=== PATIENT | female | born 1955 | race Caucasian/White ===

== ENCOUNTER → 2017-02-25 08:23 | Outpatient (POV) | payer MEDICARE, BC, SELFPAY ==
[2017-02-25 08:36] VITALS: BP 132/73; PULSE 69; RESP 18; O2SAT 94; BMI 37.3
--- NOTE | 2017-02-25 09:00 | P.CONS_ITS ---
[facility] Pain Management SOAP Note Subjective:: Patient is a very pleasant 61-year-old white female returns to our pain clinic today for follow-up visit after receiving a therapeutic lumbar epidural steroid injection at the L4-5 level. She reports 90% improvement terms of her low back pain as well as bilateral hip and leg pain after receiving the injection. Today her complaint is slight lumbar back pain that she describes as constant, dull, aching. However, she rates the pain 2/10. Patient reports the pain is a fraction of what it was prior to the injection. We have been treating her for degenerative disc disease lumbar spine with levels. Lumbar spondylosis. Multilevel lumbar facet arthropathy Objective:: She is awake alert oriented ?3. In no acute distress per action extension of the lumbar spine somewhat guarded standard pain. Deep tendon reflexes upper and lower extremities normal. Motor strength upper and lower extremities normal. There is no gross sensory deficit. Gait is normal. Assessment:: Disc disease lumbar spine multilevel spread lumbar spondylosis. Multilevel lumbar facet arthropathy Plan:: We will plan therapeutic lumbar epidural steroid injection as needed. Patient will return to see us in 2 months
== END ==
PROVIDERS: Family Provider Family Medicine; PCP Family Medicine; Visit Provider Nurse Anesthetist, Certified Registered
DX: M47.816 Spondylosis without myelopathy or radiculopathy, lumbar region (principal)
CPT/HCPCS: 99212

== ENCOUNTER → 2017-03-19 11:12 | Outpatient (CLI) | payer MEDICARE, BC, SELFPAY ==
[2017-03-19 12:19] LABS: Alanine Aminotransferase 38 U/L (12-78); Albumin/Globulin Ratio 1.4 (1.1-1.8); Alkaline Phosphatase 42 U/L (46-116); Anion Gap 10.7 mEq/L (5-15); Aspartate Amino Transferase 23 U/L (15-37); Bilirubin,Total 0.6 mg/dL (0.2-1.0); Blood Urea Nitrogen 23 mg/dL (7-18); Calcium 9.2 mg/dL (8.5-10.1); Carbon Dioxide 33 mmol/L (21.0-32.0); Chloride 105 mmol/L (98-107); Chol/HDL Ratio 4.3 (1-3.5); Cholesterol 190 mg/dL (140-200); Creatinine,Serum 0.96 mg/dL (0.55-1.02); Estimated Glomerular Filt Rate 59 ml/min (>60); Free T4 (Free Thyroxine) 1.74 ng/dl (0.76-1.46); GFR (African American) 71 ML/MIN (>60); Globulin 2.8 gm/dl (1.3-3.2); Glucose 96 mg/dL (74-106); HDL Cholesterol 44 mg/dL (29-89); LDL Cholesterol 111 mg/dL (0-130); Magnesium 1.7 mg/dL (1.4-2.2); Potassium 3.7 mmoL/L (3.5-5.1); Sodium 145 mmol/L (136-145); Thyroid Stimulating Hormone 0.45 uIU/ml (0.358-3.740); Total Protein,Serum 6.8 gm/dL (6.4-8.2); Triglycerides 173 mg/dL (30-200); VLDL Cholesterol 35 mg/dL (0-40)
== END ==
PROVIDERS: PCP Family Medicine; Visit Provider Family Medicine
DX: E78.2 Mixed hyperlipidemia (principal); E03.9 Hypothyroidism, unspecified
CPT/HCPCS: 36415; 80053; 80061; 83735; 84439; 84443

== ENCOUNTER → 2017-04-29 08:32 | Outpatient (POV) | payer MEDICARE, BC, SELFPAY ==
[2017-04-29 09:13] VITALS: BP 145/77; PULSE 74; RESP 18; O2SAT 94; BMI 37.0
--- NOTE | 2017-04-29 09:27 | HMH.PAINSOAP ---
[facility] Pain Management SOAP Note Subjective:: Patient is a very pleasant 62-year-old white female who returns to our pain clinic for follow-up in regards to her low back pain. She has had excellent relief from lumbar epidural steroid injections in the past. Patient received 80-90% relief of her pain symptoms for several months after each injection. Patient states her lumbar back pain is beginning to return. Patient states her pain is a 6 out of 10 today. Patient states most of her pain is in her low back and can intermittently go into her legs. Patient is much more functional after lumbar epidural steroid injections. Patient has tried and failed anti-inflammatory medications and physical therapy in the past. ROS General: no recent weight change, no fever, no sleep disturbances Respiratory: no cough, no shortness of air, no recurring pulmonary infections Cardiovascular/Peripheral Vascular: No chest pain, No palpitations, no edema, no shortness of breath. Gastrointestinal: no incontinence, normal bowel movements reported Genitourinary: no incontinence Musculoskeletal: Back pain Psychiatric: normal mood/ affect, [denies depression], [denies anxiety] Neurological: [denies weakness in extremities], [denies balance issues] Objective:: Physical Exam General: Alert and oriented x3, no acute distress, pleasant and cooperative, [on room air] Lungs: Resps E/U, Symmetrical chest expansion, Eyes: PERRL Musculoskeletal: Flexion and extension of lumbar spine somewhat guarded secondary to pain, deep tendon reflexes normal, strength in upper and lower extremities [5/5], normal gait noted, positive straight leg test bilaterally at 30? Neurological: speech clear, counter person equal, no gross sensory deficits Assessment:: Degenerative disc disease of the lumbar spine with lumbar radiculopathy, lumbar spondylosis, facet arthropathy Plan:: We will plan a repeat L4-L5 lumbar epidural steroid injection. Patient gets good relief from this. Patient has tried and failed anti-inflammatories and physical therapy. This note was dictated using voice recognition software and may contain errors or omissions
--- NOTE | 2017-04-29 09:30 | P.CONS_ITS ---
[facility] Pain Management SOAP Note Subjective:: Patient is a very pleasant 62-year-old white female who returns to our pain clinic for follow-up in regards to her low back pain. She has had excellent relief from lumbar epidural steroid injections in the past. Patient received 80 -90% relief of her pain symptoms for several months after each injection. Patient states her lumbar back pain is beginning to return. Patient states her pain is a 6 out of 10 today. Patient states most of her pain is in her low back and can intermittently go into her legs. Patient is much more functional after lumbar epidural steroid injections. Patient has tried and failed anti- inflammatory medications and physical therapy in the past. ROS General: no recent weight change, no fever, no sleep disturbances Respiratory: no cough, no shortness of air, no recurring pulmonary infections Cardiovascular/Peripheral Vascular: No chest pain, No palpitations, no edema, no shortness of breath. Gastrointestinal: no incontinence, normal bowel movements reported Genitourinary: no incontinence Musculoskeletal: Back pain Psychiatric: normal mood/ affect, [denies depression], [denies anxiety] Neurological: [denies weakness in extremities], [denies balance issues] Objective:: Physical Exam General: Alert and oriented x3, no acute distress, pleasant and cooperative, [ on room air] Lungs: Resps E/U, Symmetrical chest expansion, Eyes: PERRL Musculoskeletal: Flexion and extension of lumbar spine somewhat guarded secondary to pain, deep tendon reflexes normal, strength in upper and lower extremities [5/5], normal gait noted, positive straight leg test bilaterally at 30? Neurological: speech clear, addictions counselor equal, no gross sensory deficits Assessment:: Degenerative disc disease of the lumbar spine with lumbar radiculopathy, lumbar spondylosis, facet arthropathy Plan:: We will plan a repeat L4-L5 lumbar epidural steroid injection. Patient gets good relief from this. Patient has tried and failed anti-inflammatories and physical therapy. This note was dictated using voice recognition software and may contain errors or omissions
== END ==
PROVIDERS: Family Provider Family Medicine; PCP Family Medicine; Visit Provider Clinical Nurse Specialist Family Health
DX: M54.16 Radiculopathy, lumbar region (principal)
CPT/HCPCS: 99212

== ENCOUNTER 2017-05-15 12:40 | Day surgery (SDC) | payer MEDICARE, BC, SELFPAY ==
[2017-05-15 13:12] VITALS: BP 137/72; PULSE 71; RESP 18; TEMP 36.8; O2SAT 94; BMI 37.4
--- NOTE | 2017-05-15 13:40 | HMH.PMPROC ---
- Procedure Date: 05/15/17 Time: 13:40 Anesthesiologist:: Anders Nieto MD Complications:: None Pre-procedure Diagnosis:: Degenerative disc disease of lumbar spine with lumbar radiculopathy symptoms, lumbar spondylosis and facet arthropathy Post-procedure Diagnosis:: same Indications for Procedure:: Patient is a pleasant 62-year-old white female who we are treating her low back pain with lumbar radiculopathy symptoms. She had 80-90% relief of her pain symptoms for several months after her last injection. Her pain is starting to return. We will do repeat lumbar epidural steroid injection today to see if this gives her additional benefit. Procedure Details:: Lumbar epidural steroid injection under fluoroscopy Informed consent was obtained and the risk and benefits of the procedure was explained to the patient. The patient was taken to the procedure room. The patient was placed prone on the procedure table. The patient was prepped and draped in sterile fashion. C-arm fluoroscopy was used to view the lumbar spine. Skin and subcutaneous tissues were anesthetized using lidocaine. I placed an 18-gauge epidural needle and advanced into the L4-L5 interspace using fluoroscopic guidance and [id number] to air. After confirmation of needle placement in the epidural space with dye I injected 2 mL of lidocaine 1.5% with Depo-Medrol 80 mg. Patient tolerated the procedure well with no complications. Plan and Disposition:: We will follow-up with her in 2 weeks. We will reevaluate her symptoms at that time.
[2017-05-15 13:41] VITALS: BP 149/83; PULSE 67; RESP 18
[2017-05-15 13:42] VITALS: BP 136/69; PULSE 63; RESP 18
--- NOTE | 2017-05-15 13:45 | P.PCN_ITS ---
- Procedure Date: 05/15/17 Time: 13:40 Anesthesiologist:: Anders Nieto MD Complications:: None Pre-procedure Diagnosis:: Degenerative disc disease of lumbar spine with lumbar radiculopathy symptoms, lumbar spondylosis and facet arthropathy Post-procedure Diagnosis:: same Indications for Procedure:: Patient is a pleasant 62-year-old white female who we are treating her low back pain with lumbar radiculopathy symptoms. She had 80-90% relief of her pain symptoms for several months after her last injection. Her pain is starting to return. We will do repeat lumbar epidural steroid injection today to see if this gives her additional benefit. Procedure Details:: Lumbar epidural steroid injection under fluoroscopy Informed consent was obtained and the risk and benefits of the procedure was explained to the patient. The patient was taken to the procedure room. The patient was placed prone on the procedure table. The patient was prepped and draped in sterile fashion. C-arm fluoroscopy was used to view the lumbar spine. Skin and subcutaneous tissues were anesthetized using lidocaine. I placed an 18-gauge epidural needle and advanced into the L4-L5 interspace using fluoroscopic guidance and [id number] to air. After confirmation of needle placement in the epidural space with dye I injected 2 mL of lidocaine 1.5 % with Depo-Medrol 80 mg. Patient tolerated the procedure well with no complications. Plan and Disposition:: We will follow-up with her in 2 weeks. We will reevaluate her symptoms at that time.
[2017-05-15 13:52] VITALS: BP 148/72; PULSE 66; RESP 8; O2SAT 95
== END 2017-05-15 13:55 | disposition home or self-care (01) ==
LOC: SC.PAINP 12:42
PROVIDERS: Family Provider Family Medicine; PCP Family Medicine; Visit Provider Anesthesiology
DX: M51.16 Intervertebral disc disorders with radiculopathy, lumbar region (principal); M47.896 Other spondylosis, lumbar region; M12.88 Other specific arthropathies, not elsewhere classified, other specified site
CPT/HCPCS: 62323; J1040; Q9966

== ENCOUNTER → 2017-06-04 09:52 | Outpatient (POV) | payer MEDICARE, BC, SELFPAY ==
[2017-06-04 10:11] VITALS: BP 159/75; PULSE 88; RESP 20
--- NOTE | 2017-06-04 13:04 | HMH.PAINSOAP ---
[facility] Pain Management SOAP Note Subjective:: Patient is a very pleasant 62-year-old white female who returns to our pain clinic for follow-up after lumbar epidural steroid injection. Patient received 80% relief pain symptoms. She is doing quite well still. Patient states that she would like to have another injection when her lumbar back pain is beginning to return. Patient rates her pain a 3 out of 10 today. Patient states when she has pain it is in her low back and can intermittently go into her legs. Patient is much more functional after lumbar epidural steroid injections. Patient has tried and failed anti-inflammatory medications and physical therapy in the past. ROS General: no recent weight change, no fever, no sleep disturbances Respiratory: no cough, no shortness of air, no recurring pulmonary infections Cardiovascular/Peripheral Vascular: No chest pain, No palpitations, no edema, no shortness of breath. Gastrointestinal: no incontinence, normal bowel movements reported Genitourinary: no incontinence Musculoskeletal: Back pain Psychiatric: normal mood/ affect, [denies depression], [denies anxiety] Neurological: [denies weakness in extremities], [denies balance issues] Objective:: Physical Exam General: Alert and oriented x3, no acute distress, pleasant and cooperative, [on room air] Lungs: Resps E/U, Symmetrical chest expansion, Eyes: PERRL Musculoskeletal: Flexion and extension of lumbar spine somewhat guarded secondary to pain, deep tendon reflexes normal, strength in upper and lower extremities [5/5], slightly antalgic gait noted, bilateral straight leg raise test positive at 30?. Neurological: speech clear, bead machine operator equal, no gross sensory deficits Assessment:: Degenerative disc disease of the lumbar spine with lumbar radiculopathy symptoms, lumbar spondylosis and facet arthropathy Plan:: We will schedule the patient another lumbar epidural steroid injection at L4-L5. Given the efficacy of her previous injections. We will schedule her several weeks out. Patient is doing well at this time. Patient's tried and failed anti-inflammatories, medications, physical therapy and stretching therapy. Patient is doing extremely well with injective therapy. This note was dictated using voice recognition software and may contain errors or omissions
--- NOTE | 2017-06-04 13:07 | P.CONS_ITS ---
[facility] Pain Management SOAP Note Subjective:: Patient is a very pleasant 62-year-old white female who returns to our pain clinic for follow-up after lumbar epidural steroid injection. Patient received 80% relief pain symptoms. She is doing quite well still. Patient states that she would like to have another injection when her lumbar back pain is beginning to return. Patient rates her pain a 3 out of 10 today. Patient states when she has pain it is in her low back and can intermittently go into her legs. Patient is much more functional after lumbar epidural steroid injections. Patient has tried and failed anti-inflammatory medications and physical therapy in the past. ROS General: no recent weight change, no fever, no sleep disturbances Respiratory: no cough, no shortness of air, no recurring pulmonary infections Cardiovascular/Peripheral Vascular: No chest pain, No palpitations, no edema, no shortness of breath. Gastrointestinal: no incontinence, normal bowel movements reported Genitourinary: no incontinence Musculoskeletal: Back pain Psychiatric: normal mood/ affect, [denies depression], [denies anxiety] Neurological: [denies weakness in extremities], [denies balance issues] Objective:: Physical Exam General: Alert and oriented x3, no acute distress, pleasant and cooperative, [ on room air] Lungs: Resps E/U, Symmetrical chest expansion, Eyes: PERRL Musculoskeletal: Flexion and extension of lumbar spine somewhat guarded secondary to pain, deep tendon reflexes normal, strength in upper and lower extremities [5/5], slightly antalgic gait noted, bilateral straight leg raise test positive at 30?. Neurological: speech clear, client renewal specialist equal, no gross sensory deficits Assessment:: Degenerative disc disease of the lumbar spine with lumbar radiculopathy symptoms , lumbar spondylosis and facet arthropathy Plan:: We will schedule the patient another lumbar epidural steroid injection at L4- L5. Given the efficacy of her previous injections. We will schedule her several weeks out. Patient is doing well at this time. Patient's tried and failed anti-inflammatories, medications, physical therapy and stretching therapy. Patient is doing extremely well with injective therapy. This note was dictated using voice recognition software and may contain errors or omissions
== END ==
PROVIDERS: Family Provider Family Medicine; PCP Family Medicine; Visit Provider Clinical Nurse Specialist Family Health
DX: M47.26 Other spondylosis with radiculopathy, lumbar region (principal)
CPT/HCPCS: 99212

== ENCOUNTER → 2017-07-22 10:53 | Outpatient (POV) | payer MEDICARE, BC, SELFPAY ==
[2017-07-22 11:19] VITALS: BP 148/70; PULSE 63; RESP 18; O2SAT 98; BMI 38.1
--- NOTE | 2017-07-22 13:02 | HMH.PAINSOAP ---
[facility] Pain Management SOAP Note Subjective:: Is a pleasant 62-year-old white female who presents today for follow-up after lumbar epidural steroid injection. Patient states she is not getting the same relief that she typically does from these injections. She is also having a new onset of bilateral leg weakness. Patient not had recent MRI. Patient denies any bowel or bladder dysfunction. Patient states that she will be standing in her legs will just give out. Patient is also having myofascial pain and thoracic paraspinous. Patient has had trigger point injections in the past with good relief. She is interested in repeating these. ROS General: no recent weight change, no fever, no sleep disturbances Respiratory: no cough, no shortness of air, no recurring pulmonary infections Cardiovascular/Peripheral Vascular: No chest pain, No palpitations, no edema, no shortness of breath. Gastrointestinal: no incontinence, normal bowel movements reported Genitourinary: no incontinence Musculoskeletal: Back pain, myofascial pain Psychiatric: normal mood/ affect Neurological: [denies weakness in extremities], [denies balance issues] Objective:: Physical Exam General: Alert and oriented x3, no acute distress, pleasant and cooperative, [on room air] Lungs: Resps E/U, Symmetrical chest expansion, Eyes: PERRL Musculoskeletal: Flexion and extension of lumbar spine somewhat guarded secondary to pain, deep tendon reflexes normal, strength in upper and lower extremities [5/5], antalgic gait noted, positive straight leg raise test at 30? bilaterally, palpable trigger points of the thoracic paraspinous Neurological: speech clear, rock singer equal, no gross sensory deficits Assessment:: Degenerative disc disease of the lumbar spine with lumbar radiculopathy symptoms and myofascial pain syndrome Plan:: We will schedule trigger point injections of the thoracic paraspinous bilaterally. We will schedule an MRI for the patient to discern new lumbar pathology given the new onset of weakness in her bilateral lower legs. I will follow-up with the patient after her injections or her MRI which ever comes first. This note was dictated using voice recognition software and may contain errors or omissions
--- NOTE | 2017-07-22 13:06 | P.CONS_ITS ---
[facility] Pain Management SOAP Note Subjective:: Is a pleasant 62-year-old white female who presents today for follow-up after lumbar epidural steroid injection. Patient states she is not getting the same relief that she typically does from these injections. She is also having a new onset of bilateral leg weakness. Patient not had recent MRI. Patient denies any bowel or bladder dysfunction. Patient states that she will be standing in her legs will just give out. Patient is also having myofascial pain and thoracic paraspinous. Patient has had trigger point injections in the past with good relief. She is interested in repeating these. ROS General: no recent weight change, no fever, no sleep disturbances Respiratory: no cough, no shortness of air, no recurring pulmonary infections Cardiovascular/Peripheral Vascular: No chest pain, No palpitations, no edema, no shortness of breath. Gastrointestinal: no incontinence, normal bowel movements reported Genitourinary: no incontinence Musculoskeletal: Back pain, myofascial pain Psychiatric: normal mood/ affect Neurological: [denies weakness in extremities], [denies balance issues] Objective:: Physical Exam General: Alert and oriented x3, no acute distress, pleasant and cooperative, [ on room air] Lungs: Resps E/U, Symmetrical chest expansion, Eyes: PERRL Musculoskeletal: Flexion and extension of lumbar spine somewhat guarded secondary to pain, deep tendon reflexes normal, strength in upper and lower extremities [5/5], antalgic gait noted, positive straight leg raise test at 30? bilaterally, palpable trigger points of the thoracic paraspinous Neurological: speech clear, satellite instruction facilitator equal, no gross sensory deficits Assessment:: Degenerative disc disease of the lumbar spine with lumbar radiculopathy symptoms and myofascial pain syndrome Plan:: We will schedule trigger point injections of the thoracic paraspinous bilaterally. We will schedule an MRI for the patient to discern new lumbar pathology given the new onset of weakness in her bilateral lower legs. I will follow-up with the patient after her injections or her MRI which ever comes first. This note was dictated using voice recognition software and may contain errors or omissions
== END ==
PROVIDERS: Family Provider Family Medicine; PCP Family Medicine; Visit Provider Clinical Nurse Specialist Family Health
DX: M54.16 Radiculopathy, lumbar region (principal)
CPT/HCPCS: 99212

== ENCOUNTER → 2017-07-26 09:57 | Outpatient (CLI) | payer MEDICARE, BC, SELFPAY ==
--- NOTE | 2017-07-26 10:00 | MR_ITS ---
MR lumbar spine wo con, MR 3-d myelogram/MRCP Ordering Physician: Anders Nieto MD Patient Age: 62 years: Female HISTORY: ITS.REASON: WORSENING LOW BACK PAIN Left-sided low back pain numbness in lower back weakness left leg symptoms one year. No trauma. TECHNIQUE: Sagittal STIR, T1, T2, axial T1 and T2. On 1.5T Siemens wide bore MRI. 3-D MR myelogram image set obtained & performed on MRI workstation. Additional sagittal thin section T2 weighted dataset obtained from this latter acquisition as well (---76 CPT) COMPARISON :03/08/[address] abdomen pelvis from April 2015 FINDINGS Anterolisthesis L4 on L5 is again noted and stable with the postsurgical changes L4/L5 Conus ends appropriately at L1. It the thecal sac tapers rather abruptly at S1 level with small perineural cyst midline at S1-S2 level L5/S1 trace disc space narrowing minimal mild disc bulge.. Suggestion of small additional focal disc protrusion just left of midline , best seen on axial image 23.. & Sagittal/8 T1 weighted image set.. The small disc protrusion to the left slightly flattened/ indents the thecal sac to the left & may just impinge upon exiting right S1 nerve root. Are there left S1 or S2 radicular symptoms??. This feature appears perhaps very slightly more evident than on February 2015 MR.. Moderate/generous Bilateral facet hypertrophy and arthropathy also seen at this level of significant progress subtle somewhat.. L4/5. Slight 4 mm anterolisthesis of L4 on L5 is again noted. Scant if any disc bulge. Appears to be more pronounced facet hypertrophy, bilateral... Minimal right foraminal encroachment again noted.. There is also a metallic spacer device between the posterior spinous processes of L4 and L5. This is best seen on prior CT abdomen reconstructions from April 2015. On MR today it yields field distortion artifact from the metallic elements. L3/4 scant disc bulge. Only scant facet arthropathy.., L2/3 disc intact. Scant facet arthropathy.., L1/2, T12/L1 disc intact & unremarkable. T11/12 disc space narrowing subtle disc bulge. Minor spondylosis. Not not of significance... Anterior marginal osteophytes 3-D MR myelogram image set ... IMPRESSION...... . L5/S1 mild disc bulge with small focal disc protrusion left of midline-. This feature perhaps slightly more evident than on previous 2016 study. Also Slight progression of facet arthropathy bilaterally again noted. Left >right . L4/5. Stable mild anterolisthesis of L4 on 5. Metallic strut between posterior spinous processes again noted.. Progressive facet hypertrophy bilaterally, since 2016.
== END ==
PROVIDERS: Family Provider Family Medicine; PCP Family Medicine; Visit Provider Anesthesiology
DX: M54.5 Low back pain (principal)
CPT/HCPCS: 72148; 76376

== ENCOUNTER → 2017-08-26 10:28 | Outpatient (POV) | payer MEDICARE, BC, SELFPAY ==
[2017-08-26 11:04] VITALS: BP 170/100; PULSE 88; RESP 20; O2SAT 98; BMI 38.2
--- NOTE | 2017-08-26 11:22 | HMH.PAINSOAP ---
[facility] Pain Management SOAP Note Subjective:: Patient is a pleasant 62-year-old white female who presents today for follow-up in regards to trigger point injections. Patient states her low back pain is worsening. Patient has been getting epidural steroid injections in the past with good relief however they are no longer effective for her. Patient did get a new MRI showing worsening degenerative changes and facet arthropathy at L4-L5 and L5-S1 with worsening disc bulge at both these levels. Patient rates her pain a 7 out of 10 today. She states it is constant. Patient's failed conservative treatment including injections, physical therapy, oral medications and anti-inflammatories. Patient is not a surgical candidate. Patient has spoke with Dr. Nieto and myself in regards to intrathecal pump. I believe that this would be beneficial for her. I answered all of her questions and concerns and explained to her the trialing and implantation process. ROS General: no recent weight change, no fever, no sleep disturbances Respiratory: no cough, no shortness of air, no recurring pulmonary infections Cardiovascular/Peripheral Vascular: No chest pain, No palpitations, no edema, no shortness of breath. Gastrointestinal: no incontinence, normal bowel movements reported Genitourinary: no incontinence Musculoskeletal: Back pain, leg pain Psychiatric: normal mood/ affect Neurological: [denies weakness in extremities], [denies balance issues] Objective:: Physical Exam General: Alert and oriented x3, no acute distress, pleasant and cooperative, [on room air] Lungs: Resps E/U, Symmetrical chest expansion, Eyes: PERRL Musculoskeletal: Flexion and extension of lumbar spine somewhat guarded secondary to pain, deep tendon reflexes normal, strength in upper and lower extremities [5/5], [abnormal gait noted] Neurological: speech clear, electric stop installer equal, no gross sensory deficits Assessment:: Degenerative disc disease of the lumbar spine with lumbar radiculopathy Plan:: We will plan on intrathecal pain pump trial for this patient. Patient's failed other conservative measures. We will get a psychological evaluation prior to this. I will follow-up with the patient after her trial or implantation. This note was dictated using voice recognition software and may contain errors or omissions
--- NOTE | 2017-08-26 11:25 | P.CONS_ITS ---
[facility] Pain Management SOAP Note Subjective:: Patient is a pleasant 62-year-old white female who presents today for follow-up in regards to trigger point injections. Patient states her low back pain is worsening. Patient has been getting epidural steroid injections in the past with good relief however they are no longer effective for her. Patient did get a new MRI showing worsening degenerative changes and facet arthropathy at L4-L5 and L5-S1 with worsening disc bulge at both these levels. Patient rates her pain a 7 out of 10 today. She states it is constant. Patient's failed conservative treatment including injections, physical therapy, oral medications and anti-inflammatories. Patient is not a surgical candidate. Patient has spoke with Dr. Nieto and myself in regards to intrathecal pump. I believe that this would be beneficial for her. I answered all of her questions and concerns and explained to her the trialing and implantation process. ROS General: no recent weight change, no fever, no sleep disturbances Respiratory: no cough, no shortness of air, no recurring pulmonary infections Cardiovascular/Peripheral Vascular: No chest pain, No palpitations, no edema, no shortness of breath. Gastrointestinal: no incontinence, normal bowel movements reported Genitourinary: no incontinence Musculoskeletal: Back pain, leg pain Psychiatric: normal mood/ affect Neurological: [denies weakness in extremities], [denies balance issues] Objective:: Physical Exam General: Alert and oriented x3, no acute distress, pleasant and cooperative, [ on room air] Lungs: Resps E/U, Symmetrical chest expansion, Eyes: PERRL Musculoskeletal: Flexion and extension of lumbar spine somewhat guarded secondary to pain, deep tendon reflexes normal, strength in upper and lower extremities [5/5], [abnormal gait noted] Neurological: speech clear, chainsaw mechanic equal, no gross sensory deficits Assessment:: Degenerative disc disease of the lumbar spine with lumbar radiculopathy Plan:: We will plan on intrathecal pain pump trial for this patient. Patient's failed other conservative measures. We will get a psychological evaluation prior to this. I will follow-up with the patient after her trial or implantation. This note was dictated using voice recognition software and may contain errors or omissions
== END ==
PROVIDERS: Family Provider Family Medicine; PCP Family Medicine; Visit Provider Clinical Nurse Specialist Family Health
DX: M54.16 Radiculopathy, lumbar region (principal)
CPT/HCPCS: 99212

== ENCOUNTER → 2017-09-30 10:41 | Outpatient (POV) | payer MEDICARE, BC, SELFPAY ==
[2017-09-30 11:25] VITALS: BP 153/85; PULSE 83; RESP 18; O2SAT 98; BMI 39.2
--- NOTE | 2017-09-30 12:54 | HMH.PMPROC ---
- Procedure Date: 09/30/17 Time: 11:28 Anesthesiologist:: Ivonne Guerrero APRN Complications:: None Pre-procedure Diagnosis:: Degenerative disc disease lumbar spine with lumbar radiculopathy Post-procedure Diagnosis:: Same Indications for Procedure:: Physical pleasant 62-year-old white female who presents today for suture removal of her intrathecal pain pump implant. Patient is currently on a 0.5 mg a day infusion of morphine. Patient is having quite a bit of nausea however she states she has no pain. We will decrease her intrathecal infusion today and start her on Zofran 4 mg. Patient implant site looks good stitches have been removed. There is no sign symptoms of infection. Physical Exam General: Alert and oriented x3, no acute distress, pleasant and cooperative, [on room air] Lungs: Resps E/U, Symmetrical chest expansion, Eyes: PERRL Musculoskeletal: Flexion and extension of lumbar spine somewhat guarded secondary to pain, deep tendon reflexes normal, strength in upper and lower extremities [5/5], [abnormal gait noted] Neurological: speech clear, sample tester grinder equal, no gross sensory deficits Procedure Details:: Informed consent was obtained and the risk and benefits of the procedure were explained to the patient. The patient was taken to the procedure room where noninvasive monitoring was placed including noninvasive blood pressure cuff and pulse oximeter. Patient's pump was interrogated. The infusion rate was decreased to 0.25 mg per day. The patient tolerated the procedure well. Plan and Disposition:: We will call in Zofran 4 mg every 8 hours as needed for the patient. I will see her back in 1 week. Patient has been advised to call us if she has any issues prior to her next appointment. This note was dictated using voice recognition software and may contain errors or omissions
--- NOTE | 2017-09-30 12:57 | P.PCN_ITS ---
- Procedure Date: 09/30/17 Time: 11:28 Anesthesiologist:: Ivonne Guerrero APRN Complications:: None Pre-procedure Diagnosis:: Degenerative disc disease lumbar spine with lumbar radiculopathy Post-procedure Diagnosis:: Same Indications for Procedure:: Physical pleasant 62-year-old white female who presents today for suture removal of her intrathecal pain pump implant. Patient is currently on a 0.5 mg a day infusion of morphine. Patient is having quite a bit of nausea however she states she has no pain. We will decrease her intrathecal infusion today and start her on Zofran 4 mg. Patient implant site looks good stitches have been removed. There is no sign symptoms of infection. Physical Exam General: Alert and oriented x3, no acute distress, pleasant and cooperative, [ on room air] Lungs: Resps E/U, Symmetrical chest expansion, Eyes: PERRL Musculoskeletal: Flexion and extension of lumbar spine somewhat guarded secondary to pain, deep tendon reflexes normal, strength in upper and lower extremities [5/5], [abnormal gait noted] Neurological: speech clear, oven heater equal, no gross sensory deficits Procedure Details:: Informed consent was obtained and the risk and benefits of the procedure were explained to the patient. The patient was taken to the procedure room where noninvasive monitoring was placed including noninvasive blood pressure cuff and pulse oximeter. Patient's pump was interrogated. The infusion rate was decreased to 0.25 mg per day. The patient tolerated the procedure well. Plan and Disposition:: We will call in Zofran 4 mg every 8 hours as needed for the patient. I will see her back in 1 week. Patient has been advised to call us if she has any issues prior to her next appointment. This note was dictated using voice recognition software and may contain errors or omissions
== END ==
PROVIDERS: Family Provider Family Medicine; PCP Family Medicine; Visit Provider Clinical Nurse Specialist Family Health
DX: M51.16 Intervertebral disc disorders with radiculopathy, lumbar region (principal)
CPT/HCPCS: 62368

== ENCOUNTER → 2017-10-04 08:16 | Outpatient (CLI) | payer MEDICARE, BC, SELFPAY ==
--- NOTE | 2017-10-04 08:16 | MM_ITS ---
MM Dig screening mamm BI w/CAD ORDERING PHYSICIAN : Wayne Pavon MD PATIENT AGE: 62 years GENDER: Female COMPARISON: Previous bilateral mammogram 10/01/2016 & September 2015 & INDICATION: ITS.REASON: screening no hormones no new complaints noncontributory family history TECHNIQUE: Standard CC and MLO images were obtained. R2 CAD reviewed. FINDINGS: Low-density breast bilaterally with generalized fatty replacement.. No dominant mass nor suspicious calcifications of concern . Follow-up in one year recommended and encouraged. No new areas concern. CAD computer review highlights no areas of concern either. . Left breast. Scattered small areas of density are similar to the previous available studies from 2015, 2016, 2014 IMPRESSION: Stable bilateral mammogram. . No significant new areas of concern Low-density breast. No areas of significant concern . Bilateral follow-up in one year recommended. BI-RADS Category: 1 Negative RECOMMENDED FOLLOW-UP: 1YR 1 YEAR FOLLOW-UP (A letter has been sent to the patient regarding results of the study.)
== END ==
PROVIDERS: Family Provider Family Medicine; PCP Family Medicine; Visit Provider Obstetrics & Gynecology
DX: Z12.31 Encounter for screening mammogram for malignant neoplasm of breast (principal)
CPT/HCPCS: 77067

== ENCOUNTER → 2017-10-07 11:25 | Outpatient (POV) | payer MEDICARE, BC, SELFPAY ==
[2017-10-07 11:35] VITALS: BP 143/55; PULSE 80; RESP 18; O2SAT 98; BMI 39.4
--- NOTE | 2017-10-07 12:05 | HMH.PAINSOAP ---
[facility] Pain Management SOAP Note Subjective:: Patient is a pleasant 62-year-old white female who presents today for follow-up. At her last visit patient was having nausea due to her interthecal infusion of 0.5 mg of morphine a day. We decreased her to 0.25 mg per day and she is doing well. Patient denies nausea however she is having constipation. Patient states that her pain in her back is relieved and she is able to walk far distances. ROS General: no recent weight change, no fever, no sleep disturbances Respiratory: no cough, no shortness of air, no recurring pulmonary infections Cardiovascular/Peripheral Vascular: No chest pain, No palpitations, no edema, no shortness of breath. Gastrointestinal: Constipation Genitourinary: no incontinence Musculoskeletal: Back pain Psychiatric: normal mood/ affect Neurological: [denies weakness in extremities], [denies balance issues] Objective:: Physical Exam General: Alert and oriented x3, no acute distress, pleasant and cooperative, [on room air] Lungs: Resps E/U, Symmetrical chest expansion, Eyes: PERRL Musculoskeletal: Flexion and extension of lumbar spine somewhat guarded secondary to pain, deep tendon reflexes normal, strength in upper and lower extremities [5/5], slightly antalgic gait noted Neurological: speech clear, deli cutter slicer equal, no gross sensory deficits Assessment:: Degenerative disc disease of lumbar spine with lumbar spondylosis and facet arthropathy Plan:: We will continue the patient on her intrathecal morphine infusion of 0.25 mg daily. We will call in some Linzess 145 mcg daily to see if this helps with her constipation. I will follow patient in 2 weeks. This note was dictated using voice recognition software and may contain errors or omissions
--- NOTE | 2017-10-07 12:09 | P.CONS_ITS ---
[facility] Pain Management SOAP Note Subjective:: Patient is a pleasant 62-year-old white female who presents today for follow- up. At her last visit patient was having nausea due to her interthecal infusion of 0.5 mg of morphine a day. We decreased her to 0.25 mg per day and she is doing well. Patient denies nausea however she is having constipation. Patient states that her pain in her back is relieved and she is able to walk far distances. ROS General: no recent weight change, no fever, no sleep disturbances Respiratory: no cough, no shortness of air, no recurring pulmonary infections Cardiovascular/Peripheral Vascular: No chest pain, No palpitations, no edema, no shortness of breath. Gastrointestinal: Constipation Genitourinary: no incontinence Musculoskeletal: Back pain Psychiatric: normal mood/ affect Neurological: [denies weakness in extremities], [denies balance issues] Objective:: Physical Exam General: Alert and oriented x3, no acute distress, pleasant and cooperative, [ on room air] Lungs: Resps E/U, Symmetrical chest expansion, Eyes: PERRL Musculoskeletal: Flexion and extension of lumbar spine somewhat guarded secondary to pain, deep tendon reflexes normal, strength in upper and lower extremities [5/5], slightly antalgic gait noted Neurological: speech clear, manager clinical services equal, no gross sensory deficits Assessment:: Degenerative disc disease of lumbar spine with lumbar spondylosis and facet arthropathy Plan:: We will continue the patient on her intrathecal morphine infusion of 0.25 mg daily. We will call in some Linzess 145 mcg daily to see if this helps with her constipation. I will follow patient in 2 weeks. This note was dictated using voice recognition software and may contain errors or omissions
== END ==
PROVIDERS: Family Provider Family Medicine; PCP Family Medicine; Visit Provider Clinical Nurse Specialist Family Health
DX: M51.36 Other intervertebral disc degeneration, lumbar region (principal); M47.896 Other spondylosis, lumbar region; M54.06 Panniculitis affecting regions of neck and back, lumbar region
CPT/HCPCS: 99213

== ENCOUNTER → 2017-10-22 09:03 | Outpatient (POV) | payer MEDICARE, BC, SELFPAY ==
[2017-10-22 10:06] VITALS: BP 132/61; PULSE 53; RESP 18; O2SAT 98; BMI 38.4
--- NOTE | 2017-10-22 10:11 | HMH.PMPROC ---
- Procedure Date: 10/22/17 Time: 09:55 Anesthesiologist:: Ivonne Guerrero APRN Complications:: None Pre-procedure Diagnosis:: Degenerative disc disease of lumbar spine with lumbar radiculopathy Post-procedure Diagnosis:: Same Indications for Procedure:: Patient is a pleasant 62-year-old white female who presents today for intrathecal pain pump adjustment. Patient was having some nausea with her intrathecal infusion of morphine at 0.5 mg a day. She was decreased to 0.25 mg per day and the nausea decreased. Patient then was having some constipation however this is been corrected with Linzess. Patient is doing well right now other than her pain she rates that as 7 out of 10. Patient is no longer having any nausea. We were slight increase in her intrathecal infusion today. Physical Exam General: Alert and oriented x3, no acute distress, pleasant and cooperative, [on room air] Lungs: Resps E/U, Symmetrical chest expansion, Eyes: PERRL Musculoskeletal: Flexion and extension of lumbar spine somewhat guarded secondary to pain, deep tendon reflexes normal, strength in upper and lower extremities [5/5], slightly antalgic gait noted Neurological: speech clear, manager change equal, no gross sensory deficits Procedure Details:: Informed consent was obtained and the risk and benefits of the procedure were explained to the patient. The patient was taken to the procedure room where noninvasive monitoring was placed including noninvasive blood pressure cuff and pulse oximeter. Patient's pump was interrogated. The infusion rate was increased to 0.3 mg of morphine a day. The patient tolerated the procedure well. Plan and Disposition:: We will see the patient back at her next intrathecal pain pump refill. Patient's been instructed to call the office if she has any issues prior to next appointment. This note was dictated using voice recognition software and may contain errors or omissions
--- NOTE | 2017-10-22 10:16 | P.PCN_ITS ---
- Procedure Date: 10/22/17 Time: 09:55 Anesthesiologist:: Ivonne Guerrero APRN Complications:: None Pre-procedure Diagnosis:: Degenerative disc disease of lumbar spine with lumbar radiculopathy Post-procedure Diagnosis:: Same Indications for Procedure:: Patient is a pleasant 62-year-old white female who presents today for intrathecal pain pump adjustment. Patient was having some nausea with her intrathecal infusion of morphine at 0.5 mg a day. She was decreased to 0.25 mg per day and the nausea decreased. Patient then was having some constipation however this is been corrected with Linzess. Patient is doing well right now other than her pain she rates that as 7 out of 10. Patient is no longer having any nausea. We were slight increase in her intrathecal infusion today. Physical Exam General: Alert and oriented x3, no acute distress, pleasant and cooperative, [on room air] Lungs: Resps E/U, Symmetrical chest expansion, Eyes: PERRL Musculoskeletal: Flexion and extension of lumbar spine somewhat guarded secondary to pain, deep tendon reflexes normal, strength in upper and lower extremities [5/5], slightly antalgic gait noted Neurological: speech clear, speech scientist equal, no gross sensory deficits Procedure Details:: Informed consent was obtained and the risk and benefits of the procedure were explained to the patient. The patient was taken to the procedure room where noninvasive monitoring was placed including noninvasive blood pressure cuff and pulse oximeter. Patient's pump was interrogated. The infusion rate was increased to 0.3 mg of morphine a day. The patient tolerated the procedure well. Plan and Disposition:: We will see the patient back at her next intrathecal pain pump refill. Patient 's been instructed to call the office if she has any issues prior to next appointment. This note was dictated using voice recognition software and may contain errors or omissions
== END ==
PROVIDERS: Family Provider Family Medicine; PCP Family Medicine; Visit Provider Clinical Nurse Specialist Family Health
DX: M51.16 Intervertebral disc disorders with radiculopathy, lumbar region (principal)
CPT/HCPCS: 62368; 99213

== ENCOUNTER → 2017-11-05 10:22 | Outpatient (POV) | payer MEDICARE, BC, SELFPAY ==
[2017-11-05 10:53] VITALS: BP 158/88; PULSE 78; RESP 16; TEMP 36.6; O2SAT 97; BMI 38.1
--- NOTE | 2017-11-05 11:11 | HMH.PMPROC ---
- Procedure Date: 11/05/17 Time: 11:00 Anesthesiologist:: Ivonne Guerrero APRN Complications:: None Pre-procedure Diagnosis:: Degenerative disc disease of lumbar spine with lumbar radiculopathy Post-procedure Diagnosis:: Same Indications for Procedure:: Patient is a pleasant 62-year-old white female who presents today for intrathecal pain pump adjustment. She was having some side effects however these have all resolved. Patient's on her current intrathecal dose of 0.3 mg a day. She rates her pain a 7 out of 10 today. Patient will have her PTC set up today. Physical Exam General: Alert and oriented x3, no acute distress, pleasant and cooperative, [on room air] Lungs: Resps E/U, Symmetrical chest expansion, Eyes: PERRL Musculoskeletal: Flexion and extension of lumbar spine somewhat guarded secondary to pain, deep tendon reflexes normal, strength in upper and lower extremities [5/5], slightly antalgic gait noted Neurological: speech clear, bench precision assembler equal, no gross sensory deficits Procedure Details:: Informed consent was obtained and the risk and benefits of the procedure were explained to the patient. The patient was taken to the procedure room where noninvasive monitoring was placed including noninvasive blood pressure cuff and pulse oximeter. Patient's pump was interrogated. The infusion rate was increased to 0.5 mg a day and her PTC was set up at 0.05 mg every 6 hours as needed. The patient tolerated the procedure well. Plan and Disposition:: We will follow-up with this patient at her intrathecal pain pump refill. She has been instructed to call the office if she has any issue prior to her next appointment This note was dictated using voice recognition software and may contain errors or omissions
== END ==
PROVIDERS: Family Provider Family Medicine; PCP Family Medicine; Visit Provider Clinical Nurse Specialist Family Health
DX: M51.16 Intervertebral disc disorders with radiculopathy, lumbar region (principal)
CPT/HCPCS: 62368; 99212

== ENCOUNTER → 2017-11-19 13:34 | Outpatient (POV) | payer MEDICARE, BC, SELFPAY ==
[2017-11-19 14:15] VITALS: BP 143/80; PULSE 92; RESP 18; TEMP 37; O2SAT 96; BMI 37.3
--- NOTE | 2017-11-19 14:32 | HMH.PMPROC ---
- Procedure Date: 11/19/17 Time: 14:00 Anesthesiologist:: Ivonne Guerrero APRN Complications:: None Pre-procedure Diagnosis:: Degenerative disc disease lumbar spine with lumbar radiculopathy Post-procedure Diagnosis:: Same Indications for Procedure:: Patient is a pleasant 62-year-old white female who presents today for intrathecal pain pump reprogramming. Patient has had some increased pain. According to her she has been up and much more active lately. Patient is having bilateral leg pain. Patient is utilizing her bolus however she feels that she could potentially use more during the day since she is more active. She denies any side effects or medication. 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 The patient was taken to the procedure room where noninvasive monitoring was placed including noninvasive blood pressure cuff and pulse oximeter. Patient's pump was interrogated. The infusion rate was increased which increased to 0.55 mg/day and her PTC was set to 0.055 every 4 hours as needed. The patient tolerated the procedure well. Plan and Disposition:: We will follow-up with the patient at her next intrathecal pain pump refill. Patient's been instructed to call the office if she has any issues prior to her next event. This note was dictated using voice recognition software and may contain errors or omissions
== END ==
PROVIDERS: Family Provider Family Medicine; PCP Family Medicine; Visit Provider Clinical Nurse Specialist Family Health
DX: M51.16 Intervertebral disc disorders with radiculopathy, lumbar region (principal)
CPT/HCPCS: 62368

== ENCOUNTER → 2017-11-27 13:37 | Outpatient (POV) | payer MEDICARE, BC, SELFPAY ==
[2017-11-27 14:15] VITALS: BP 165/78; PULSE 69; RESP 18; TEMP 36.6; O2SAT 96; BMI 36.9
--- NOTE | 2017-12-18 09:15 | HMH.PMPROC ---
- Procedure Date: 11/27/17 Time: 15:00 Anesthesiologist:: Anders Nieto MD Complications:: None Pre-procedure Diagnosis:: Degenerative disc disease of lumbar spine with lumbar radiculopathy symptoms Post-procedure Diagnosis:: Same Indications for Procedure:: This patient is a pleasant 62-year-old white female who recently had her intrathecal morphine pain pump increase. She is now developed some shaking and some unsteadiness. I do suspect that she may be getting too much medicine. We will decrease her intrathecal infusion to 0.55 mg/day from 0.7 mg/day. Procedure Details:: Adjustment and analysis of intrathecal pain pump Informed consent was obtained and the risk and benefits of the procedure was explained to the patient. Patient was taken to the procedure room. The pump was interrogated. Intrathecal morphine infusion was decreased to 0.55 mg/day from 0.7 mg/day. Patient tolerated the procedure well with no complications. Plan and Disposition:: We will follow-up with her in 2 weeks. Will reevaluate symptoms at that
== END ==
PROVIDERS: Family Provider Family Medicine; PCP Family Medicine; Visit Provider Anesthesiology
DX: M51.16 Intervertebral disc disorders with radiculopathy, lumbar region (principal)
CPT/HCPCS: 62368

== ENCOUNTER → 2018-03-14 08:03 | Outpatient (CLI) | payer MEDICARE, BC, SELFPAY ==
--- NOTE | 2018-03-14 08:30 | US_ITS ---
US abdomen limited History:Lower abdominal pain, loss of appetite Ordering Physician:Monique Robertson Patient Age: 63 years Comparison:None Findings: Pancreas:Unremarkable. No obvious mass or abnormal fluid collection. No ductal dilatation Liver:Diffuse fatty infiltration of the liver. No focal liver lesions demonstrated. Appropriate direction of blood flow within nondilated portal vein. Right Kidney:Unremarkable. Normal size and echogenicity. No hydronephrosis Gallbladder:Status post cholecystectomy. Common bile duct is slightly prominent at 8 mm not unusual in a patient that has had a prior cholecystectomy. Impression: Prior cholecystectomy. Fatty liver
== END ==
PROVIDERS: PCP Nurse Practitioner Family; Visit Provider Nurse Practitioner Family
DX: R10.10 Upper abdominal pain, unspecified (principal); R63.0 Anorexia; R63.4 Abnormal weight loss
CPT/HCPCS: 76705

== ENCOUNTER → 2018-06-11 10:09 | Outpatient (CLI) | payer MEDICARE, BC, SELFPAY ==
--- NOTE | 2018-06-11 10:13 | XR_ITS ---
XR KUB HISTORY: ITS.REASON: abdominal pain/bloating ORDERING PHYSICIAN: Floyd Carranza MD PATIENT AGE: 63 years COMPARISON: None FINDINGS: The bowel gas pattern is unremarkable. No obvious obstruction.. No abnormal calcifications are evident. No obvious renal or ureteral calculi.. No acute bony anomalies evident. There is an epidural pain pump present. Metallic device is noted over L5-S1. IMPRESSION: No acute finding
== END ==
PROVIDERS: PCP Family Medicine; Visit Provider Surgery
DX: R10.9 Unspecified abdominal pain (principal); R14.0 Abdominal distension (gaseous)
CPT/HCPCS: 74018

== ENCOUNTER → 2018-06-16 08:33 | Outpatient (CLI) | payer MEDICARE, BC, SELFPAY ==
--- NOTE | 2018-06-16 08:37 | FL_ITS ---
FL upper GI small bowel HISTORY: ITS.REASON: abdominal pain ORDERING PHYSICIAN: Floyd Carranza MD PATIENT AGE: 63 years Comparison: None FINDINGS: Fitting Room Inspector exam shows an epidural infusion pump in the right lower quadrant with postsurgical changes at the L5-S1 region. There is a small gastroesophageal hernia. Initially this was felt to represent a para esophageal hernia however, on further interrogation this appears to represent a hiatal hernia. This would compare to the CT scan of 04/28/2015. No ulcer or mass is evident. The small bowel has an unremarkable appearance. No obstructing lesions. No mucosal abnormality. Spot views of the terminal ileum are unremarkable. IMPRESSION: 1. Small hiatal hernia. 2. Otherwise negative upper GI and small bowel follow-through
== END ==
PROVIDERS: PCP Family Medicine; Visit Provider Surgery
DX: R13.10 Dysphagia, unspecified (principal)
CPT/HCPCS: 74245

== ENCOUNTER → 2018-06-30 09:36 | Outpatient (CLI) | payer MEDICARE, BC, SELFPAY ==
--- NOTE | 2018-06-30 09:37 | NM_ITS ---
NM gastric emptying study CLINICAL INDICATION: ITS.REASON: gastroparesis ORDERING PHYSICIAN: Floyd Carranza MD PATIENT AGE: 63 years Comparison: None DOSE: 0.54 mCi technetium sulfur colloid in radiolabeled meal FINDINGS: The one half emptying time is normal at 70 minutes. Normal 60 +/- 30 minutes. 69 percent of the gastric contents had emptied at 69 minutes. Images submitted show no obvious reflux. IMPRESSION: Normal gastric emptying time
--- NOTE | 2018-06-30 10:42 | HMH.ITSHM ---
Current Home Medications as stated by this patient John Cam or customer account representative. []HCTZ LEVOTHYROXINE FENOFIBRATE NEXIUM
== END ==
PROVIDERS: PCP Family Medicine; Visit Provider Surgery
DX: K31.84 Gastroparesis (principal)
CPT/HCPCS: 78264; A9541

== ENCOUNTER → 2018-08-04 09:45 | Outpatient (POV) | payer MEDICARE, BC, SELFPAY | PROVIDERS: Visit Provider Nurse Practitioner Family | DX: Z00.00 Encounter for general adult medical examination without abnormal findings (principal) ==

== ENCOUNTER → 2018-09-15 12:37 | Outpatient (POV) | payer MEDICARE, BC, SELFPAY | PROVIDERS: PCP Family Medicine; Visit Provider Nurse Practitioner Family | DX: Z00.00 Encounter for general adult medical examination without abnormal findings (principal) ==

== ENCOUNTER → 2018-10-27 09:39 | Outpatient (CLI) | payer MEDICARE, BC, SELFPAY ==
--- NOTE | 2018-10-27 09:39 | MM_ITS ---
PROCEDURE: MM DIG SCREENING MAMM BI W/CAD CLINICAL INDICATION: SCREENING There is no personal or family history of breast cancer COMPARISON: [facility] DIG MAMM-SCREEN [facility]BY from 09/28/2015 [facility] DIG MAMM-SCREEN RUBY W/CAD from 10/01/2016 [facility] MM Dig screening mamm BI w/CAD from 10/04/2017 TECHNIQUE: Standard CC and MLO images were obtained. R2 CAD reviewed. FINDINGS: Scattered fibroglandular densities are seen in both breasts on a background of fatty breast parenchyma. There is no suspicious lesion in either breast and no suspicious microcalcifications. IMPRESSION: Fibrofatty parenchyma with no suspicious lesions seen BI-RAD Category: 1 Negative FOLLOW-UP: 1YR 1 Year Follow-up (A letter has been sent to the patient regarding results of the study.) Dictated by: Dr. Erasmo Vega MD 11/02/2018 15:[address] Erasmo Vega MD in [place] 11/02/2018 15:32
== END ==
PROVIDERS: PCP Family Medicine; Visit Provider Obstetrics & Gynecology
DX: Z12.31 Encounter for screening mammogram for malignant neoplasm of breast (principal)
CPT/HCPCS: 77067

== ENCOUNTER → 2018-12-02 10:20 | Outpatient (POV) | payer MEDICARE, BC, SELFPAY ==
[2018-12-02 10:37] VITALS: BP 155/75; PULSE 72; RESP 16; O2SAT 97; BMI 32.9
--- NOTE | 2018-12-02 12:46 | HMH.PMPROC ---
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 She is been doing extremely well with this however recently she had an increase in pain. She rates her pain a 10 out of 10. This was after a outing with the [employer] on a [employer] bus. Patient is in extreme discomfort. We will bolus her today to see if this is beneficial. We will give her a 15% bolus. After this bolus patient's pain came down to 7. We will increase her intrathecal infusion today. She denies side effects. Physical Exam General: Alert and oriented x3, no acute distress, pleasant and cooperative, [on room air] Lungs: Resps E/U, Symmetrical chest expansion, Eyes: PERRL Musculoskeletal: Flexion and extension of lumbar spine somewhat guarded secondary to pain, deep tendon reflexes normal, strength in upper and lower extremities [5/5], [abnormal gait noted] Neurological: speech clear, tank bottom assembler equal, no gross sensory deficits Procedure Details:: Informed consent was obtained and the risk and benefits of the procedure were explained to the patient. The patient was taken to the procedure room where noninvasive monitoring was placed including noninvasive blood pressure cuff and pulse oximeter. Patient's pump was interrogated and reprogrammed. The infusion rate was increased to 1 mg/day of morphine. The patient tolerated the procedure well. Plan and Disposition:: I will follow-up with her at her next intrathecal pain pump refill and reprogram she is been instructed to call the office if she has any issues prior to her next appointment. Dr. Nieto has reviewed this note and agrees with this plan of care. This note was dictated using voice recognition software and may contain errors or omissions
--- NOTE | 2018-12-02 12:49 | P.PCN_ITS ---
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 She is been doing extremely well with this however recently she had an increase in pain. She rates her pain a 10 out of 10. This was after a outing with the [employer] on a [employer] bus. Patient is in extreme discomfort. We will bolus her today to see if this is beneficial. We will give her a 15% bolus. After this bolus patient's pain came down to 7. We will increase her intrathecal infusion today. She denies side effects. Physical Exam General: Alert and oriented x3, no acute distress, pleasant and cooperative, [on room air] Lungs: Resps E/U, Symmetrical chest expansion, Eyes: PERRL Musculoskeletal: Flexion and extension of lumbar spine somewhat guarded secondary to pain, deep tendon reflexes normal, strength in upper and lower extremities [5/5], [abnormal gait noted] Neurological: speech clear, tour sales representative equal, no gross sensory deficits Procedure Details:: Informed consent was obtained and the risk and benefits of the procedure were explained to the patient. The patient was taken to the procedure room where noninvasive monitoring was placed including noninvasive blood pressure cuff and pulse oximeter. Patient's pump was interrogated and reprogrammed. The infusion rate was increased to 1 mg/day of morphine. The patient tolerated the procedure well. Plan and Disposition:: I will follow-up with her at her next intrathecal pain pump refill and reprogram she is been instructed to call the office if she has any issues prior to her next appointment. Dr. Nieto has reviewed this note and agrees with this plan of care. This note was dictated using voice recognition software and may contain errors or omissions
== END ==
PROVIDERS: PCP Family Medicine; Visit Provider Clinical Nurse Specialist Family Health
DX: M51.16 Intervertebral disc disorders with radiculopathy, lumbar region (principal)
CPT/HCPCS: 99212

== ENCOUNTER → 2019-01-02 14:07 | Outpatient (POV) | payer MEDICARE, BC, SELFPAY ==
[2019-01-02 14:52] VITALS: BP 180/58; PULSE 117; RESP 18; O2SAT 97; BMI 33.7
--- NOTE | 2019-01-02 15:04 | HMH.PMPROC ---
- Procedure Date: 01/02/19 Time: 15:04 Anesthesiologist:: Anders Nieto MD Complications:: None Pre-procedure Diagnosis:: Degenerative disc disease of lumbar spine with lumbar radiculopathy symptoms status post replacement of intrathecal pain pump system with post dural puncture headache Post-procedure Diagnosis:: Same Indications for Procedure:: Patient is a pleasant 63-year-old white female who we are treating for low back pain with lumbar radiculopathy symptoms. She recently had replacement of her intrathecal pain pump system. Her catheter was almost out. We did take out her catheter and pain pump system and exchange it for a new catheter. She has developed a post dural puncture headache subsequent to the surgery. She also is currently at 0.5 mg/day of intrathecal morphine. I have advised conservative treatment for her post dural puncture headache and we will plan on increasing her intrathecal morphine infusion to 0.75 mg/day. She has had no side effects and no signs of sedation. I am leery of doing an epidural blood patch because she is only 1 week out of surgery and I believe it may increase her risk of infection. Procedure Details:: Analysis and reprogram of intrathecal pain pump Informed consent was obtained and the risk and benefits of the procedure was explained to the patient. Patient was taken to the procedure room. The pump was interrogated. Intrathecal morphine pump was increased to 0.75 mg/day. Patient tolerated the procedure well with no complications. Plan and Disposition:: We will follow-up with her next week. We will reevaluate her symptoms at that time. Her pump can be increased further if needed to 1 mg/day. I will still advise conservative treatment for her post dural puncture headache including caffeine, fluids, rest and Excedrin Migraine.
== END ==
PROVIDERS: PCP Family Medicine; Visit Provider Anesthesiology
DX: M51.16 Intervertebral disc disorders with radiculopathy, lumbar region (principal); Z98.890 Other specified postprocedural states; Z45.1 Encounter for adjustment and management of infusion pump
CPT/HCPCS: 62368

== ENCOUNTER → 2019-01-08 08:56 | Outpatient (POV) | payer MEDICARE, BC, SELFPAY ==
[2019-01-08 09:27] VITALS: BP 142/59; PULSE 68; RESP 18; O2SAT 99; BMI 34.0
--- NOTE | 2019-01-08 09:43 | HMH.PMPROC ---
- Procedure Date: 01/08/19 Time: 09:43 Anesthesiologist:: Melissa Radford APRN Complications:: None Pre-procedure Diagnosis:: Right degenerative disc disease lumbar spine with lumbar radiculopathy symptoms, status post replacement intrathecal pain pump system Post-procedure Diagnosis:: Same Indications for Procedure:: Patient is a pleasant 63-year-old white female who presents today for follow-up after intrathecal catheter replacement. Patient reports that she was having increased pain and underwent a catheter dye study. Following the catheter dye study she did have her catheter replaced. She did subsequently ended up with a post dural puncture headache following the surgery. Since then, she is doing much better. She does continue to have some low back pain. She is currently managed with intrathecal pump of morphine at 0.75 mg/day. She denies any side effects to the medications. Her Jerry #[id number] has been reviewed and is appropriate. She would like an increase in her medication today. Patient does have sutures, for which she says there has been no drainage no fever no edema, no redness to the site. We will increase the patient's medication today and her intrathecal pump and we will also start her PTC device. Physical exam General: Alert and oriented x3, no acute distress, pleasant and cooperative, [on room air] Lungs: Respirations even and unlabored, symmetrical chest expansion Eyes: PERRL Musculoskeletal: Flexion and extension of lumbar spine somewhat guarded secondary to pain, deep tendon reflexes normal, strength in upper and lower extremities [5/5], [abnormal gait noted] Neurological: Speech clear, rail track maintainer equal, no gross sensory deficit Procedure Details:: Informed consent was obtained and the risk and benefits of the procedure were explained to the patient. Patient was taken to the procedure room where noninvasive monitoring was placed including noninvasive blood pressure cuff and pulse oximeter. Patient's pump was interrogated and was reprogrammed to morphine at 0.9 mg/day. Her PTC device was set up to deliver medication at 0.09 mg up to 4 times daily. The patient tolerated the procedure well with no complications. Plan and Disposition:: We will see the patient back in the clinic in 1 week to reassess her symptoms. We will also remove her sutures at that time. She has been instructed to contact the clinic if she has any concerns before her next appointment. Dr. Nieto has reviewed this note and agrees with this plan of care. This note was dictated using voice recognition software and make contain errors or omissions.
--- NOTE | 2019-01-08 09:46 | P.PCN_ITS ---
- Procedure Date: 01/08/19 Time: 09:43 Anesthesiologist:: Melissa Radford APRN Complications:: None Pre-procedure Diagnosis:: Right degenerative disc disease lumbar spine with lumbar radiculopathy symptoms, status post replacement intrathecal pain pump system Post-procedure Diagnosis:: Same Indications for Procedure:: Patient is a pleasant 63-year-old white female who presents today for follow-up after intrathecal catheter replacement. Patient reports that she was having increased pain and underwent a catheter dye study. Following the catheter dye study she did have her catheter replaced. She did subsequently ended up with a post dural puncture headache following the surgery. Since then, she is doing much better. She does continue to have some low back pain. She is currently managed with intrathecal pump of morphine at 0.75 mg/day. She denies any side effects to the medications. Her Jerry #[id number] has been reviewed and is appropriate. She would like an increase in her medication today. Patient does have sutures, for which she says there has been no drainage no fever no edema, no redness to the site. We will increase the patient's medication today and her intrathecal pump and we will also start her PTC device. Physical exam General: Alert and oriented x3, no acute distress, pleasant and cooperative, [on room air] Lungs: Respirations even and unlabored, symmetrical chest expansion Eyes: PERRL Musculoskeletal: Flexion and extension of lumbar spine somewhat guarded secondary to pain, deep tendon reflexes normal, strength in upper and lower extremities [5/5], [abnormal gait noted] Neurological: Speech clear, manager adult equal, no gross sensory deficit Procedure Details:: Informed consent was obtained and the risk and benefits of the procedure were explained to the patient. Patient was taken to the procedure room where noninvasive monitoring was placed including noninvasive blood pressure cuff and pulse oximeter. Patient's pump was interrogated and was reprogrammed to morphine at 0.9 mg/day. Her PTC device was set up to deliver medication at 0.09 mg up to 4 times daily. The patient tolerated the procedure well with no complications. Plan and Disposition:: We will see the patient back in the clinic in 1 week to reassess her symptoms. We will also remove her sutures at that time. She has been instructed to contact the clinic if she has any concerns before her next appointment. Dr. Nieto has reviewed this note and agrees with this plan of care. This note was dictated using voice recognition software and make contain errors or omissions.
== END ==
PROVIDERS: PCP Family Medicine; Visit Provider Clinical Nurse Specialist Family Health
DX: Z09 Encounter for follow-up examination after completed treatment for conditions other than malignant neoplasm (principal); M51.16 Intervertebral disc disorders with radiculopathy, lumbar region
CPT/HCPCS: 62368

== ENCOUNTER → 2019-01-13 08:30 | Outpatient (POV) | payer MEDICARE, BC, SELFPAY ==
--- NOTE | 2019-01-13 08:47 | HMH.PAINSOAP ---
[facility] Pain Management SOAP Note Subjective:: Patient is a pleasant 63-year-old white female who presents today for follow-up and to removal after intrathecal pain pump catheter replacement overall doing extremely well rating her pain a 1 out of 10. Patient has no side effects or medication she is currently on morphine 0.9 mg/day patient sutures removed the incision is well approximated with no sign symptoms of infection. ROS General: no recent weight change, no fever, no sleep disturbances Respiratory: no cough, no shortness of air, no recurring pulmonary infections Cardiovascular/Peripheral Vascular: No chest pain, No palpitations, no edema, no shortness of breath. Gastrointestinal: no new onset incontinence, normal bowel movements reported Genitourinary: no new onset incontinence Musculoskeletal: Back pain, leg pain Psychiatric: normal mood/ affect Neurological: [denies new onset weakness in extremities], [denies new onset balance issues] Objective:: Physical Exam General: Alert and oriented x3, no acute distress, pleasant and cooperative, [on room air] Lungs: Resps E/U, Symmetrical chest expansion, Eyes: PERRL Musculoskeletal: Flexion and extension of lumbar spine somewhat guarded secondary to pain, deep tendon reflexes normal, strength in upper and lower extremities [5/5], antalgic gait noted Neurological: speech clear, booking prizer equal, no gross sensory deficits Assessment:: Degenerative disc disease lumbar spine with lumbar radiculopathy status post replacement intrathecal pain pump system Plan:: I will see the patient back in 1 month reassess her symptoms at that time she is been instructed to call the office if she has any issues prior to her next appointment. Dr. Nieto has reviewed this note and agrees with this plan of care. This note was dictated using voice recognition software and may contain errors or omissions [facility] History I have reviewed the patient's past medical history: Yes Medical History: Reports:: Gastroesophageal Reflux Disease(GERD), Hyperlipidemia, Hypertension Denies:: Cancer, Diabetes Mellitus Type 1, Diabetes Mellitus Type 2, Internal Pacemaker, Lung Disease, MRSA, Seizures *Have you ever received a pneumonia vaccine?: Yes *Have you received a flu vaccine this season?: Yes Other Medical History: Reports: Arthritis, Blood Transfusion Reaction, Hypothyroidism Laterality Cases: Bilateral: Arthroscopy Knee, Tonsillectomy Other Surgeries: Yes: Cholecystectomy, Colonoscopy, EGD, Hysterectomy-Total, Thyroidectomy, Other. No: Pacemaker Amputation: No Fractures: No - *Social History Smoking Status: Never smoker Alcohol Intake: never Substance Use Type: denies use *Occupational Status:: other Housing: house Household Members: spouse *Travel in the last 8 weeks: None Family Hx:: Cancer, Diabetes
[2019-01-13 08:57] VITALS: BP 151/86; PULSE 78; RESP 18; O2SAT 99; BMI 33.7
== END ==
PROVIDERS: PCP Family Medicine; Visit Provider Clinical Nurse Specialist Family Health
DX: M51.16 Intervertebral disc disorders with radiculopathy, lumbar region (principal); Z97.8 Presence of other specified devices
CPT/HCPCS: 99212; 99213

== ENCOUNTER → 2019-01-19 09:37 | Outpatient (POV) | payer MEDICARE, BC, SELFPAY | PROVIDERS: Visit Provider Nurse Practitioner Family | DX: Z00.00 Encounter for general adult medical examination without abnormal findings (principal) ==

== ENCOUNTER → 2019-02-09 08:38 | Outpatient (POV) | payer MEDICARE, BC, SELFPAY ==
[2019-02-09 08:58] VITALS: BP 120/66; PULSE 71; RESP 18; O2SAT 99; BMI 24.1
--- NOTE | 2019-02-09 09:52 | HMH.PAINSOAP ---
[facility] Pain Management SOAP Note Subjective:: Patient is a pleasant 63-year-old white female who presents today for follow-up. Patient overall doing extremely well rating her pain a 0 out of 10. She is currently on a morphine dose of 0.9 mg/day. Patient does not need any changes today she denies any side effects to her intrathecal infusion. ROS General: no recent weight change, no fever, no sleep disturbances Respiratory: no cough, no shortness of air, no recurring pulmonary infections Cardiovascular/Peripheral Vascular: No chest pain, No palpitations, no edema, no shortness of breath. Gastrointestinal: no new onset incontinence, normal bowel movements reported Genitourinary: no new onset incontinence Musculoskeletal: Back pain, leg pain Psychiatric: normal mood/ affect Neurological: [denies new onset weakness in extremities], [denies new onset balance issues] Objective:: Physical Exam General: Alert and oriented x3, no acute distress, pleasant and cooperative, [on room air] Lungs: Resps E/U, Symmetrical chest expansion, Eyes: PERRL Musculoskeletal: Flexion and extension of lumbar spine somewhat guarded secondary to pain, deep tendon reflexes normal, strength in upper and lower extremities [5/5], slightly antalgic gait noted Neurological: speech clear, experimental rocket sled mechanic equal, no gross sensory deficits Assessment:: Degenerative disc disease lumbar spine with lumbar radiculopathy Plan:: We will see the patient back at her next intrathecal pain pump refill and reprogram she is been instructed to call the office if she has any issues prior to her next appointment. Dr. Nieto has reviewed this note and agrees with this plan of care. This note was dictated using voice recognition software and may contain errors or omissions [facility] History I have reviewed the patient's past medical history: Yes Medical History: Reports:: Gastroesophageal Reflux Disease(GERD), Hyperlipidemia, Hypertension Denies:: Cancer, Diabetes Mellitus Type 1, Diabetes Mellitus Type 2, Internal Pacemaker, Lung Disease, MRSA, Seizures *Have you ever received a pneumonia vaccine?: Yes *Have you received a flu vaccine this season?: Yes Other Medical History: Reports: Arthritis, Blood Transfusion Reaction, Hypothyroidism Laterality Cases: Bilateral: Arthroscopy Knee, Tonsillectomy Other Surgeries: Yes: Cholecystectomy, Colonoscopy, EGD, Hysterectomy-Total, Thyroidectomy, Other. No: Pacemaker Amputation: No Fractures: No - *Social History Smoking Status: Never smoker Alcohol Intake: never Substance Use Type: denies use *Occupational Status:: other Housing: house Household Members: spouse *Travel in the last 8 weeks: None Family Hx:: Cancer, Diabetes
== END ==
PROVIDERS: PCP Family Medicine; Visit Provider Clinical Nurse Specialist Family Health
DX: M51.16 Intervertebral disc disorders with radiculopathy, lumbar region (principal)
CPT/HCPCS: 99212

== ENCOUNTER → 2019-03-27 09:34 | Outpatient (CLI) | payer MEDICARE, BC, SELFPAY ==
[2019-03-27 12:33] LABS: Alanine Aminotransferase 32 U/L (12-78); Albumin Level 3.9 gm/dL (3.4-5.0); Albumin/Globulin Ratio 1.5 (1.1-1.8); Alkaline Phosphatase 45 U/L (46-116); Anion Gap 12.3 mEq/L (5-15); Aspartate Amino Transferase 30 U/L (15-37); Bilirubin,Total 0.8 mg/dL (0.2-1.0); Blood Urea Nitrogen 27 mg/dL (7-18); Calcium 9.6 mg/dL (8.5-10.1); Carbon Dioxide 32 mmol/L (21.0-32.0); Chloride 104 mmol/L (98-107); Chol/HDL Ratio 3.7 (1-3.5); Cholesterol 150 mg/dL (140-200); Creatinine,Serum 1.01 mg/dL (0.55-1.02); Estimated Glomerular Filt Rate 55 ml/min (>60); Free T4 (Free Thyroxine) 1.76 ng/dl (0.76-1.46); GFR (African American) 67 ML/MIN (>60); Globulin 2.6 gm/dl (1.3-3.2); Glucose 89 mg/dL (74-106); HDL Cholesterol 41 mg/dL (29-89); LDL Cholesterol 83 mg/dL (0-130); Potassium 4.3 mmoL/L (3.5-5.1); Sodium 144 mmol/L (136-145); Thyroid Stimulating Hormone 0.33 uIU/ml (0.358-3.740); Total Protein,Serum 6.5 gm/dL (6.4-8.2); Triglycerides 130 mg/dL (30-200); VLDL Cholesterol 26 mg/dL (0-40)
== END ==
PROVIDERS: Visit Provider Nurse Practitioner Family
DX: I10 Essential (primary) hypertension (principal); E03.8 Other specified hypothyroidism
CPT/HCPCS: 36415; 80053; 80061; 84439; 84443

== ENCOUNTER 2019-07-28 12:58 | Day surgery (SDC) | payer MEDICARE, BC, SELFPAY ==
[2019-07-28 13:31] VITALS: BP 155/68; PULSE 60; RESP 18; O2SAT 96; BMI 36.4
[2019-07-28 14:13] VITALS: BP 151/78; PULSE 68; RESP 18; TEMP 36.5; O2SAT 99
[2019-07-28 14:19] VITALS: BP 148/89; PULSE 65; RESP 18; O2SAT 98
[2019-07-28 14:28] VITALS: BP 155/68; PULSE 58; RESP 18; O2SAT 96
--- NOTE | 2019-07-28 15:32 | P.PCN_ITS ---
- Procedure Date: 07/28/19 Time: 15:32 Anesthesiologist:: Ivonne Guerrero APRN Complications:: None Pre-procedure Diagnosis:: Degenerative disc disease lumbar spine with lumbar radiculopathy and postlaminectomy syndrome Post-procedure Diagnosis:: Same Indications for Procedure:: She is a very pleasant 64-year-old white female who presents today for intrathecal pain pump refill and reprogram. Overall she is doing extremely well with her current infusion. Currently at morphine 0.9 mg/day. She denies side effects. She needs no changes. Patient's Jerry reviewed and appropriate urine drug screens have been appropriate. She rates her pain today as a 4 out of 10 Physical Exam General: Alert and oriented x3, no acute distress, pleasant and cooperative, [on room air] Lungs: Resps E/U, Symmetrical chest expansion, Eyes: PERRL Musculoskeletal: Flexion and extension of lumbar spine somewhat guarded secondary to pain, deep tendon reflexes normal, strength in upper and lower extremities [5/5], [abnormal gait noted] Neurological: speech clear, business services sales representative equal, no gross sensory deficits Procedure Details:: Informed consent was obtained and the risk and benefits of the procedure were explained to the patient. The patient was taken to the procedure room where noninvasive monitoring was placed including noninvasive blood pressure cuff and pulse oximeter. Patient's pump was interrogated. The area over the pump was cleansed with chlorhexidine as a cleansing solution. In sterile fashion the pump was accessed with a 22-gauge needle. Approximately 11 mL's were removed of the pump solution and discarded appropriately. The pump was then refilled with 20 mL's of morphine 15 mg/mL. The needle was withdrawn and a bandage was placed over the puncture site. The infusion rate was reprogrammed to continued at 0.9 mg/day. The patient tolerated the procedure well. Plan and Disposition:: The patient back at her next intrathecal pain pump refill and reprogram she has been instructed to call the office if she has any issues prior to her next appointment. Dr. Nieto has reviewed this note and agrees with this plan of care. This note was dictated using voice recognition software and may contain errors or omissions
== END 2019-07-28 14:31 | disposition home or self-care (01) ==
LOC: SC.PAINP 13:01
PROVIDERS: PCP Family Medicine; Visit Provider Clinical Nurse Specialist Family Health
DX: M51.16 Intervertebral disc disorders with radiculopathy, lumbar region (principal); M96.1 Postlaminectomy syndrome, not elsewhere classified; Z88.8 Allergy status to other drugs, medicaments and biological substances; K21.9 Gastro-esophageal reflux disease without esophagitis; I10 Essential (primary) hypertension; E78.5 Hyperlipidemia, unspecified; Z87.39 Personal history of other diseases of the musculoskeletal system and connective tissue; Z90.89 Acquired absence of other organs; Z79.899 Other long term (current) drug therapy
CPT/HCPCS: 95991

== ENCOUNTER → 2019-09-03 12:21 | Outpatient (CLI) | payer MEDICARE, BC, SELFPAY ==
--- NOTE | 2019-09-03 | XR_ITS ---
PROCEDURE: XR LUMBAR SPINE MIN 4V CLINICAL INDICATION: FALL IN BATHTUB..LOW BACK PAIN COMPARISON: SPLUMBWO MR lumbar spine wo con from 07/26/2017 FINDINGS: There is minimal anterolisthesis of L4 on of 4 mm with mild degenerative disc disease at L4-5 and L5-S1. Facet arthritic changes are present at L3-L4 and L5. There is an epidural pain pump present with the tip of the catheter at the T12-L1 level. There is metallic device along the posterior interspinous region at L4 and L5. There is degenerative disc disease in the lower thoracic spine with mild chronic wedging T12. Anterior osteophytes are present at T11-T12 and T12-L1. IMPRESSION: Degenerative and postsurgical changes as described above. No acute finding Dictated by: Lars Hairston MD 09/03/2019 14:23 Electronically signed by Lars Hairston MD in [place] 09/03/2019 14:23
--- NOTE | 2019-09-03 | XR_ITS ---
PROCEDURE: XR HIP LT 2-3V W/PELVIS CLINICAL INDICATION: FALL IN BATHTUB..LT HIP PAIN COMPARISON: HIP2L HIP-2 VIEWS-LT from 11/26/2013 BONE3 BONE DENSITOMETRY(HIP:LT SPINE from 09/28/2015 FINDINGS: No fracture or dislocation. No lytic or blastic change. There is normal mineralization. The joint spaces are well-preserved. No significant degenerative/arthritic changes. No erosive changes evident. Other findings:None. IMPRESSION: No acute findings. Dictated by: Lars Hairston MD 09/03/2019 14:26 Electronically signed by Lars Hairston MD in [facility] 09/03/2019 14:26
--- NOTE | 2019-09-03 | XR_ITS ---
PROCEDURE: XR RIBS LT MIN 3V W CXR1V CLINICAL INDICATION: FALL IN BATHTUB..RT RIB PAIN Posttraumatic pain COMPARISON: No exams were available for comparison FINDINGS: Frontal view of the chest shows a small hiatal hernia. There is a mild degree of motion artifact on the repeat detail images. No displaced fractures are evident. IMPRESSION: No displaced fracture. Consider CT with 3D reformats if pain persists Dictated by: Lars Hairston MD 09/03/2019 14:27 Electronically signed by Lars Hairston MD in [place] 09/03/2019 14:27
== END ==
PROVIDERS: PCP Nurse Practitioner Family; Visit Provider Nurse Practitioner Family
DX: M54.5 Low back pain (principal); R22.2 Localized swelling, mass and lump, trunk; R07.81 Pleurodynia; W18.2XXA Fall in (into) shower or empty bathtub, initial encounter
CPT/HCPCS: 71101; 72110; 73502

== ENCOUNTER → 2019-09-25 13:25 | Outpatient (CLI) | payer MEDICARE, BC, SELFPAY ==
--- NOTE | 2019-09-25 13:58 | US_ITS ---
PROCEDURE: US EXTREMITY RT LIMITED CLINICAL INDICATION: LUMP OF SKIN ON BACK COMPARISON: MR SPLUMBWO MR lumbar spine wo con from 07/26/2017 CR XR LUMBAR SPINE MIN 4V from 09/03/2019 FINDINGS: There is a complex cystic nodule in the subcutaneous tissues in the low back area corresponding to the palpable abnormality measuring 18 x 14 mm. This does contain some irregular appearing soft tissue component with irregular septations. There is some enhanced through transmission of sound superiorly with some shadowing posteriorly. There has been prior lumbar surgery IMPRESSION: Complex mostly cystic lesion with some internal solid components 18 x 14 mm in the subcutaneous tissues in the low back corresponding to the palpable abnormality. This is of questionable etiology. Resolving hematoma, seroma, or abscess is a consideration in this patient with surgical history. Please correlate with clinical findings. Dictated b Lars Hairston MD 09/25/2019 16:45 Lars Hairston MD in [place] 09/25/2019 16:45
== END ==
PROVIDERS: PCP Nurse Practitioner Family; Visit Provider Nurse Practitioner Family
DX: R22.2 Localized swelling, mass and lump, trunk (principal)
CPT/HCPCS: 76882

== ENCOUNTER → 2019-09-30 10:08 | Outpatient (CLI) | payer MEDICARE, BC, SELFPAY | PROVIDERS: PCP Family Medicine; Visit Provider Obstetrics & Gynecology | DX: Z12.31 Encounter for screening mammogram for malignant neoplasm of breast (principal) ==

== ENCOUNTER → 2019-10-29 12:30 | Outpatient (CLI) | payer MEDICARE, BC, SELFPAY ==
--- NOTE | 2019-10-29 12:42 | US_ITS ---
PROCEDURE: US FNA OTHER CLINICAL INDICATION: CYST ON BACK COMPARISON: US US EXTREMITY RT LIMITED from 09/25/2019 TECHNIQUE: Following obtaining informed consent, using aseptic technique and local anesthesia with buffered lidocaine, fine-needle aspiration was performed of the nodule of interest using sonographic guidance. Two passes were made into the nodule with a 25-gauge needle. Specimen was given to cytology. Less than 5 mL of fluid was aspirated. Specimen was sent for culture and sensitivity the nodule was nearly completely aspirated with only small residual area of decreased echogenicity at the lesion site. FINDINGS: The specimen was sent for culture and sensitivity and cytology. The culture and sensitivity results are not available at the of the reading. CYTOLOGY: Negative for malignant cells. Please see cytology report IMPRESSION: Uneventful ultrasound-guided FNA subcutaneous lesion. Cytology is negative for malignancy. Please see culture and sensitivity report which is not available at the time of reading. The patient tolerated the procedure well without evidence of immediate complications and left the ultrasound suite in stable condition. Dictated by: Lars Hairston MD 11/16/2019 08:48 Lars Hairston MD in [place] 11/16/2019 08:48
== END ==
PROVIDERS: PCP Family Medicine; Visit Provider Surgery
DX: R22.2 Localized swelling, mass and lump, trunk (principal)
CPT/HCPCS: 10005; 76942; 87070; 87205; 88173

== ENCOUNTER → 2019-10-30 10:15 | Outpatient (CLI) | payer MEDICARE, BC, SELFPAY ==
--- NOTE | 2019-10-30 10:15 | MM_ITS ---
PROCEDURE: MM DIG SCREENING MAMM BI W/CAD Referring Doctor: Courtney Justice Patient Age:64Y CLINICAL INDICATION: routine screening mammogram, no hormones. No new complaints. Noncontributory family history COMPARISON: MG DMSB DIG MAMM-SCREEN RUBY from 09/08/2013 MG DMSB DIG MAMM-SCREEN RUBY from 09/16/2014 MG DMSB DIG MAMM-SCREEN RUBY from 09/28/2015 MG DMSB DIG MAMM-SCREEN RUBY W/CAD from 10/01/2016 MG [facility] MM Dig screening mamm BI w/CAD from 10/04/2017 MG MM DIG SCREENING MAMM BI W/CAD from 10/27/2018 TECHNIQUE: Standard CC and MLO images were obtained. R2 CAD reviewed. Bilateral digital breast tomosynthesis included. Additional nipple profile CC views bilaterally as well as right RML nipple profile view FINDINGS: Minimal residual fibroglandular elements but similar architecture to previous studies. No new dominant or suspicious mass: No suspicious calcifications. Left breast. No new areas of significant concern. Stable patterns bilateral. Scattered small areas of minimal focal density on CC view both at the medial and lateral breast appear stable since studies from 2016 and can be followed. Right breast: No new findings of concern. Stable pattern. Minor subtle areas nodularity lateral anterior breast on CC view unchanged since prior studies Bilateral follow-up 1 year recommended IMPRESSION: Stable bilateral mammogram with no new areas of significant concern . Bilateral follow-up 1 year recommended BI-RAD Category: 2 Benign Finding(s) FOLLOW-UP: 1YR 1 Year Follow-up (A letter has been sent to the patient regarding results of the study.) Dictated by: César Cordova MD 10/31/2019 17:21 César Cordova MD in [place] 10/31/2019 17:21
== END ==
PROVIDERS: PCP Family Medicine; Visit Provider Obstetrics & Gynecology
DX: Z12.31 Encounter for screening mammogram for malignant neoplasm of breast (principal)
CPT/HCPCS: 77063; 77067

== ENCOUNTER 2019-11-30 13:11 | Day surgery (SDC) | payer MEDICARE, BC, SELFPAY ==
[2019-11-30 13:18] VITALS: BP 187/71; PULSE 64; RESP 18; TEMP 36.7; O2SAT 95; BMI 35.9
--- NOTE | 2019-11-30 13:45 | HMH.PMPROC ---
- Procedure Date: 11/30/19 Time: 13:45 Anesthesiologist:: Ivonne Guerrero APRN Complications:: None Pre-procedure Diagnosis:: Degenerative disc disease lumbar spine lumbar radiculopathy and postlaminectomy syndrome Post-procedure Diagnosis:: Same Indications for Procedure:: Patient is a very pleasant 64-year-old white female who presents today for intrathecal pain pump refill and reprogram. She is overall doing well he well with her current infusion of morphine at 0.9 mg/day. She denies any side effects. Patient's Jerry #[id number] reviewed and appropriate. Drug screens have been appropriate. Patient needs no changes she rates her pain today a 0 out of 10. Physical Exam General: Alert and oriented x3, no acute distress, pleasant and cooperative, [on room air] Lungs: Resps E/U, Symmetrical chest expansion, Eyes: PERRL Musculoskeletal: Flexion and extension of lumbar spine somewhat guarded secondary to pain, deep tendon reflexes normal, strength in upper and lower extremities [5/5], antalgic gait noted Neurological: speech clear, sap mobility architect equal, no gross sensory deficits Procedure Details:: Informed consent was obtained and the risk and benefits of the procedure were explained to the patient. The patient was taken to the procedure room where noninvasive monitoring was placed including noninvasive blood pressure cuff and pulse oximeter. Patient's pump was interrogated. The area over the pump was cleansed with chlorhexidine as a cleansing solution. In sterile fashion the pump was accessed with a 22-gauge needle. Approximately 12 mL's were removed of the pump solution and discarded appropriately. The pump was then refilled with 20 mL's of morphine 15 mg/mL. The needle was withdrawn and a bandage was placed over the puncture site. The infusion rate was reprogrammed to continued at 0.9 mg/day. The patient tolerated the procedure well. Plan and Disposition:: I will see the patient back at her next intrathecal pain pump refill and reprogram she has been instructed to call the office if she has any issues prior to her next appointment. Dr. Nieto has reviewed this note and agrees with this plan of care. This note was dictated using voice recognition software and may contain errors or omissions
[2019-11-30 13:47] VITALS: BP 175/87; PULSE 65; RESP 18; O2SAT 98
[2019-11-30 13:49] VITALS: BP 165/79; PULSE 70; RESP 18; O2SAT 98
[2019-11-30 14:03] VITALS: BP 177/70; PULSE 56; RESP 18; O2SAT 98
== END 2019-11-30 14:05 | disposition home or self-care (01) ==
LOC: SC.PAINP 13:12
PROVIDERS: PCP Family Medicine; Visit Provider Clinical Nurse Specialist Family Health
DX: M51.16 Intervertebral disc disorders with radiculopathy, lumbar region (principal); M96.1 Postlaminectomy syndrome, not elsewhere classified; I10 Essential (primary) hypertension; E78.5 Hyperlipidemia, unspecified; K21.9 Gastro-esophageal reflux disease without esophagitis; Z87.39 Personal history of other diseases of the musculoskeletal system and connective tissue; Z90.89 Acquired absence of other organs
CPT/HCPCS: 95991

== ENCOUNTER 2020-03-14 10:55 | Day surgery (SDC) | payer MEDICARE, BC, SELFPAY ==
[2020-03-14 11:00] VITALS: BP 175/71; PULSE 64; RESP 18; TEMP 36.1; O2SAT 96; BMI 36.1
[2020-03-14 11:50] VITALS: BP 182/91; PULSE 66; RESP 20; O2SAT 95
[2020-03-14 11:52] VITALS: BP 161/79; PULSE 70; RESP 20; O2SAT 96
--- NOTE | 2020-03-14 11:56 | P.PCN_ITS ---
- Procedure Date: 03/14/20 Time: 11:56 Anesthesiologist:: Ivonne Guerrero APRN Complications:: None Pre-procedure Diagnosis:: Degenerative disc disease lumbar spine lumbar radiculopathy and postlaminectomy syndrome Post-procedure Diagnosis:: Same Indications for Procedure:: Patient is pleasant 65-year-old white female who presents today for intrathecal pain pump refill and reprogram overall doing well however her pain is much higher than typical she rates a 9 out of 10. She denies side effects from medication. [facility] #[id number] reviewed and appropriate. Patient is currently on a morphine infusion of 0.9 mg/day however at 1.25 mg infusion with her boluses. Patient states that her boluses are not very helpful at this time. We will increase her overall dose. Procedure Details:: Informed consent was obtained and the risk and benefits of the procedure were explained to the patient. The patient was taken to the procedure room where noninvasive monitoring was placed including noninvasive blood pressure cuff and pulse oximeter. Patient's pump was interrogated. The area over the pump was cleansed with chlorhexidine as a cleansing solution. In sterile fashion the pump was accessed with a 22-gauge needle. Approximately 13 mL's were removed of the pump solution and discarded appropriately. The pump was then refilled with 20 mL's of morphine 15 mg/mL. The needle was withdrawn and a bandage was placed over the puncture site. The infusion rate was reprogrammed to increase to 1.25 mg/day. The patient tolerated the procedure well. Plan and Disposition:: We will follow-up with the patient and her next intrathecal pain pump refill and reprogram she has been instructed to call the office if she has any issues prior to her next appointment. Dr. Nieto has reviewed this note and agrees with this plan of care. This note was dictated using voice recognition software and may contain errors or omissions
[2020-03-14 12:22] VITALS: BP 154/85; PULSE 68; RESP 18; TEMP 36.1; O2SAT 96
== END 2020-03-14 12:00 | disposition home or self-care (01) ==
LOC: SC.PAINP 10:56
PROVIDERS: PCP Family Medicine; Visit Provider Clinical Nurse Specialist Family Health
DX: M51.16 Intervertebral disc disorders with radiculopathy, lumbar region (principal); M96.1 Postlaminectomy syndrome, not elsewhere classified; Z88.8 Allergy status to other drugs, medicaments and biological substances; Z79.899 Other long term (current) drug therapy
CPT/HCPCS: 62370

== ENCOUNTER → 2020-03-28 09:04 | Outpatient (POV) | payer MEDICARE, BC, SELFPAY ==
--- NOTE | 2020-03-28 09:19 | HMH.PMPROC ---
- Procedure Date: 03/28/20 Time: 09:19 Anesthesiologist:: Ivonne Guerrero APRN Complications:: None Pre-procedure Diagnosis:: Degenerative disc disease lumbar spine lumbar radiculopathy and postlaminectomy syndrome Post-procedure Diagnosis:: Same Indications for Procedure:: Patient is a pleasant 65-year-old white female who presents today for intrathecal pain pump program. Patient rates her pain today an 8 out of 10 which is unusual for her. Patient is had her catheter repositioned in the past due to it falling out of the intrathecal space. Patient states that this is what it feels like at this time. She was given a 0.2 mg bolus with no relief. I will increase her to 1.75 mg/day. If she does not have relief by we will set her up for catheter dye study. She denies any side effects to her medication. [facility] #[id number] reviewed and appropriate. Procedure Details:: Informed consent was obtained and the risk and benefits of the procedure were explained to the patient. The patient was taken to the procedure room where noninvasive monitoring was placed including noninvasive blood pressure cuff and pulse oximeter. Patient's pump was interrogated and reprogrammed. The infusion rate was increased to 1.75 mg/day morphine. The patient tolerated the procedure well. Plan and Disposition:: Patient is to call our office on if she is not having any relief. We will set her up for catheter dye study. If her catheter is in place we may discuss switching to Dilaudid or adding bupivacaine to her current morphine infusion. She has been instructed to call the office if she has any issues prior to her next appointment. Dr. Nieto has reviewed this note and agrees with this plan of care. This note was dictated using voice recognition software and may contain errors or omissions
[2020-03-28 10:22] VITALS: BP 140/62; PULSE 58; RESP 18; O2SAT 99; BMI 35.7
== END ==
PROVIDERS: PCP Family Medicine; Visit Provider Clinical Nurse Specialist Family Health
DX: M51.16 Intervertebral disc disorders with radiculopathy, lumbar region (principal); M96.1 Postlaminectomy syndrome, not elsewhere classified; Z45.1 Encounter for adjustment and management of infusion pump
CPT/HCPCS: 62368

== ENCOUNTER → 2020-04-18 09:43 | Outpatient (POV) | payer MEDICARE, BC, SELFPAY ==
--- NOTE | 2020-04-18 10:07 | XR_ITS ---
PROCEDURE: XR MULTIPLE SPINE 4-5V CLINICAL INDICATION: BACK PAIN COMPARISON: No exams were available for comparison FINDINGS: Thoracic spine: AP and lateral views of the thoracic spine show normal alignment. No fracture or dislocation. There is degenerative disc disease at T11-T12 and T12-L1. 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 Lumbar spine: AP and lateral views of the lumbar spine show normal alignment. No acute fracture or dislocation there is mild anterolisthesis of L4 on L5 of 5 mm with degenerative disc disease present at L4-5. Mild facet arthritic changes are present at L4-5 and L5-S1. There is a pain pump present with the superior aspect of the catheter at the T12-L1 level. A metallic implantable device is present posteriorly at the L5 level. IMPRESSION: 1. Degenerative and postsurgical changes as described above. 2. No acute finding. Dictated by: Lars Hairston MD 04/18/2020 10:43 Lars Hairston MD in [place] 04/18/2020 10:43
[2020-04-18 10:47] VITALS: BP 142/74; PULSE 85; RESP 18; O2SAT 98; BMI 22.4
--- NOTE | 2020-04-18 11:20 | HMH.PMPROC ---
- Procedure Date: 04/18/20 Time: 11:21 Anesthesiologist:: Ivonne Guerrero APRN Complications:: None Pre-procedure Diagnosis:: Degenerative disc disease lumbar spine lumbar radiculopathy and postlaminectomy syndrome Post-procedure Diagnosis:: Same Indications for Procedure:: Pleasant 65-year-old white female who presents today for intrathecal pain pump reprogram. She rates her pain a 10 out of 10. Patient is visibly uncomfortable. Patient intrathecal pain pump has not been giving her any relief she was sent for stat x-rays catheter appears to be in correct position. Patient was given a bolus with no real relief. We discussed getting an updated MRI along with changing her medication to Dilaudid. She is agreeable. We also discussed adding gabapentin 300 mg and Zofran for her nausea. Procedure Details:: Informed consent was obtained and the risk and benefits of the procedure were explained to the patient. The patient was taken to the procedure room where noninvasive monitoring was placed including noninvasive blood pressure cuff and pulse oximeter. Patient's pump was interrogated and reprogrammed. The infusion rate was increased to 2.25 mg/day. The patient tolerated the procedure well. Plan and Disposition:: The patient for a lumbar MRI we will also start her on Zofran 4 mg up to 3 times a day as needed for nausea we will also start on gabapentin 300 mg 1 p.o. 3 times daily. We will also move forward with Dilaudid 1 mg/mL and start her at 0.1 mg/day. She has been instructed to call the office if she has any issues prior to her next appointment. Dr. Nieto has reviewed this note and agrees with this plan of care. This note was dictated using voice recognition software and may contain errors or omissions
== END ==
PROVIDERS: PCP Family Medicine; Visit Provider Clinical Nurse Specialist Family Health
DX: M51.16 Intervertebral disc disorders with radiculopathy, lumbar region (principal); M96.1 Postlaminectomy syndrome, not elsewhere classified
CPT/HCPCS: 62368; 72083

== ENCOUNTER 2020-04-21 13:37 | Day surgery (SDC) | payer MEDICARE, BC, SELFPAY ==
[2020-04-21 13:50] VITALS: BP 147/69; PULSE 72; RESP 20; TEMP 36.1; O2SAT 93; BMI 35.9
[2020-04-21 13:55] VITALS: BP 147/69; PULSE 72; RESP 20; O2SAT 93
[2020-04-21 13:59] VITALS: BP 146/69; PULSE 73; RESP 20; O2SAT 94
[2020-04-21 14:15] VITALS: BP 149/74; PULSE 72; RESP 20; O2SAT 94
--- NOTE | 2020-04-21 14:37 | MR_ITS ---
PROCEDURE: MR LUMBAR SPINE WO CON CLINICAL INDICATION: LOW BACK PAIN Bilateral leg pain, numbness, and tingling [id number]. No injury. COMPARISON: MR SPLUMBWO MR lumbar spine wo con from 07/26/2017 TECHNIQUE: Standard multiplanar multiecho sequences are performed without contrast. 3-D MIP and myelographic images are also rendered and reviewed FINDINGS: There is normal alignment. The spinal cord ends at the L1-L2 level. Artifact somewhat obscures the right paraspinal region at from L2-S1 T11-T12: Degenerative disc disease. Mild kyphosis at T11 T12 and T12-L1. T12-L1: Degenerative disc disease. L1-L2: Unremarkable. L2-L3: Unremarkable. L3-L4: Unremarkable. L4-5: 4 mm anterolisthesis of L4 with mild bulging disc at L4-5 a mild facet hypertrophic change with mild bilateral lateral recess narrowing. Artifact is present posteriorly at this level. L5 S1: Minimal left paracentral disc protrusion. Facet hypertrophic changes are present. IMPRESSION: 1. Artifact somewhat obscures fine detail in the right paraspinal region from L2-S1. 2. Lumbar spondylosis. Please see above for detailed description at each level. 3. No extruded herniated disc or bony canal stenosis. Dictated by: Lars Hairston MD 04/23/2020 14:23 Lars Hairston MD in [place] 04/23/2020 14:23
[2020-04-21 15:59] VITALS: BP 151/73; PULSE 68; RESP 20; O2SAT 93
[2020-04-21 16:00] VITALS: BP 151/73; PULSE 70; RESP 20; O2SAT 94
--- NOTE | 2020-04-21 16:10 | PC.NURSE ---
1400-pt ambulatory to MRI suite for scheduled lumbar MRI
--- NOTE | 2020-04-21 16:11 | PC.NURSE ---
1555-pt returned to office from MRI suite
--- NOTE | 2020-04-21 16:22 | HMH.PMPROC ---
- Procedure Date: 04/21/20 Time: 16:22 Anesthesiologist:: Melissa Radford APRN Complications:: None Pre-procedure Diagnosis:: Degenerative disc disease lumbar spine with lumbar radiculopathy symptoms and postlaminectomy syndrome lumbar spine Post-procedure Diagnosis:: Same Indications for Procedure:: Patient is a 65-year-old white female who presents today for intrathecal pain pump refill and reprogram. She has been treated for chronic low back pain with lumbar radiculopathy symptoms. Unfortunately, the patient was not getting any relief with her intrathecal therapy of morphine. As result, patient was sent for x-rays to assess her catheter which appeared to be in the correct position. She was given a bolus with no relief. She was scheduled for an MRI. Patient did go to MRI today. Her intrathecal pump was emptied prior to the MRI. She is here now to have her intrathecal pump refilled. We will change her medication from morphine to Dilaudid. We will start her Dilaudid at 0.1 mg/day. Physical exam General: Alert and oriented x3, no acute distress, pleasant and cooperative, [on room air] Lungs: Respirations even and unlabored, symmetrical chest expansion Eyes: PERRL Musculoskeletal: Flexion and extension of lumbar spine somewhat guarded secondary to pain, deep tendon reflexes normal, strength in upper and lower extremities [5/5], [abnormal gait noted] Neurological: Speech clear, computerized table cutter equal, no gross sensory deficit Procedure Details:: Informed consent was obtained and the risk and benefits of the procedure were explained to the patient. The patient was taken to the procedure room where noninvasive monitoring was placed including noninvasive blood pressure cuff and pulse oximeter. Patient's pump was interrogated. The area over the pump was cleansed with chlorhexidine as a cleansing solution. In sterile fashion the pump was accessed with a 22-gauge needle. Approximately 15 mL mls of the pump solution was removed and discarded appropriately. The pump was then refilled with 20 mL's of Dilaudid 1 mg/mL. The needle was withdrawn and a bandage was placed over the puncture site. The infusion rate was reprogrammed at Dilaudid at 0.1 mg/day. The patient tolerated well with no complication. Plan and Disposition:: We will see the patient back in the clinic on Saturday to reassess her symptoms. She will have a bridge bolus and has been informed to not use her PTC device until she is in the clinic on Saturday. We will discuss her MRI at that time and reassess her symptoms. She has been instructed to call the clinic she has not had any concerns for next ointment. The patient and I specifically discussed risk factors for COVID19. These risks include, but are not limited to age greater than 60, heart or lung disease, diabetes, immunosuppression, and travel. We also discussed NSAIDs may worsen COVID19 infection or symptoms. Patient should not use NSAIDs to treat COVID19 signs or symptoms. Patient was also informed that any type of corticosteroid of any form (oral or injection) will decrease the patient's immune system response and may increase the likelihood of COVID19 infection [address] symptoms[address] Nieto has reviewed this note and agrees with this plan of care. This note was dictated using voice recognition software and make contain errors or omissions.
== END 2020-04-21 16:15 | disposition home or self-care (01) ==
LOC: SC.PAINP 04-22 10:23
PROVIDERS: PCP Family Medicine; Visit Provider Clinical Nurse Specialist Family Health
DX: M51.16 Intervertebral disc disorders with radiculopathy, lumbar region (principal); M96.1 Postlaminectomy syndrome, not elsewhere classified; Z45.1 Encounter for adjustment and management of infusion pump; I10 Essential (primary) hypertension; E78.5 Hyperlipidemia, unspecified; K21.9 Gastro-esophageal reflux disease without esophagitis; M19.90 Unspecified osteoarthritis, unspecified site; Z88.2 Allergy status to sulfonamides; Z88.1 Allergy status to other antibiotic agents; Z79.899 Other long term (current) drug therapy; E03.9 Hypothyroidism, unspecified
CPT/HCPCS: 62370; 72148; 76376

== ENCOUNTER → 2020-04-25 08:40 | Outpatient (POV) | payer MEDICARE, BC, SELFPAY ==
[2020-04-25 09:00] VITALS: BP 135/60; PULSE 65; RESP 18; TEMP 36.5; O2SAT 96; BMI 35.1
--- NOTE | 2020-04-25 09:03 | HMH.PMPROC ---
- Procedure Date: 04/25/20 Time: 09:03 Anesthesiologist:: Ivonne Guerrero APRN Complications:: None Pre-procedure Diagnosis:: Degenerative disc disease lumbar spine lumbar radiculopathy and back pain Post-procedure Diagnosis:: Same Indications for Procedure:: Patient is a pleasant 65-year-old white female who presents today for intrathecal pain pump adjustment. Patient was having increased pain. She was switched to Dilaudid 0.1 mg/day. She rates her pain a 5 out of 10 and is doing much better. She was unable to tolerate gabapentin. She has stopped this. Patient does have an MRI that shows no significant changes from her last one. We will give her a slight increase in her daily dose and set up her PTC today. Procedure Details:: Informed consent was obtained and the risk and benefits of the procedure were explained to the patient. The patient was taken to the procedure room where noninvasive monitoring was placed including noninvasive blood pressure cuff and pulse oximeter. Patient's pump was interrogated and reprogrammed. The infusion rate was increased to 0.125 mg of Dilaudid a day and her PTC was set up at 0.01 mg every 6 hours as needed. The patient tolerated the procedure well. Plan and Disposition:: I will see the patient back at her next intrathecal pain pump refill and reprogram she has been instructed to call the office if she has any issues prior to her next appointment. Dr. Nieto has reviewed this note and agrees with this plan of care. This note was dictated using voice recognition software and may contain errors or omissions
== END ==
PROVIDERS: PCP Family Medicine; Visit Provider Clinical Nurse Specialist Family Health
DX: M51.16 Intervertebral disc disorders with radiculopathy, lumbar region (principal); Z45.1 Encounter for adjustment and management of infusion pump
CPT/HCPCS: 62368

== ENCOUNTER 2020-07-29 10:07 | Day surgery (SDC) | payer MEDICARE, BC, SELFPAY ==
[2020-07-29 10:23] VITALS: BP 153/67; PULSE 61; RESP 18; TEMP 36.6; O2SAT 98; BMI 37.3
[2020-07-29 10:46] VITALS: BP 134/63; PULSE 89; RESP 18; O2SAT 96
[2020-07-29 10:49] VITALS: BP 125/56; PULSE 60; RESP 18; O2SAT 97
[2020-07-29 11:10] VITALS: BP 130/44; PULSE 58; RESP 20; O2SAT 98
--- NOTE | 2020-07-29 11:59 | HMH.PMPROC ---
- Procedure Date: 07/29/20 Time: 11:59 Anesthesiologist:: Beryl Savage MD Complications:: None Pre-procedure Diagnosis:: lumbar radiculopathy, DDD of lumbar spine Post-procedure Diagnosis:: Same Indications for Procedure:: Patient is a very pleasant 65-year-old white male who presents today for intrathecal pain pump refill and reprogram. She is currently on Dilaudid 1 mg/mL on a periodic flow setting of 0.01 mg boluses 4 times a day, with a total maximum daily dose of 0.164 mg/day. For today is for her to undergo an intrathecal pain pump refill and reprogram with no changes in dose or concentration. Procedure Details:: Informed consent was obtained and the risks and benefits of the procedure was explained to the patient. The patient was taken to the procedure room. The pump was interrogated. The area over the pump was prepped using ChloraPrep. The pump was accessed with a 22-gauge needle. Approximately 7 mL's of the intrathecal solution was withdrawn and discarded. The pump was then refilled with 20 mL's of intrathecal [Dilaudid 1 mg/mL]. The pump was interrogated and the infusion was [unchanged]. The patient tolerated the procedure well with no complications. Plan and Disposition:: Follow-up with the patient at or before the patient's next pump refill which is on November 09, 2020. Reevaluate her pain symptoms at that time and make adjustments as necessary.
== END 2020-07-29 11:10 | disposition home or self-care (01) ==
PROVIDERS: PCP Family Medicine; Visit Provider Anesthesiology Pain Medicine
DX: M51.16 Intervertebral disc disorders with radiculopathy, lumbar region (principal); Z45.1 Encounter for adjustment and management of infusion pump
CPT/HCPCS: 95991

== ENCOUNTER 2020-10-31 13:26 | Day surgery (SDC) | payer MEDICARE, BC, SELFPAY ==
[2020-10-31 13:50] VITALS: BP 145/97; PULSE 55; RESP 18; TEMP 36.3; O2SAT 94; BMI 39.7
[2020-10-31 14:21] VITALS: BP 147/72; PULSE 58; RESP 18; O2SAT 97
[2020-10-31 14:23] VITALS: BP 147/72; PULSE 55; RESP 18; O2SAT 99
--- NOTE | 2020-10-31 14:25 | HMH.PMPROC ---
- Procedure Date: 10/31/20 Time: 14:26 Anesthesiologist:: Melissa Radford APRN Complications:: None Pre-procedure Diagnosis:: Degenerative disc disease lumbar spine with lumbar radiculopathy symptoms Post-procedure Diagnosis:: Same Indications for Procedure:: Patient is a pleasant 65-year-old white male who presents today for intrathecal pain pump refill and reprogram. She has been treated for degenerative disc disease lumbar spine with lumbar radiculopathy symptoms. She is currently on a dose of Dilaudid at 0.164 mg/day. She denies any side effects. She is doing well with her intrathecal therapy. Her pain is a 2 out of 10. We will continue at her current dose. Jerry [id number] has been reviewed and is appropriate. Drug screen is appropriate. Physical exam General: Alert and oriented x3, no acute distress, pleasant and cooperative, [on room air] Lungs: Respirations even and unlabored, symmetrical chest expansion Eyes: PERRL Musculoskeletal: Flexion and extension of lumbar [spine] somewhat guarded secondary to pain, strength in upper and lower extremities [5/5], [antalgic gait noted] Neurological: Speech clear, [chemist helper equal], no gross sensory deficit Procedure Details:: Informed consent was obtained and the risk and benefits of the procedure were explained to the patient. The patient was taken to the procedure room where noninvasive monitoring was placed including noninvasive blood pressure cuff and pulse oximeter. Patient's pump was interrogated. The area over the pump was cleansed with chlorhexidine as a cleansing solution. In sterile fashion the pump was accessed with a 22-gauge needle. Approximately 8 mls of the pump solution was removed and discarded appropriately. The pump was then refilled with 20 mL's of Dilaudid 1 mg per mill. The needle was withdrawn and a bandage was placed over the puncture site. The infusion rate was reprogrammed at continued at Dilaudid 0.164 mg/day. The patient tolerated well with no complication. Plan and Disposition:: Patient has been instructed to contact the clinic with any concerns before the next appointment. Dr. Nieto has reviewed this note and agrees with this plan of care. This note was dictated using voice recognition software and make contain errors or omissions.
[2020-10-31 14:33] VITALS: BP 114/62; PULSE 54; RESP 18; O2SAT 97
== END 2020-10-31 14:34 | disposition home or self-care (01) ==
LOC: SC.PAINP 13:27
PROVIDERS: PCP Family Medicine; Visit Provider Clinical Nurse Specialist Family Health
DX: M51.16 Intervertebral disc disorders with radiculopathy, lumbar region (principal); E78.5 Hyperlipidemia, unspecified; I10 Essential (primary) hypertension; K21.9 Gastro-esophageal reflux disease without esophagitis; M19.90 Unspecified osteoarthritis, unspecified site; E03.9 Hypothyroidism, unspecified; Z79.899 Other long term (current) drug therapy
CPT/HCPCS: 80305; 95991

== ENCOUNTER → 2020-10-31 14:34 | Outpatient (CLI) | payer MEDICARE, BC, SELFPAY ==
[2020-10-31 17:44] LABS: Benzodiazepines Screen,Urine Negative ng/ml (<200)
[2020-10-31 17:45] LABS: Amphetamine/Metha Screen,Urine Negative ng/ml (<1000); Barbiturates Screen,Urine Negative ng/ml (<200)
[2020-10-31 17:46] LABS: Cannabinoid Screen,Urine Negative ng/ml (<50); Cocaine Screen,Urine Negative ng/ml (<300)
[2020-10-31 17:47] LABS: Methadone Screen,Urine Negative ng/ml (<300)
[2020-10-31 17:48] LABS: Opiate Screen,Urine Negative ng/ml (<300); Phencyclidine Screen,Urine Negative ng/ml (<25)
== END ==
PROVIDERS: Visit Provider Clinical Nurse Specialist Family Health
DX: Z79.891 Long term (current) use of opiate analgesic (principal)
CPT/HCPCS: 80305

== ENCOUNTER → 2020-11-17 14:46 | Outpatient (CLI) | payer MEDICARE, BC, SELFPAY ==
--- NOTE | 2020-11-17 14:46 | MM_ITS ---
PROCEDURE INFORMATION: Exam: MG Bilateral Screening 3D Mammography Exam date and time: 11/17/2020 2:46 PM Age: 65 years old Clinical indication: Encounter for screening mammogram for malignant neoplasm of breast TECHNIQUE: Imaging protocol: Bilateral screening tomosynthesis and 2D mammography including computer-aided detection (CAD) when performed. COMPARISON: 1. MG MM DIG SCREENING MAMM BI W/CAD 10/30/2019 10:41 AM 2. MG MM DIG SCREENING MAMM BI W/CAD 10/27/2018 10:07 AM FINDINGS: MAMMOGRAPHY: Breast composition: The breast tissue is composed of scattered areas of fibroglandular density. Mass: None. Architectural distortion: None. Calcifications: No suspicious calcifications. Asymmetric density: None. Skin thickening: None. Axillary adenopathy: None. IMPRESSION: No mammographic evidence of malignancy. Annual screening is recommended unless otherwise clinically indicated. ASSESSMENT: BI-RADS Category 1: Negative
== END ==
PROVIDERS: PCP Family Medicine; Visit Provider Obstetrics & Gynecology
DX: Z12.31 Encounter for screening mammogram for malignant neoplasm of breast (principal)
CPT/HCPCS: 77063; 77067

== ENCOUNTER 2021-01-30 13:05 | Day surgery (SDC) | payer MEDICARE, BC, SELFPAY ==
[2021-01-30 13:11] VITALS: BP 150/65; PULSE 55; RESP 18; TEMP 36.3; O2SAT 98; BMI 38.1
[2021-01-30 13:28] VITALS: BP 141/70; PULSE 82; RESP 18; O2SAT 99
[2021-01-30 13:30] VITALS: BP 141/70; PULSE 68; RESP 18; O2SAT 95
[2021-01-30 13:39] VITALS: BP 133/66; PULSE 58; RESP 20; O2SAT 97
--- NOTE | 2021-01-30 13:48 | HMH.PMPROC ---
- Procedure Date: 01/30/21 Time: 01:40 Anesthesiologist:: Melissa Radford APRN Complications:: None Pre-procedure Diagnosis:: Degenerative disc disease of the lumbar spine with lumbar radiculopathy symptoms Post-procedure Diagnosis:: Same Indications for Procedure:: Patient is a pleasant 65-year-old female who presents today for intrathecal pain pump [refill] [and reprogram]. The patient is being treated for degenerative disc disease of the lumbar spine with lumbar radiculopathy symptoms. She is currently being managed with Dilaudid 1 mg/mL at a rate of 0.125 mg/day with a PPC dose of 0.04 mg every 6 hours. Patient denies any side effects from this medication. Patient denies any change to location type of pain. Patient rates pain a 0 out of 10. Drug screen is appropriate. Jerry [ ] has been reviewed and is appropriate. Physical exam General: Alert and oriented x3, no acute distress, pleasant and cooperative, [on room air] Lungs: Respirations even and unlabored, symmetrical chest expansion Eyes: PERRL Musculoskeletal: Flexion and extension of lumbar [spine] somewhat guarded secondary to pain, [antalgic gait noted] Neurological: Speech clear, no gross sensory deficit Procedure Details:: Informed consent was obtained and the risk and benefits of the procedure were explained to the patient. The patient was taken to the procedure room where noninvasive monitoring was placed including noninvasive blood pressure cuff and pulse oximeter. Patient's pump was interrogated. The area over the pump was cleansed with chlorhexidine as a cleansing solution. In sterile fashion the pump was accessed with a 22-gauge needle. Approximately 8.5 mls of the pump solution was removed and discarded appropriately. The pump was then refilled with 20 mL's of Dilaudid 1 mg/mL. The needle was withdrawn and a bandage was placed over the puncture site. The infusion rate was reprogrammed at Dilaudid 0.125 mg/day with PTC at 0.04mg Q6h. The patient tolerated well with no complication. Plan and Disposition:: We will see the patient back in the clinic at the next intrathecal refill. Patient has been instructed to contact the clinic with any concerns before the next appointment. Dr. Nieto has reviewed this note and agrees with this plan of care. This note was dictated using voice recognition software and make contain errors or omissions.
== END 2021-01-30 13:41 | disposition home or self-care (01) ==
LOC: SC.PAINP 13:07
PROVIDERS: PCP Family Medicine; Visit Provider Clinical Nurse Specialist Family Health
DX: M51.16 Intervertebral disc disorders with radiculopathy, lumbar region (principal); Z45.1 Encounter for adjustment and management of infusion pump; I10 Essential (primary) hypertension; E03.9 Hypothyroidism, unspecified; Z79.899 Other long term (current) drug therapy; Z88.8 Allergy status to other drugs, medicaments and biological substances
CPT/HCPCS: 62370

== ENCOUNTER → 2021-04-03 11:25 | Outpatient (POV) | payer MEDICARE, BC, SELFPAY ==
[2021-04-03 11:44] VITALS: BP 139/76; PULSE 68; RESP 18; TEMP 36.1; O2SAT 96; BMI 38.4
--- NOTE | 2021-04-03 12:29 | HMH.PMPROC ---
- Procedure Date: 04/03/21 Time: 12:29 Anesthesiologist:: Beryl Savage MD Complications:: None Pre-procedure Diagnosis:: Degenerative disc disease of lumbar spine with lumbar radiculopathy Post-procedure Diagnosis:: Same Indications for Procedure:: This patient is a very pleasant 66-year-old white female who presents today with chronic low back pain rating into her legs related to the above diagnosis. She has an intrathecal pump with a flow [place] system with intrathecal Dilaudid on constant flow with PTM with a daily dose of 0.125 mg/day. She states that she feels that pain has been worsening and she is unsure if the pump is working adequately. The plan for today is for the patient to undergo an intrathecal pump adjustment with an increase in her constant flow rate by 20%. Procedure Details:: Analysis and reprogramming of intrathecal morphine pain pump Informed consent was obtained. The risk and benefits of the procedure were explained to the patient. Patient was taken to the procedure room. The pump was interrogated. Intrathecal Dilaudid infusion was increased by [20]% to [0. 5] mg/day with PTC bolusing unchanged. Patient tolerated the procedure well with no complications. Plan and Disposition:: We will follow-up with this patient in 1 week for reassessment of her chronic pain symptoms and possible additional adjustment if indicated.
== END ==
PROVIDERS: Visit Provider Anesthesiology Pain Medicine
DX: M51.16 Intervertebral disc disorders with radiculopathy, lumbar region (principal); Z45.1 Encounter for adjustment and management of infusion pump
CPT/HCPCS: 62368; 99212; G0463

== ENCOUNTER → 2021-04-10 08:40 | Outpatient (POV) | payer MEDICARE, BC, SELFPAY ==
[2021-04-10 09:11] VITALS: BP 140/72; PULSE 70; RESP 18; O2SAT 95; BMI 38.7
--- NOTE | 2021-04-10 12:29 | HMH.PMPROC ---
- Procedure Date: 04/10/21 Time: 12:29 Anesthesiologist:: Beryl Savage MD Complications:: None Pre-procedure Diagnosis:: Degenerative disc disease of the lumbar spine with lumbar radiculopathy Post-procedure Diagnosis:: Same Indications for Procedure:: Patient is a very pleasant 66-year-old white female who presents today for follow-up and pump adjustment. Is currently being treated for degenerative disease of lumbar spine with lumbar radiculopathy. She has a pump with a flow [place] system with intrathecal Dilaudid 1 mg/mL on constant flow and PTC boluses at 0.15 mg/day. She recently underwent an adjustment last week but she states her pain is still remains uncontrolled at this time. She is requesting an additional adjustment today. Today we will perform an intrathecal pump analysis and reprogram with an increase in her constant flow rate by 20%. Procedure Details:: Analysis and reprogramming of intrathecal morphine pain pump Informed consent was obtained. The risk and benefits of the procedure were explained to the patient. Patient was taken to the procedure room. The pump was interrogated. Intrathecal Dilaudid infusion was creased by [20]% to 0.18 mg/day. Patient tolerated the procedure well with no complications. Plan and Disposition:: Follow-up with this patient in 2 weeks for reassessment of her chronic pain symptoms and possible pump adjustment if indicated.
== END ==
PROVIDERS: Visit Provider Anesthesiology Pain Medicine
DX: M51.16 Intervertebral disc disorders with radiculopathy, lumbar region (principal); Z45.1 Encounter for adjustment and management of infusion pump
CPT/HCPCS: 62368

== ENCOUNTER 2021-05-08 12:31 | Day surgery (SDC) | payer MEDICARE, BC, SELFPAY ==
[2021-05-08 13:00] VITALS: BP 126/87; BP 140/64; BP 142/62; PULSE 60; PULSE 64; PULSE 75; RESP 20; TEMP 35.9; O2SAT 95; O2SAT 96; BMI 38.7
--- NOTE | 2021-05-08 13:08 | HMH.PMPROC ---
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 The patient is being treated for degenerative disc disease of the lumbar spine with lumbar radiculopathy symptoms. Patient is currently being managed with Dilaudid 1 mg/mL at a rate of 0.18 mg/day. Patient reports no side effects from this medication. Patient states that this medication is adequately managing her pain. She does not want any adjustments today patient rates pain a 0 out of 10. Drug screen is appropriate. Jerry [id number] with an active morphine equivalent of 0 has been reviewed and is appropriate. Physical exam General: Alert and oriented x3, no acute distress, pleasant and cooperative, [on room air] Lungs: Respirations even and unlabored, symmetrical chest expansion Eyes: PERRL Musculoskeletal: Flexion and extension of lumbar [spine] somewhat guarded secondary to pain, [antalgic gait noted] Neurological: Speech clear, no gross sensory deficit Procedure Details:: Informed consent was obtained and the risk and benefits of the procedure were explained to the patient. The patient was taken to the procedure room where noninvasive monitoring was placed including noninvasive blood pressure cuff and pulse oximeter. Patient's pump was interrogated. The area over the pump was cleansed with chlorhexidine as a cleansing solution. Fluoroscopy was used to access the pump. In sterile fashion the pump was accessed with a 22-gauge needle. Approximately 6 mls of the pump solution was removed and discarded appropriately. The pump was then refilled with 20 mL's of Dilaudid 1 mg/mL. The needle was withdrawn and a bandage was placed over the puncture site. The infusion rate was reprogrammed and continued at Dilaudid 0.18 mg/day. The patient tolerated well with no complication. Plan and Disposition:: We will see the patient back in the clinic at the next intrathecal refill. Patient has been instructed to contact the clinic with any concerns before the next appointment. Dr. Nieto has reviewed this note and agrees with this plan of care. This note was dictated using voice recognition software and make contain errors or omissions.
[2021-05-08 13:35] VITALS: BP 126/82; PULSE 61; RESP 20; O2SAT 96
== END 2021-05-08 13:40 | disposition home or self-care (01) ==
LOC: SC.PAINP 12:32
PROVIDERS: PCP Family Medicine; Visit Provider Student in an Organized Health Care Education/Training Program
DX: M51.16 Intervertebral disc disorders with radiculopathy, lumbar region (principal); Z45.1 Encounter for adjustment and management of infusion pump; I10 Essential (primary) hypertension; K21.9 Gastro-esophageal reflux disease without esophagitis; M19.90 Unspecified osteoarthritis, unspecified site; E03.9 Hypothyroidism, unspecified
CPT/HCPCS: 95991

== ENCOUNTER 2021-07-03 12:56 | Day surgery (SDC) | payer MEDICARE, BC, SELFPAY ==
[2021-07-03 13:12] VITALS: BP 149/55; PULSE 61; RESP 18; TEMP 36.6; O2SAT 97; BMI 38.9
[2021-07-03 13:34] VITALS: BP 161/7; PULSE 58; RESP 18; O2SAT 94
[2021-07-03 13:36] VITALS: BP 156/87; PULSE 60; RESP 18; O2SAT 95
--- NOTE | 2021-07-03 13:40 | HMH.PMPROC ---
- Procedure Date: 07/03/21 Time: 13:41 Anesthesiologist:: MIMI Lucio Complications:: None Pre-procedure Diagnosis:: Degenerative disc disease of lumbar spine with lumbar radiculopathy symptoms Post-procedure Diagnosis:: Same Indications for Procedure:: Patient is a pleasant 66-year-old female who presents today for intrathecal pain pump refill and reprogram. The patient is being treated for degenerative disc disease of lumbar spine with lumbar radiculopathy symptoms. Patient is currently being managed with Dilaudid 1 mg/mL at a rate of 0.18 mg/day. Patient denies any side effects from this medication. Patient rates pain a 3 out of 10. Drug screen is appropriate. Jerry [id number] with an active morphine equivalent of 0 has been reviewed and is appropriate. Physical exam General: Alert and oriented x3, no acute distress, pleasant and cooperative Lungs: Respirations even and unlabored, symmetrical chest expansion Eyes: PERRL Musculoskeletal: Flexion and extension of lumbar [spine] somewhat guarded secondary to pain, [antalgic gait noted] Neurological: Speech clear, no gross sensory deficit Procedure Details:: Informed consent was obtained and the risk and benefits of the procedure were explained to the patient. The patient was taken to the procedure room where noninvasive monitoring was placed including noninvasive blood pressure cuff and pulse oximeter. Patient's pump was interrogated. The area over the pump was cleansed with chlorhexidine as a cleansing solution. [Fluoroscopy was used to access the pump]. In sterile fashion the pump was accessed with a 22-gauge needle. Approximately 10 mls of the pump solution was removed and discarded appropriately. The pump was then refilled with 20 mL's of Dilaudid 1 mg/mL. The needle was withdrawn and a bandage was placed over the puncture site. The infusion rate was reprogrammed and continued at Dilaudid 0.18 mg/day. The patient tolerated well with no complication. Plan and Disposition:: We will see the patient back in the clinic at the next intrathecal refill. Patient has been instructed to contact the clinic with any concerns before the next appointment. Dr. Nieto has reviewed this note and agrees with this plan of care. This note was dictated using voice recognition software and make contain errors or omissions.
[2021-07-03 13:50] VITALS: BP 139/52; PULSE 61; RESP 20; O2SAT 98
== END 2021-07-03 13:51 | disposition home or self-care (01) ==
LOC: SC.PAINP 12:59
PROVIDERS: PCP Nurse Practitioner Family; Visit Provider Student in an Organized Health Care Education/Training Program
DX: M51.16 Intervertebral disc disorders with radiculopathy, lumbar region (principal); Z45.1 Encounter for adjustment and management of infusion pump; K21.9 Gastro-esophageal reflux disease without esophagitis; E78.5 Hyperlipidemia, unspecified; I10 Essential (primary) hypertension; M19.90 Unspecified osteoarthritis, unspecified site; E03.9 Hypothyroidism, unspecified; Z88.5 Allergy status to narcotic agent; Z88.8 Allergy status to other drugs, medicaments and biological substances; Z79.899 Other long term (current) drug therapy
CPT/HCPCS: 95991

== ENCOUNTER 2021-09-04 13:24 | Day surgery (SDC) | payer MEDICARE, BC, SELFPAY ==
[2021-09-04 13:38] VITALS: BP 145/56; PULSE 70; RESP 20; TEMP 36.4; O2SAT 98; BMI 38.7
[2021-09-04 13:52] VITALS: BP 148/98; PULSE 73; RESP 20; O2SAT 96
--- NOTE | 2021-09-04 13:52 | HMH.PMPROC ---
- Procedure Date: 09/04/21 Time: 13:52 Anesthesiologist:: MIMI Lucio Complications:: None Pre-procedure Diagnosis:: Degenerative disc disease of lumbar spine with lumbar radiculopathy symptoms Post-procedure Diagnosis:: Same Indications for Procedure:: Patient is a pleasant 86-year-old female who presents today for intrathecal pain pump refill. The patient is being treated for degenerative disc disease of lumbar spine with lumbar radiculopathy symptoms. Patient is currently being managed with Dilaudid 1 mg/mL with a daily dose of 0.18 mg/day. Patient denies any side effects from this medication. Patient rates pain a 5 out of 10. Drug screen is appropriate. [facility] [id number] has been reviewed and is appropriate. Physical exam General: Alert and oriented x3, no acute distress, pleasant and cooperative Lungs: Respirations even and unlabored, symmetrical chest expansion Eyes: PERRL Musculoskeletal: Flexion and extension of lumbar [spine] somewhat guarded secondary to pain, [antalgic gait noted] Neurological: Speech clear, no gross sensory deficit Procedure Details:: Informed consent was obtained and the risk and benefits of the procedure were explained to the patient. The patient was taken to the procedure room where noninvasive monitoring was placed including noninvasive blood pressure cuff and pulse oximeter. Patient's pump was interrogated. The area over the pump was cleansed with chlorhexidine as a cleansing solution. In sterile fashion the pump was accessed with a 22-gauge needle. Approximately 8.5 mls of the pump solution was removed and discarded appropriately. The pump was then refilled with 20 mL's of Dilaudid 1 mg/mL with a daily dose of 0.18 mg/day. The needle was withdrawn and a bandage was placed over the puncture site. The infusion rate was reprogrammed and continued. No adjustments at this time. The patient tolerated well with no complication. Plan and Disposition:: We will see the patient back in the clinic at the next intrathecal refill. Patient has been instructed to contact the clinic with any concerns before the next appointment. Dr. Nieto has reviewed this note and agrees with this plan of care. This note was dictated using voice recognition software and make contain errors or omissions.
[2021-09-04 14:12] VITALS: BP 128/73; PULSE 60; RESP 18; TEMP 36.4; O2SAT 96
== END 2021-09-04 14:13 | disposition home or self-care (01) ==
LOC: SC.PAINP 13:25
PROVIDERS: PCP Nurse Practitioner Family; Visit Provider Student in an Organized Health Care Education/Training Program
DX: M51.16 Intervertebral disc disorders with radiculopathy, lumbar region (principal)
CPT/HCPCS: 95991

== ENCOUNTER → 2021-11-09 09:55 | Outpatient (CLI) | payer MEDICARE, BC, SELFPAY ==
[2021-11-09 11:12] LABS: Alanine Aminotransferase 28 U/L (12-78); Albumin/Globulin Ratio 1.8 (1.1-1.8); Alkaline Phosphatase 35 U/L (38-126); Anion Gap 14.1 mEq/L (5-15); Aspartate Amino Transferase 36 U/L (14-36); Bilirubin,Total 0.5 mg/dl (0.2-1.3); Blood Urea Nitrogen 27 mg/dl (7-17); Calcium 9.5 mg/dl (8.4-10.2); Carbon Dioxide 30 mmol/L (22.0-30.0); Chloride 101 mmol/L (98-107); Estimated Glomerular Filt Rate 55 ml/min (>60); GFR (African American) 67 ML/MIN (>60); Globulin 2.2 g/dL (1.3-3.2); Glucose 93 mg/dl (74-100); Potassium 4.1 mmoL/L (3.5-5.1); Sodium 141 mmol/L (136-145); Total Protein,Serum 6.2 g/dl (6.3-8.2)
== END ==
PROVIDERS: PCP Nurse Practitioner Family; Visit Provider Nurse Practitioner Family
DX: R10.9 Unspecified abdominal pain (principal)
CPT/HCPCS: 36415; 80053

== ENCOUNTER 2021-11-14 08:05 | Day surgery (SDC) | payer MEDICARE, BC, SELFPAY ==
--- NOTE | 2021-11-14 08:13 | CT_ITS ---
FINAL REPORT TECHNIQUE: Oral and IV contrast enhanced exam. This study was performed with techniques to keep radiation doses as low as reasonably achievable (ALARA). Individualized dose reduction techniques using automated exposure control or adjustment of mA and/or kV according to the patient's size were employed. CLINICAL HISTORY: RIGHT SIDED ABDOMINAL PAIN FINDINGS: Abdomen: No acute density is seen within the lung bases. Moderate hiatal hernia. Moderate extrahepatic biliary duct dilatation up to 12 mm to the level of the ampulla. Ampullary stenosis cannot be excluded. Solid abdominal organs are unremarkable. No bowel obstruction is present. There is no free air. No fluid collection is seen. There is no adenopathy. Pelvis: The appendix is normal. No bowel wall thickening is present. There is no free fluid. No pelvic mass is seen. Prior hysterectomy. IMPRESSION: Moderate extrahepatic biliary duct dilatation. Ampullary stenosis cannot be excluded. Correlate with LFTs. Reviewed, Interpreted and Dictated by Shannon Mcghee MD Transcribed by Rubens Chiang Authenticated and . [facility]
[2021-11-14 09:44] VITALS: BP 134/47; PULSE 61; RESP 18; TEMP 36.8; O2SAT 97; BMI 37.9
[2021-11-14 10:03] VITALS: BP 139/58; PULSE 62; RESP 18; O2SAT 98
[2021-11-14 10:06] VITALS: BP 139/58; PULSE 62; RESP 18; O2SAT 98
--- NOTE | 2021-11-14 10:15 | P.PCN_ITS ---
Procedure Date: 11/14/21 Time: 10:05 Anesthesiologist:: Ministerio Cunningham CRNA Complications:: None Pre-procedure Diagnosis:: Degenerative disc disease of lumbar spine with lumbar radiculopathy symptoms Post-procedure Diagnosis:: Same Indications for Procedure:: Patient is a pleasant 66-year-old female who presents today for intrathecal pain pump refill. She is currently being treated for degenerative disc disease of lumbar spine with lumbar radiculopathy symptoms. We are currently managing her with Dilaudid 1 mg/mL with a daily dose of 0.18 mg/day. Patient denies any side effects from this medication. She rates her pain today a 2 out of 10. Physical exam General: Alert and oriented x3, no acute distress, pleasant cooperative Lungs: Respiration even and unlabored, symmetrical chest expansion Eyes: PERRL Musculoskeletal: Flexion and extension of lumbar spine somewhat guarded sec ondary to pain antalgic gait noted Neurological: Speech clear no gross sensory deficit Procedure Details:: Informed consent was obtained and the risk and benefits of the procedure were explained to the patient. The patient was taken to the procedure room where noninvasive monitoring was placed including a noninvasive blood pressure cuff and pulse oximeter. Patient's pump was interrogated. The area over the pump was cleansed with chlorhexidine as a cleansing solution. In a sterile fashion the pump was accessed with a 22-gauge needle. From interrogation of the system 6.6 mL was expected. Approximately 7.2 mL of pump solution was removed and discarded appropriately. The pump was then refilled with 20 mL of Dilaudid 1 mg/mL. The needle was withdrawn and a bandage was placed over the puncture site. The infusion rate was continued at Dilaudid 1 mg/mL with a daily dose of 0.18 mg/day. The patient tolerated the procedure well with no complications. Plan and Disposition:: We will see the patient back at the next intrathecal pump refill date. The patient has been instructed to contact the clinic with any concerns before the next appointment. Dr. Nieto agrees with this plan of care and has reviewed this note. This note was dictated using voice recognition software and may contain e rrors or omissions.
[2021-11-14 10:18] VITALS: BP 131/54; PULSE 60; RESP 18; O2SAT 98
== END 2021-11-14 10:18 | disposition home or self-care (01) ==
LOC: RAD 09:29 → SC.PAINP 09:29 → RAD 11-15 14:11 → SC.PAINP 11-15 14:11
PROVIDERS: PCP Nurse Practitioner Family; Visit Provider Nurse Anesthetist, Certified Registered
DX: M51.16 Intervertebral disc disorders with radiculopathy, lumbar region (principal)
CPT/HCPCS: 74177; 95991; Q9967

== ENCOUNTER → 2021-12-25 09:33 | Outpatient (CLI) | payer MEDICARE, BC, SELFPAY ==
[2021-12-25 10:10] LABS: Chloride 102 mmol/L (98-107); Potassium 3.9 mmoL/L (3.5-5.1); Sodium 143 mmol/L (136-145)
[2021-12-25 10:13] LABS: Alanine Aminotransferase 23 U/L (12-78); Alkaline Phosphatase 34 U/L (38-126); Amylase 48 U/L (30-110); Anion Gap 12.9 mEq/L (5-15); Aspartate Amino Transferase 33 U/L (14-36); Bilirubin,Total 0.6 mg/dl (0.2-1.3); Blood Urea Nitrogen 36 mg/dl (7-17); Carbon Dioxide 32 mmol/L (22.0-30.0); Estimated Glomerular Filt Rate 50 ml/min (>60); GFR (African American) 60 ML/MIN (>60); Glucose 100 mg/dl (74-100); Lipase 26 U/L (23-300)
[2021-12-25 10:14] LABS: Albumin Level 4.2 g/dl (3.5-5.0); Albumin/Globulin Ratio 1.8 (1.1-1.8); Globulin 2.4 g/dL (1.3-3.2); Total Protein,Serum 6.6 g/dl (6.3-8.2)
== END ==
PROVIDERS: PCP Nurse Practitioner Family; Visit Provider Nurse Practitioner Family
DX: R10.84 Generalized abdominal pain (principal); K83.8 Other specified diseases of biliary tract; R14.0 Abdominal distension (gaseous); R14.3 Flatulence; K59.03 Drug induced constipation
CPT/HCPCS: 36415; 80053; 82150; 83690

== ENCOUNTER 2022-01-16 08:48 | Day surgery (SDC) | payer MEDICARE, BC, SELFPAY ==
[2022-01-16 09:03] VITALS: BP 140/71; PULSE 59; RESP 18; TEMP 36.3; O2SAT 94; BMI 37.3
--- NOTE | 2022-01-16 09:37 | P.PCN_ITS ---
Procedure Date: 01/16/22 Time: 09:37 Anesthesiologist:: Ministerio Cunningham CRNA Complications:: None Pre-procedure Diagnosis:: Degenerative disc disease of lumbar spine with lumbar radiculopathy symptoms Post-procedure Diagnosis:: Same Indications for Procedure:: Patient is a pleasant 66-year-old female who presents today for intrathecal pain pump refill. She is currently being treated for degenerative disc disease of lumbar spine with lumbar radiculopathy symptoms. Today she rates her pain a 2 out of 10. Patient denies any new trauma or injury. Patient denies any change of location or type of pain she experiences. She is currently managed with Dilaudid 1 mg/mL with a daily dose of 0.18 mg/day. Patient denies any side effects from this medication. She states this medication does adequately manage her pain symptoms. General: Alert and oriented x3, no acute distress, pleasant and cooperative Lungs: Respiration even unlabored, symmetrical chest expansion Eyes: PERRL Musculoskeletal: Flexion and extension of lumbar spine somewhat guarded secondary to pain, antalgic gait noted Neurological: Speech clear, no gross sensory deficit Procedure Details:: Informed consent was obtained and the risk and benefits of the procedure were explained to the patient. The patient was taken to the procedure room and placed in a sitting position on the exam table with noninvasive monitoring placed including a noninvasive blood pressure cuff and a pulse oximeter. Patient's pump was interrogated with approximately 8 mL of solution expected. The area over the pump was cleansed with ChloraPrep as a cleansing solution. Using a 22-gauge sterile needle the pump was accessed and approximately 8.5 mL of pump solution was removed and discarded appropriately. The pump was then refilled with 20 mL of Dilaudid 1 mg/mL. The needle was withdrawn and a bandage placed over the puncture site. The infusion rate was continued at Dilaudid 0.18 mg/day. Patient tolerated the procedure well with no complications. Plan and Disposition:: Patient was monitored in the clinic setting for short period of time following this procedure and discharged neurologically intact. We will see the patient ba ishaan at her next intrathecal refill date. Patient has been instructed to contact the clinic with any questions or concerns before the next appointment date. Dr. Nieto has read this note and agrees with this plan of care. This note was dictated using voice recognition software and may contain errors or omissions.
[2022-01-16 09:45] VITALS: BP 149/66; PULSE 57; RESP 20
== END 2022-01-16 09:45 | disposition home or self-care (01) ==
PROVIDERS: PCP Nurse Practitioner Family; Visit Provider Nurse Anesthetist, Certified Registered
DX: M51.16 Intervertebral disc disorders with radiculopathy, lumbar region (principal)
CPT/HCPCS: 95991

== ENCOUNTER → 2022-02-05 09:56 | Outpatient (CLI) | payer MEDICARE, BC, SELFPAY ==
--- NOTE | 2022-02-05 10:01 | XR_ITS ---
FINAL REPORT CLINICAL HISTORY: CONSTIPATION FINDINGS: A single view of the abdomen was obtained. There is a nonobstructive bowel gas pattern. There are no abnormally dilated loops of small bowel. There is a moderate amount of retained stool. There is a presumed intrathecal catheter present. There are postoperative changes in the lower lumbar spine. IMPRESSION: 1. Nonobstructive bowel gas pattern. 2. Moderate amount of retained stool. Reviewed, Interpreted and Dictated by Jose Wright III, MD Transcribed by Coty Santamaria Authenticated and [facility]
== END ==
PROVIDERS: PCP Nurse Practitioner Family; Visit Provider Nurse Practitioner Family
DX: K83.8 Other specified diseases of biliary tract (principal); K59.03 Drug induced constipation; R14.0 Abdominal distension (gaseous); R10.84 Generalized abdominal pain
CPT/HCPCS: 74018

== ENCOUNTER 2022-03-27 12:47 | Day surgery (SDC) | payer MEDICARE, BC, SELFPAY ==
[2022-03-27 13:03] VITALS: BP 134/62; PULSE 64; RESP 18; TEMP 36.6; O2SAT 97; BMI 37.4
[2022-03-27 13:08] VITALS: BP 148/80; PULSE 68; RESP 18; O2SAT 98
[2022-03-27 13:09] VITALS: BP 148/80; PULSE 68; RESP 18; O2SAT 98
--- NOTE | 2022-03-27 13:25 | EXP.PAIN.PRO ---
Procedure Date: 03/27/22 Time: 13:00 Anesthesiologist:: Ministerio Cunningham CRNA Complications:: None Pre-procedure Diagnosis:: Degenerative disease lumbar spine multilevels. Lumbar radiculopathy Post-procedure Diagnosis:: Same. Indications for Procedure:: This patient is a very pleasant 67-year-old female who comes to clinic today for intrathecal pain pump interrogation and refill. Patient currently being managed with Dilaudid 1 mg/mL at 0.18 mg today. She is doing very well with her current settings. She does not wish for any increase or decrease today. Procedure Details:: Details of the procedure were explained to the patient. The patient taken the procedure room placed in the sitting position. The area over the pump was cleansed using chlorhexidine as a cleansing solution. The pump was accessed with ease using a 22-gauge inch and half needle. 7 mL of solution was withdrawn and discarded appropriately. The pump was then filled with 20 cc of Dilaudid 1 mg/mL. The pump will remain at the same rate. 0.18 mg/day. Plan and Disposition:: Patient was discharged without incident
[2022-03-27 13:37] VITALS: BP 136/52; PULSE 63; RESP 18; O2SAT 97
== END 2022-03-27 13:37 | disposition home or self-care (01) ==
PROVIDERS: PCP Nurse Practitioner Family; Visit Provider Nurse Anesthetist, Certified Registered
DX: M51.16 Intervertebral disc disorders with radiculopathy, lumbar region (principal); Z45.1 Encounter for adjustment and management of infusion pump
CPT/HCPCS: 95991

== ENCOUNTER 2022-06-05 09:51 | Day surgery (SDC) | payer MEDICARE, BC, SELFPAY ==
[2022-06-05 10:03] VITALS: BP 136/86; PULSE 72; RESP 18; O2SAT 97
[2022-06-05 10:04] VITALS: BP 129/73; PULSE 65; RESP 18; TEMP 36.1; O2SAT 96; BMI 35.4
[2022-06-05 10:15] VITALS: BP 117/54; PULSE 66; RESP 18; O2SAT 96
--- NOTE | 2022-06-05 10:24 | EXP.PAIN.PRO ---
Procedure Date: 06/05/22 Time: 10:00 Anesthesiologist:: Ministerio Cunningham CRNA Complications:: None Pre-procedure Diagnosis:: Degenerative disc disease lumbar spine multilevels. Lumbar radiculopathy. Post-procedure Diagnosis:: Same. Indications for Procedure:: She isPatient is a very pleasant 67-year-old female comes our clinic today for intrathecal pain pump interrogation refill. Being managed with Dilaudid 1 mg/mL 0.18 mg/day. She is doing very well with her current settings. She does not complain of any side effects or complications regarding the intrathecal pain pump management. Her Jerry has been reviewed today and is appropriate. #[id number]. Procedure Details:: Details of the procedure explained to the patient. The patient taken to procedure room placed in sitting position. The area over the pump was cleansed using chlorhexidine as a cleansing solution. The pump was interrogated. The pump was accessed with a ease. 7 mL of solution was withdrawn and discarded appropriately. The pump was then filled with 20 cc of Dilaudid 1 mg/mL. The rate will continue the same at 0.1800 mg/day. Plan and Disposition:: Patient was discharged without incident
== END 2022-06-05 10:15 | disposition home or self-care (01) ==
PROVIDERS: PCP Nurse Practitioner Family; Visit Provider Nurse Anesthetist, Certified Registered
DX: Z45.1 Encounter for adjustment and management of infusion pump (principal); M51.16 Intervertebral disc disorders with radiculopathy, lumbar region
CPT/HCPCS: 95991

== ENCOUNTER 2022-08-07 09:45 | Day surgery (SDC) | payer MEDICARE, BC, SELFPAY ==
[2022-08-07 09:49] VITALS: BP 132/62; PULSE 63; RESP 18; TEMP 36.4; O2SAT 95; BMI 37.5
[2022-08-07 09:58] VITALS: BP 156/72; PULSE 62; RESP 18; O2SAT 96
[2022-08-07 09:59] VITALS: BP 156/72; PULSE 62; RESP 18; O2SAT 96
[2022-08-07 10:11] VITALS: BP 132/51; PULSE 60; RESP 18; O2SAT 95
--- NOTE | 2022-08-07 10:19 | EXP.PAIN.PRO ---
Procedure Date: 08/07/22 Time: 10:05 Anesthesiologist:: Ministerio Cunningham CRNA Complications:: None Pre-procedure Diagnosis:: Degenerative disc lumbar spine multilevels. Lumbar radiculopathy. Post-procedure Diagnosis:: Same. Indications for Procedure:: Patient is a very pleasant 67-year-old female comes our clinic today for intrathecal pain pump interrogation refill. Patient is being managed with Dilaudid 1 mg/mL at 0.18 mg/day. She is doing very well with her current settings. She does not report any side effects or complications. Procedure Details:: Details of the procedure explained to the patient. The patient was taken the procedure room placed in the sitting position. The area over the pump was cleansed using chlorhexidine as a cleansing solution. The pump was interrogated. The pump was accessed with ease using a 22-gauge inch and a half needle. 8 mL of solution was withdrawn and discarded appropriately. The pump was then filled incrementally with 20 cc of Dilaudid 1 mg/mL. The rate will continue at 0.18 mg/day. Patient tolerated procedure without difficulty. There are no complications. Plan and Disposition:: Patient was discharged without incident.
== END 2022-08-07 10:11 | disposition home or self-care (01) ==
LOC: SC.PAINP 09:46
PROVIDERS: PCP Nurse Practitioner Family; Visit Provider Nurse Anesthetist, Certified Registered
DX: M51.16 Intervertebral disc disorders with radiculopathy, lumbar region (principal)
CPT/HCPCS: 95991

== ENCOUNTER 2022-10-09 09:47 | Day surgery (SDC) | payer MEDICARE, BC, SELFPAY ==
[2022-10-09 10:13] VITALS: BP 155/69; PULSE 62; RESP 18; TEMP 36.6; O2SAT 96; BMI 37.5
[2022-10-09 10:38] VITALS: BP 149/80; PULSE 57; RESP 18; O2SAT 98
[2022-10-09 10:39] VITALS: BP 149/80; PULSE 57; RESP 18; O2SAT 97
--- NOTE | 2022-10-09 10:45 | EXP.PAIN.PRO ---
Procedure Date: 10/09/22 Time: 10:40 Anesthesiologist:: Ministerio Cunningham CRNA Complications:: None Pre-procedure Diagnosis:: Degenerative disc lumbar spine multilevels. Lumbar radiculopathy. Post-procedure Diagnosis:: Same. Indications for Procedure:: Very pleasant 67-year-old female comes our clinic today for intrathecal pain pump interrogation refill. Currently patient is being managed with Dilaudid 1 mg/mL at 0.18 mg/day. She is complaining of some increased thoracolumbar back pain that she describes as dull, aching at times. Patient does not feel as though she is receiving adequate PTC dose. She is requesting an overall increase. I think this is reasonable. We will increase her overall rate by 10%. Her PTC dose as well. Procedure Details:: Details of the procedure explained to the patient. The patient taken to procedure room placed in the sitting position. The area over the pump is cleansed using chlorhexidine cleansing solution. The pump was interrogated. The pump was accessed with ease using a 22-gauge inch and half needle. 8.2 mL of solution was withdrawn and discarded appropriately. The pump was then filled with 20 cc of a solution containing Dilaudid 1 mg/mL. The pump rate will be increased to 0.1980 mg/day. Her PTC dose will be 0.0190 mg per dose. Plan and Disposition:: Patient was discharged without incident.
[2022-10-09 10:50] VITALS: BP 175/68; PULSE 52; RESP 18; O2SAT 96
[2022-10-09 11:46] LABS: Amphetamine/Metha Screen,Urine Negative ng/ml (<1000)
[2022-10-09 11:47] LABS: Barbiturates Screen,Urine Negative ng/ml (<200)
[2022-10-09 11:48] LABS: Cannabinoid Screen,Urine Negative ng/ml (<50)
[2022-10-09 11:49] LABS: Cocaine Screen,Urine Negative ng/ml (<300); Methadone Screen,Urine Negative ng/ml (<300)
[2022-10-09 11:50] LABS: Phencyclidine Screen,Urine Negative ng/ml (<25)
[2022-10-09 11:51] LABS: Opiate Screen,Urine Negative ng/ml (<300)
[2022-10-09 14:30] LABS: Benzodiazepines Screen,Urine Negative ng/ml (<200)
[2022-10-15 07:28] LABS: Opiates Negative (Cutoff=100)
== END 2022-10-09 10:50 | disposition home or self-care (01) ==
PROVIDERS: Anesthesiology; PCP Nurse Practitioner Family; Visit Provider Nurse Anesthetist, Certified Registered
DX: M51.16 Intervertebral disc disorders with radiculopathy, lumbar region (principal); Z97.8 Presence of other specified devices
CPT/HCPCS: 80305; 80361; 80365; 95991; G0480

== ENCOUNTER 2022-10-23 08:35 | Day surgery (SDC) | payer MEDICARE, BC, SELFPAY ==
[2022-10-23 08:48] VITALS: BP 179/78; PULSE 63; RESP 18; TEMP 36.3; O2SAT 96; BMI 37.8
[2022-10-23 09:21] VITALS: BP 179/78; PULSE 63; RESP 17; O2SAT 96; BMI 37.8
[2022-10-23 09:45] VITALS: BP 178/72; PULSE 58; RESP 20
--- NOTE | 2022-10-23 10:16 | P.PCN_ITS ---
Procedure Date: 10/23/22 Time: 09:00 Anesthesiologist:: Ministerio Cunningham CRNA Complications:: None Pre-procedure Diagnosis:: Degenerative disc disease lumbar spine multilevels. Lumbar radiculopathy. Lumbar postlaminectomy syndrome. Lumbar spondylosis. Left sacroiliitis. Post-procedure Diagnosis:: Same. Indications for Procedure:: Patient is a very pleasant 67-year-old female that comes our clinic today for increased pain complaint in her low left lumbar area and left posterior hip area . Discussing increased pain with the patient she states this started 4 or 5 days ago. Came on suddenly. Pain intensified over the last few days. Intrathecal pain pump with PTC does not improve the pain. She describes the pain as constant, dull, sharp, stabbing in the left low lumbar and left posterior hip area. Patient also complains of radiation of pain into the left anterior thigh. Patient has difficulty transitioning from sitting to standing. Patient has difficulty ambulating due to increase in pain of the left posterior hip. Upon examination patient has extreme point tenderness over the left sacroiliac joint. Patient has positive Roopa's test left. Positive Gaenslen's test left. Positive left sacroiliac joint compression test. I discussed left sacroiliac joint injection with the patient. Described the injection in details risk versus benefits. She wishes to proceed. Procedure Details:: Procedure: Left sacroiliac injection under fluoroscopy Informed consent was obtained and the risk and benefits of the procedure were explained to the patient.~ The patient was taken to the procedure room and noninvasive monitors were placed including noninvasive blood pressure cuff and pulse oximeter.~ The patient was placed prone on the procedure table.~ The~ left hip was cleansed using Betadine as a cleansing solution.~ C-arm fluorosocpy was used to view the left SI joint.~ The skin and subcutaneous tissues were anesthetized using Lidocaine 1.5% and a 25-gauge needle.~ After this, a 22-gauge spinal needle was inserted under fluoroscopic guidance into the inferior aspect of the left SI joint.~ Omnipaque dye was injected and a good spread was seen throughout the joint.~ After this, approximately 5 mL of bupivacaine 0.25% and Depo-Medrol 40 mg was incrementally injected into the sacroiliac joint.~ The patient tolerated the procedure well with no complications.~ The patient was observed in the Pain Clinic for a period of 30-45 minutes, then discharged home neurologically intact.~ Plan and Disposition:: Patient was reevaluated 10 minutes post procedure. I ambulated with the patient as well as observe the patient sitting and standing multiple times. Patient reports 80+ percent improvement terms of her overall left low lumbar and left posterior hip pain.
== END 2022-10-23 09:45 | disposition home or self-care (01) ==
LOC: SC.PAIN 10:09
PROVIDERS: PCP Family Medicine; Visit Provider Anesthesiology
DX: M46.1 Sacroiliitis, not elsewhere classified (principal); M51.16 Intervertebral disc disorders with radiculopathy, lumbar region; M47.26 Other spondylosis with radiculopathy, lumbar region; M96.1 Postlaminectomy syndrome, not elsewhere classified
CPT/HCPCS: 27096; 99212; G0260; G0463; J1040

== ENCOUNTER → 2022-11-08 09:12 | Outpatient (POV) | payer MEDICARE, BC, SELFPAY ==
--- NOTE | 2022-11-08 09:41 | EXP.PAIN.PRO ---
Procedure Date: 11/08/22 Time: 09:42 Anesthesiologist:: Roxanna Marquez APRN Complications:: None Pre-procedure Diagnosis:: Degenerative disc disease of lumbar spine with lumbar radiculopathy symptoms, lumbar postlaminectomy syndrome, lumbar spondylosis, left sacroiliitis Post-procedure Diagnosis:: Same Indications for Procedure:: Patient is a pleasant 67-year-old female who presents today for follow-up of left SI injection on 10/23/2022. We are currently treating the patient for degenerative disc disease of lumbar spine with lumbar radiculopathy symptoms, lumbar postlaminectomy syndrome, lumbar spondylosis, left sacroiliitis. Today she rates her pain a 10 out of 10. Patient denies any new trauma or injury. She states that the injection did provide 99% improvement for about 2 weeks. Patient states she was able to increase her activity with decreased pain symptoms. She does state though that just recently she was even going to the grocery store and walking up she felt a change in sensations and having radiating pain down her bilateral legs. Patient states she had to go back to the car and sit. She states the pain has continued and is worse with prolonged walking or standing. Patient does state that it is interfering with activities of daily living such as cooking and cleaning. She is also currently managed with Dilaudid 1 mg/mL with a daily dose of 0.198 mg/day. Patient denies any side effects from this medication. Patient does use a cane to help with ambulation. Her Jerry has been reviewed and is appropriate. Physical Exam: General: Alert and oriented x3, no acute distress, pleasant and cooperative Lungs: Respirations even and unlabored, symmetrical chest expansion Eyes: PERRL Musculoskeletal: Flexion and extension of lumbar [spine] somewhat guarded secondary to pain, [antalgic gait noted] Neurological: Speech clear, no gross sensory deficit Procedure Details:: Informed consent was obtained and the risk and benefits of the procedure were explained to the patient. Patient was taken to the procedure room where noninvasive monitoring was placed including noninvasive blood pressure cuff and pulse oximeter. Patient's pump was interrogated and was reprogrammed to Dilaudid 0.218 mg/day. The patient tolerated the procedure well with no complications. Plan and Disposition:: I have discussed with the patient due to her worsening low back pain that radiates down her bilateral legs that she may benefit from a lumbar epidural steroid injection. Patient did have limited range of motion of her lumbar spine during today's visit. Risk and benefits of this injection were explained to the patient and she would like to proceed forward with this plan of care. Patient is not on any blood thinners. We will schedule her for an LESI L4-L5. Patient tolerated her intrathecal increase with no complications and was discharged neurologically intact. Patient has been instructed to contact the clinic with any concerns before the next appointment. Dr. Nieto has reviewed this note and agrees with this plan of care. This note was dictated using voice recognition software and make contain errors or omissions. -- It Is medically necessary for this patient to continue to have their intrathecal pump refilled at regular intervals. This patient had an intrathecal pain pump implanted after meeting criteria of chronic intractable pain for greater than 3 months and failing conservative treatments. Patient has committed and been compliant to the treatment plan and all planned follow up care. Since implantation of the intrathecal pain pump, the patient has had decreased pain and been more functional. Oral medications have been reduced including intake of oral opioids. Patient continues to do well with intrathecal therapy with decrease in pain symptoms and increase in functional status. Stopping intrathecal medications can lead to life threatening withdrawal, seizures, cardiac arrest, se
[2022-11-08 12:06] VITALS: BP 193/83; PULSE 58; RESP 18; O2SAT 95; BMI 37.0
== END | disposition home or self-care (01) ==
PROVIDERS: PCP Nurse Practitioner Family; Visit Provider Nurse Practitioner Family
DX: M51.16 Intervertebral disc disorders with radiculopathy, lumbar region (principal); M96.1 Postlaminectomy syndrome, not elsewhere classified; M47.26 Other spondylosis with radiculopathy, lumbar region; M46.1 Sacroiliitis, not elsewhere classified; Z97.8 Presence of other specified devices
CPT/HCPCS: 62368; 99213; G0463

== ENCOUNTER 2022-11-13 08:55 | Day surgery (SDC) | payer MEDICARE, BC, SELFPAY ==
[2022-11-13 09:00] VITALS: BP 139/93; PULSE 66; RESP 18; TEMP 36.3; O2SAT 92; BMI 36.2
[2022-11-13 09:12] VITALS: BP 132/96; PULSE 61; RESP 18; O2SAT 96; O2SAT 97
[2022-11-13 09:18] VITALS: BP 167/78; PULSE 63; RESP 18; O2SAT 92
--- NOTE | 2022-11-13 09:18 | EXP.PAIN.PRO ---
Procedure Date: 11/13/22 Time: 09:10 Anesthesiologist:: Ministerio Cunningham CRNA Complications:: None Pre-procedure Diagnosis:: Degenerative disc lumbar spine multilevels. Lumbar radiculopathy. Lumbar postlaminectomy syndrome. Lumbar spondylosis. Post-procedure Diagnosis:: Same. Indications for Procedure:: Patient is a very pleasant 67-year-old female that comes our clinic today for lumbar epidural steroid injection at the L4-5 level. Patient complains of low back pain that she describes as constant, dull, aching. Patient also complains of bilateral hip and leg radicular symptoms. She rates her pain today 08/27 Procedure Details:: Procedure: Lumbar epidural steroid injection under fluoroscopy Informed consent was obtained and the risks and benefits of the procedure were explained to the patient. The patient was taken to the procedure room and noninvasive monitors placed, including noninvasive blood pressure cuff and pulse oximeter. The back was viewed using C-arm Fluoroscopy and prepped using Chloraprep as a cleansing solution and the L4-L5 interspace was palpated. Skin and subcutaneous tissues were anesthetized using lidocaine 1.5% and a 25-gauge needle. After this, an 18-gauge Touhy epidural needle was placed into the L4-L5 interspace and advanced using fluoroscopic guidance and loss of resistance to air until the epidural space was encountered. After confirmation of needle placement in the epidural space, with dye, a solution containing normal saline, 3 mL and Depo-Medrol 80 mg were incrementally injected into the lumbar epidural space. The patient tolerated the procedure well with no complications. The patient was observed in the Pain Clinic and then discharged home neurologically intact. Plan and Disposition:: Patient was discharged without incident.
== END 2022-11-13 09:18 | disposition home or self-care (01) ==
PROVIDERS: PCP Nurse Practitioner Family; Visit Provider Nurse Anesthetist, Certified Registered
DX: M51.16 Intervertebral disc disorders with radiculopathy, lumbar region (principal); M96.1 Postlaminectomy syndrome, not elsewhere classified; M47.26 Other spondylosis with radiculopathy, lumbar region
CPT/HCPCS: 62323; J1040

== ENCOUNTER → 2022-11-30 07:58 | Outpatient (POV) | payer MEDICARE, BC, SELFPAY ==
[2022-11-30 08:11] VITALS: BP 155/64; PULSE 63; RESP 20; BMI 36.8
--- NOTE | 2022-11-30 09:54 | A.OFFVIS_ITS ---
[facility] Pain Management SOAP Note Subjective:: This patient is a very pleasant 51-year-old female that comes our clinic today for a 1 month follow-up and medication refills. We currently manage the patient for degenerative disc disease lumbar spine multilevels. Lumbar radiculopathy. Bilateral sacroiliitis. Chronic lupus. Chronic pain syndrome. Today she rates her pain 3/10. We currently manage the patient with Goodells 10 mg 1 p.o. 5 times daily. Lyrica 100 mg 1 p.o. twice daily. Also, baclofen 5 mg 3 times daily. Patient states the medications she receives from our office is helping her significantly in terms of her overall pain. Patient does not report any side effects from the medications. Patient's Jerry #[id number] has been reviewed and appropriate. We will refill her pain medication today. 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 Patient states she is doing very well with her current medications. She will be sent for UDS today. Objective:: Patient is awake alert [place] x3. In no acute distress. Flexion-extension lumbar spine somewhat guarded secondary to pain. Deep tendon reflexes upper lower extremities normal. Motor strength upper and lower extremities normal. There is no sensory deficit. Gait is normal. Assessment:: Degenerative disc lumbar spine multilevels. Lumbar radiculopathy. Bilateral sacroiliitis. Chronic pain syndrome. Chronic lupus pain. Plan:: We will refill the patient's medications today. Goodells 10 mg 1 p.o. 5 times daily. Lyrica 100 mg 1 p.o. 3 times daily. These include the clinic pharmacy. Patient receiving UDS today. She will see us back in a month. [facility] Disclaimer: The information contained in this section may have been updated after the patient was seen, as this information can be updated by other users. Medical History Implantable intrathecal infusion pump present Normal colonoscopy Varicose vein of leg Surgical History History of bilateral knee replacement History of stress incontinence procedure using tension free vaginal tape History of thyroidectomy Hx of tonsillectomy Previous back surgery Family History Other No significant family history Social History Smoking Status: Never smoker second hand exposure: No alcohol intake: never substance use type: denies use current occupational status: other Travel in the last 8 weeks: None household members: spouse housing: house current occupational exposures/hazards: No caffeine: Yes
--- NOTE | 2022-11-30 11:25 | A.OFFVIS_ITS ---
[facility] Pain Management SOAP Note Subjective:: This patient is a very pleasant 67-year-old female that returns our clinic today after receiving lumbar epidural steroid injection on 11/13/2022. Patient reports 75% improvement terms of her overall low back pain as well as bilateral hip and leg radicular symptoms. Patient describes low back pain as slight, dull at times. Pain increases with activity. However, secondary to the pump she is able to do housework as well as some light yard work with minimal pain. We also manage the patient with intrathecal pain pump. Patient's pump is managed with Dilaudid 1 mg/mL. She is currently at 0.2180 mg/day. Patient does not report any side effects from the intrathecal pain pump management. Patient is due for refill for the intrathecal pain pump on 01/04/2023. Patient rates her pain today 09/27. Patient's Jerry #[id number] has been reviewed and appropriate. Objective:: Patient is awake alert [place] x3. No acute distress. Flexion-extension lumbar spine somewhat guarded secondary to pain. Deep tendon reflexes upper and lower extremities normal. Motor strength upper and lower extremities normal. There is no gross sensory deficit. Gait is normal. Assessment:: Degenerative disc lumbar spine multilevels. Lumbar radiculopathy. Lumbar postlaminectomy syndrome. Lumbar spondylosis. Plan:: Patient doing very well today. She does not request any further injective therapy. However, we did discuss the possibility of her needing lumbar epidural steroid injection 2-3 times per year. [facility] Disclaimer: The information contained in this section may have been updated after the patient was seen, as this information can be updated by other users. Medical History Implantable intrathecal infusion pump present Normal colonoscopy Varicose vein of leg Surgical History History of bilateral knee replacement History of stress incontinence procedure using tension free vaginal tape History of thyroidectomy Hx of tonsillectomy Previous back surgery Family History Other No significant family history Social History Smoking Status: Never smoker second hand exposure: No alcohol intake: never substance use type: denies use current occupational status: other Travel in the last 8 weeks: None household members: spouse housing: house current occupational exposures/hazards: No caffeine: Yes
== END ==
PROVIDERS: PCP Nurse Practitioner Family; Visit Provider Nurse Anesthetist, Certified Registered
DX: M51.16 Intervertebral disc disorders with radiculopathy, lumbar region (principal); M46.1 Sacroiliitis, not elsewhere classified; G89.4 Chronic pain syndrome; M32.9 Systemic lupus erythematosus, unspecified
CPT/HCPCS: 99212; G0463

== ENCOUNTER 2022-12-04 08:21 | Day surgery (SDC) | payer MEDICARE, BC, SELFPAY ==
[2022-12-04 08:29] VITALS: BP 136/67; BP 137/64; PULSE 62; PULSE 67; RESP 20; TEMP 36.6; O2SAT 94; BMI 36.6
--- NOTE | 2022-12-04 09:14 | EXP.PAIN.PRO ---
Procedure Date: 12/04/22 Time: 08:45 Anesthesiologist:: Ministerio Cunningham CRNA Complications:: None Pre-procedure Diagnosis:: Degenerative disc disease lumbar spine multilevels. Lumbar radiculopathy. Lumbar postlaminectomy syndrome. Lumbar spondylosis. Post-procedure Diagnosis:: Same. Indications for Procedure:: Patient is a very pleasant 67-year-old female returns our clinic today for intrathecal pain pump interrogation and refill. Patient is currently being managed with Dilaudid 1 mg/mL at a rate of 0.2180 mg/day. We will be changing the concentration today of Dilaudid to 2.0 mg/mL. Rate will remain the same. Patient does not report any side effects or complications. Patient does report she is doing much better since having her lumbar epidural steroid injection at the L4-5 level several weeks ago. She reports decreasing low back pain as well as left hip and leg radicular symptoms Procedure Details:: Details of the procedure explained to the patient. Patient taken to procedure room placed in the sitting position. The area over the pump is cleansed using chlorhexidine as a cleansing solution. The pump was interrogated. The pump was accessed with ease using 22-gauge inch and half needle. 7.8 mL of solution was withdrawn and discarded appropriately. The pump was then filled incrementally with 20 cc of a solution containing Dilaudid 2 mg/mL. Pump rate will remain at 0.2180 mg/day. Patient tolerated procedure without difficulty. There are no complications. Plan and Disposition:: Patient was discharged without incident.
[2022-12-04 09:28] VITALS: BP 155/75; PULSE 71; RESP 18; O2SAT 95
[2022-12-04 09:31] VITALS: BP 155/75; PULSE 71; RESP 18; O2SAT 95
== END 2022-12-04 09:42 | disposition home or self-care (01) ==
PROVIDERS: PCP Nurse Practitioner Family; Visit Provider Nurse Anesthetist, Certified Registered
DX: M51.16 Intervertebral disc disorders with radiculopathy, lumbar region (principal); M47.26 Other spondylosis with radiculopathy, lumbar region; M96.1 Postlaminectomy syndrome, not elsewhere classified; Z97.8 Presence of other specified devices
CPT/HCPCS: 95991

== ENCOUNTER → 2022-12-24 06:52 | Outpatient (CLI) | payer MEDICARE, BC, SELFPAY | PROVIDERS: PCP Nurse Practitioner Family; Visit Provider Nurse Practitioner Family | DX: N39.0 Urinary tract infection, site not specified (principal); B96.29 Other Escherichia coli [E. coli] as the cause of diseases classified elsewhere; B96.1 Klebsiella pneumoniae [K. pneumoniae] as the cause of diseases classified elsewhere; B96.4 Proteus (mirabilis) (morganii) as the cause of diseases classified elsewhere | CPT/HCPCS: 87086 ==

== ENCOUNTER → 2023-01-17 13:02 | Outpatient (CLI) | payer MEDICARE, BC, SELFPAY | PROVIDERS: PCP Nurse Practitioner Family; Visit Provider Nurse Practitioner Family | DX: R30.0 Dysuria (principal); B96.89 Other specified bacterial agents as the cause of diseases classified elsewhere | CPT/HCPCS: 87086 ==

== ENCOUNTER 2023-02-12 10:34 | Emergency (ER) | payer MEDICARE, BC, SELFPAY ==
[2023-02-12] VITALS (9 sets, daily range): BP systolic 90–125; BP diastolic 42–68; PULSE 74–92; RESP 17–20; TEMP 36.9–37; O2SAT 91–100; BMI 36.4
--- NOTE | 2023-02-12 10:49 | PC.NURSE ---
Dr. Justice at [facility] for pt eval
--- NOTE | 2023-02-12 10:53 | XR_ITS ---
FINAL REPORT CLINICAL HISTORY: dyspnea COMPARISON: None FINDINGS: The heart size is normal. A small to moderate-sized hiatal hernia is present. There is no focal infiltrate or edema. There are no pleural effusions. There is no pneumothorax. There is no osseous abnormality. IMPRESSION: No acute cardiopulmonary process Small to moderate-sized hiatal hernia. Reviewed, Interpreted and Dictated by Benji Kemp MD Transcribed by Marta Lozano Authenticated and [facility]
--- NOTE | 2023-02-12 10:56 | HMH.EDGENADL ---
Discharge Plan Disposition Patient Disposition: Home, Self-Care Prescriptions Prescriptions: New benzonatate 100 mg capsule 100 mg PO TID PRN (Reason: cough) 5 Days Qty: 20 0RF ondansetron 4 mg tablet,disintegrating 4 mg PO Q6H PRN (Reason: nausea and vomiting) 5 Days Qty: 20 0RF Paxlovid 300 mg (150 mg x 2)-100 mg tablets,dose pack See Rx Instructions .ROUTE .COMPLEX Qty: 30 0RF Rx Instructions: take TWO 150 mg tablets of nirmatrelvir with ONE 100 mg tablet of ritonavir twice daily for 5 days No Action levothyroxine 137 mcg tablet 137 mcg PO DAILY Patient Comments: TAKE 1 TABLET BY MOUTH ONCE DAILY losartan-hydrochlorothiazide 50-12.5 mg tablet 1 tab PO DAILY Patient Comments: TAKE 1 TABLET BY MOUTH ONCE DAILY FOR 90 DAYS digestive enzymes (plant) 75 mg capsule 225 mg PO polyethylene glycol 3350 [Miralax] 17 gram/dose powder 17 g PO DAILY esomeprazole magnesium 40 MG capsule,delayed release(DR/EC) 40 mg PO DAILY hydromorphone (PF) 1 MG/ML syringe 0.1 mg intrathecal CONT Rx Instructions: medication delivered via intrathecal pain pump. total volume of pump at refill is 20ml atorvastatin 20 mg tablet 20 mg PO DAILY Referrals Follow up/Referrals: Anjelica Bishop APRN [Primary Care Provider] - See instructions Activity Restrictions/Add. Instructions Additional Instructions/Restrictions: Symptoms are all consistent with a viral syndrome associated with COVID-19 and the treatment is supportive taking Tylenol ibuprofen nausea medicine for nausea prescription of Paxlovid has also been sent to your pharmacy return with any worsening symptoms. Clinical Impressions Clinical Impression: COVID-19, Cough, Headache, Nausea, Malaise Discharge ED Provider: Sepideh Justice General Adult HPI General Chief complaint: Weakness Stated complaint: SOA, cough, weakness Time Seen by Provider: 02/12/23 10:36 History of Present Illness HPI narrative: Patient is a 67-year-old female today sent in by her primary care provider for abnormal lung sounds. Patient states she has just been feeling poor since Saturday. She states that you name the symptoms I got it. When asked to articulate this further she states she has had headache cough nausea body aches and is overall feeling rundown. Denies any fevers or chills. Denies any significant shortness of breath denies any pain anywhere at the moment. Her primary care provider told her that her lungs sounded junky and sent her to the emergency department. Related Data Home Medications Medication Instructions Recorded Confirmed esomeprazole magnesium 40 mg 40 mg PO DAILY GERD 09/13/17 02/12/23 capsule,delayed release polyethylene glycol 3350 17 17 g PO DAILY BOWELS 08/20/18 01/17/23 gram/dose oral powder (Miralax) hydromorphone (PF) 1 mg/mL 0.1 mg intrathecal CONT chronic 04/21/20 02/12/23 injection syringe pain atorvastatin 20 mg tablet 20 mg PO DAILY Cholesterol 10/23/22 02/12/23 levothyroxine 137 mcg tablet 137 mcg PO DAILY 01/17/23 02/12/23 losartan 50 mg-hydrochlorothiazide 1 tab PO DAILY 01/17/23 02/12/23 12.5 mg tablet digestive enzymes (plant) 75 mg 225 mg PO 02/12/23 02/12/23 capsule Previous Rx's Medication Instructions Recorded benzonatate 100 mg capsule 100 mg PO TID PRN cough 5 days #20 02/12/23 caps nirmatrelvir 300 mg (150 mg See Rx Instructions PO .COMPLEX 02/12/23 x2)-ritonavir 100 mg tablet,dose #30 tabs pack (Paxlovid) ondansetron 4 mg disintegrating 4 mg PO Q6H PRN nausea and 02/12/23 tablet vomiting 5 days #20 tabs Allergies Allergy/AdvReac Type Severity Reaction Status Date / Time carisoprodol [From [facility]] Allergy Unknown Verified 02/12/23 10:06 pseudoephedrine Allergy Unknown Verified 02/12/23 10:06 [PSEUDOEPHEDRINE] gabapentin AdvReac Confusion Verified 02/12/23 10:06 indomethacin AdvReac Verified 02/12/23 10:06 [facility] Disclaim
[2023-02-12 10:58] LABS: Influenza A, PCR Not Detected (NotDetected); Influenza B, PCR Not Detected (NotDetected)
[2023-02-12 11:14] LABS: Chloride 99 mmol/L (98-107); Potassium 3.3 mmoL/L (3.5-5.1); Sodium 137 mmol/L (136-145)
[2023-02-12 11:17] LABS: Alanine Aminotransferase 25 U/L (12-78); Albumin Level 4.3 g/dl (3.5-5.0); Albumin/Globulin Ratio 1.3 (1.1-1.8); Alkaline Phosphatase 67 U/L (38-126); Anion Gap 12.3 mEq/L (5-15); Aspartate Amino Transferase 33 U/L (14-36); Bilirubin,Total 1.1 mg/dl (0.2-1.3); Blood Urea Nitrogen 17 mg/dl (7-17); Calcium 8.9 mg/dl (8.4-10.2); Carbon Dioxide 29 mmol/L (22.0-30.0); Creatinine Clearance Estimated 84 mL/min (50-200); Estimated Glomerular Filt Rate 71 ml/min (>60); GFR (African American) 86 ML/MIN (>60); Globulin 3.2 g/dL (1.3-3.2); Glucose 116 mg/dl (74-100); Total Protein,Serum 7.5 g/dl (6.3-8.2)
[2023-02-12 11:18] LABS: Coronavirus 19, PCR Detected (NotDetected)
[2023-02-12 11:18] LABS: Basophils # 0.1 K/mm3 (0-0.2); Basophils % 0.9 % (0.1-2.0); Eosinophils # 0.1 K/mm3 (0.0-0.4); Eosinophils % 0.8 % (0.1-12.0); Hematocrit 46.6 % (37.0-47.0); Hemoglobin 15.8 g/dL (12.2-16.2); Lymphocytes # 1.8 K/mm3 (0.7-4.5); Lymphocytes % 17.8 % (10-50); Mean Corpuscular Hemoglobin 32.4 pg (27.0-31.2); Mean Corpuscular Volume 95.5 fl (81-99); Mean Platelet Volume 10.3 fl (7.4-10.4); Monocytes # 0.7 K/mm3 (0.1-1.0); Monocytes % 6.6 % (1.7-9.3); Neutrophils # 7.3 K/mm3 (1.8-7.8); Neutrophils % 73.8 % (37.0-80.0); Platelet Count 176 K/mm3 (142-424); Red Blood Count 4.88 M/mm3 (4.20-5.40); Red Cell Distribution Width 13.2 % (11.5-17.5); White Blood Count 9.9 K/mm3 (4.8-10.8)
== END 2023-02-12 14:32 | disposition home or self-care (01) ==
PROVIDERS: Emergency Provider Student in an Organized Health Care Education/Training Program; PCP Nurse Practitioner Family
DX: U07.1 COVID-19 (principal); R51.9 Headache, unspecified; R05.9 Cough, unspecified; R11.0 Nausea
CPT/HCPCS: 71045; 80053; 85025; 87636; 96361; 96374; 99285

== ENCOUNTER 2023-03-12 08:56 | Day surgery (SDC) | payer MEDICARE, BC, SELFPAY ==
[2023-03-12 09:25] VITALS: BP 127/64; PULSE 65; RESP 16; TEMP 36.6; O2SAT 94; BMI 36.8
[2023-03-12 09:33] VITALS: BP 136/68; PULSE 66; RESP 18; O2SAT 96
[2023-03-12 09:35] VITALS: BP 136/68; PULSE 66; RESP 18; O2SAT 96
--- NOTE | 2023-03-12 09:40 | EXP.PAIN.PRO ---
Procedure Date: 03/12/23 Time: 09:30 Anesthesiologist:: Ministerio Cunningham CRNA Complications:: None Pre-procedure Diagnosis:: Degenerative disc lumbar spine multilevels. Lumbar radiculopathy. Lumbar postlaminectomy syndrome. Lumbar spondylosis. Post-procedure Diagnosis:: Same. Indications for Procedure:: Patient is a very pleasant 68-year-old female comes our clinic today for intrathecal pain pump interrogation refill. She is currently being managed with Dilaudid 2 mg/mL. Current rate is 0.2180 mg/day. She is doing very well with her current settings. She is not reporting any side effects or complications. She rates her pain today 1/10. Procedure Details:: Details of the procedure explained to the patient. The patient taken procedure room placed in sitting position. The area of the pumps cleansed with chlorhexidine's cleansing solution. The pump was interrogated. The pump was accessed with ease using a 22-gauge inch and half needle. 8.5 mL of solution was withdrawn discarded appropriate. The pump was then filled with 20 cc of a solution containing hydromorphone 2 mg/mL. The rate will continue at 0.2180 mg/day. Patient tolerated procedure without difficulty. There are no complications. Plan and Disposition:: Patient was discharged without incident.
[2023-03-12 09:45] VITALS: BP 142/73; PULSE 66; RESP 16; O2SAT 94
== END 2023-03-12 09:45 | disposition home or self-care (01) ==
PROVIDERS: PCP Nurse Practitioner Family; Visit Provider Nurse Anesthetist, Certified Registered
DX: M51.16 Intervertebral disc disorders with radiculopathy, lumbar region (principal); M96.1 Postlaminectomy syndrome, not elsewhere classified; M47.26 Other spondylosis with radiculopathy, lumbar region; Z97.8 Presence of other specified devices; Z45.1 Encounter for adjustment and management of infusion pump
CPT/HCPCS: 95991

== ENCOUNTER 2023-04-05 10:18 | Outpatient (CLI) | payer MEDICARE, BC, SELFPAY ==
[2023-04-05 10:01] LABS: Microscopic, Urine URINE MICROSCOPIC (MICROSCOPIC)
[2023-04-05 10:42] LABS: Appearance,Urine CLEAR (Clear); Bilirubin,Urine Negative (Negative); Blood, Urine Negative (Negative); Color,Urine YELLOW (Yellow); Glucose,Urine (UA) Negative (Negative); Ketones,Urine Negative (Negative); Leukocyte Esterase,Urine 1+ (Negative); Nitrate,Urine Negative (Negative); PH,Urine 7.5 (5.0-8.5); Protein,Urine Negative (Negative); Specific Gravity, Urine 1.015 (1.005-1.030)
[2023-04-05 10:43] LABS: Basophils # 0.1 K/mm3 (0-0.2); Eosinophils # 0.2 K/mm3 (0.0-0.4); Eosinophils % 3.4 % (0.1-12.0); Hemoglobin 15.7 g/dL (12.2-16.2); Lymphocytes % 34.6 % (10-50); Mean Corpuscular HGB Conc 34.1 g/dL (31.8-35.4); Mean Corpuscular Volume 96.6 fl (81-99); Mean Platelet Volume 11.5 fl (7.4-10.4); Monocytes # 0.4 K/mm3 (0.1-1.0); Monocytes % 6.5 % (1.7-9.3); Neutrophils # 3.2 K/mm3 (1.8-7.8); Neutrophils % 54.5 % (37.0-80.0); Platelet Count 188 K/mm3 (142-424); Red Blood Count 4.76 M/mm3 (4.20-5.40); Red Cell Distribution Width 13.1 % (11.5-17.5); White Blood Count 5.8 K/mm3 (4.8-10.8)
[2023-04-05 10:55] LABS: Total Protein,Urine Random < 5.0 mg/dL (0.0-12.0)
[2023-04-05 10:58] LABS: Bacteria,Urine 2+ /lpf; Mucus,Urine Trace /lpf
[2023-04-05 11:37] LABS: Alanine Aminotransferase 16 U/L (12-78); Albumin/Globulin Ratio 1.7 (1.1-1.8); Alkaline Phosphatase 54 U/L (38-126); Anion Gap 9.4 mEq/L (5-15); Aspartate Amino Transferase 24 U/L (14-36); Bilirubin,Total 0.9 mg/dl (0.2-1.3); Blood Urea Nitrogen 22 mg/dl (7-17); Calcium 9.4 mg/dl (8.4-10.2); Carbon Dioxide 33 mmol/L (22.0-30.0); Chloride 103 mmol/L (98-107); Chol/HDL Ratio 4.5 (1-3.5); Cholesterol 177 mg/dl (140-200); Estimated Glomerular Filt Rate 83 ml/min (>60); GFR (African American) 100 ML/MIN (>60); Globulin 2.4 g/dL (1.3-3.2); Glucose 91 mg/dl (74-100); HDL Cholesterol 39 mg/dl (40-60); Potassium 4.4 mmoL/L (3.5-5.1); Sodium 141 mmol/L (136-145); Total Protein,Serum 6.4 g/dl (6.3-8.2); Triglycerides 225 mg/dl (30-150); VLDL Cholesterol 45 mg/dL (0-40)
[2023-04-05 11:43] LABS: Hemoglobin A1C 5.5 % (4.0-6.0)
[2023-04-05 11:49] LABS: Direct LDL Cholesterol 89.47 mg/dL (100-129)
[2023-04-05 11:54] LABS: Free T4 (Free Thyroxine) 1.14 ng/dl (0.78-2.19)
[2023-04-05 11:57] LABS: 25-OH Vitamin D, Total < 12.8 ng/mL (30-100)
[2023-04-05 12:09] LABS: Thyroid Stimulating Hormone 8.13 uIU/mL (0.465-4.68)
[2023-04-05 12:28] LABS: Vitamin B12 239 pg/mL (239-931)
== END 2023-04-05 23:59 ==
PROVIDERS: PCP Nurse Practitioner Family; Visit Provider Nurse Practitioner Family
DX: I10 Essential (primary) hypertension; E55.9 Vitamin D deficiency, unspecified; R53.83 Other fatigue; E11.9 Type 2 diabetes mellitus without complications; E78.5 Hyperlipidemia, unspecified; E03.8 Other specified hypothyroidism; B96.29 Other Escherichia coli [E. coli] as the cause of diseases classified elsewhere; B96.89 Other specified bacterial agents as the cause of diseases classified elsewhere
CPT/HCPCS: 80053; 80061; 81001; 82306; 82607; 83036; 84155; 84439; 84443; 85025; 87086

== ENCOUNTER 2023-04-11 12:41 | Outpatient (CLI) | payer MEDICARE, BC, SELFPAY ==
--- NOTE | 2023-04-11 12:41 | MM_ITS ---
PROCEDURE INFORMATION: Exam: MG Bilateral Screening 3D Mammography Exam date and time: 04/11/2023 1:01 PM Age: 68 years old Clinical indication: Screening examination TECHNIQUE: Imaging protocol: Bilateral Screening tomosynthesis and 2D mammography including computer-aided detection (CAD) when performed. COMPARISON: 1. MG MM DIG SCREENING MAMM BI W/CAD 11/17/2020 3:10 PM 2. MG MM DIG SCREENING MAMM BI W/CAD 10/30/2019 10:41 AM FINDINGS: MAMMOGRAPHY: Breast composition: There are scattered areas of fibroglandular density. Mass: None. Architectural distortion: None. Calcifications: No suspicious calcifications. Asymmetric density: None. Skin thickening: None. Axillary adenopathy: None. IMPRESSION: No mammographic evidence of malignancy. Annual screening is recommended unless otherwise clinically indicated. ASSESSMENT: BI-RADS Category 1: Negative
== END 2023-04-11 23:59 ==
PROVIDERS: PCP Nurse Practitioner Family; Visit Provider Nurse Practitioner Family
DX: Z12.31 Encounter for screening mammogram for malignant neoplasm of breast (principal)
CPT/HCPCS: 77063; 77067

== ENCOUNTER 2023-04-24 08:54 | Outpatient (CLI) | payer MEDICARE, BC, SELFPAY ==
--- NOTE | 2023-04-24 08:55 | XR_ITS ---
FINAL REPORT TECHNIQUE: Bone mineral density was calculated of the lumbar spine and hip. CLINICAL HISTORY: screening osteoporosis COMPARISON: None FINDINGS: Using L1-4, the bone mineral density of the spine is 1.235 g/cm2, corresponding to T-score of 1.7. Using the left hip, the bone mineral density of the femoral neck is 0.745 g/cm2, corresponding to a T-score of -0.9. NOTE: T-score: Standard deviation compared with peak bone mass of young adult mean. *Following the recommendations of the International Society of Bone densitometry, classification of hip BMD is based on the lower of two T-scores; total hip or femoral neck. IMPRESSION: Normal bone mineral density of the lumbar spine and left hip. Reviewed, Interpreted and Dictated by Jose Wright III, MD Transcribed by Marta Lozano Authenticated and . [facility]
== END 2023-04-24 23:59 ==
PROVIDERS: PCP Nurse Practitioner Family; Visit Provider Nurse Practitioner Family
DX: M81.0 Age-related osteoporosis without current pathological fracture (principal); Z13.820 Encounter for screening for osteoporosis
CPT/HCPCS: 77080

== ENCOUNTER 2023-05-01 15:41 | Outpatient (CLI) | payer MEDICARE, BC, SELFPAY ==
[2023-05-01 18:01] LABS: Free T4 (Free Thyroxine) 1.58 ng/dl (0.78-2.19)
[2023-05-01 18:14] LABS: Thyroid Stimulating Hormone 3.63 uIU/mL (0.465-4.68)
== END 2023-05-01 23:59 ==
PROVIDERS: PCP Nurse Practitioner Family; Visit Provider Nurse Practitioner Family
DX: E03.8 Other specified hypothyroidism (principal)
CPT/HCPCS: 36415; 84439; 84443

== ENCOUNTER 2023-06-18 12:59 | Day surgery (SDC) | payer MEDICARE, BC, SELFPAY ==
[2023-06-18 13:18] VITALS: BP 127/68; PULSE 67; RESP 18; TEMP 36.8; O2SAT 97; BMI 37.0
[2023-06-18 13:36] VITALS: BP 145/49; PULSE 68; RESP 18; O2SAT 97
--- NOTE | 2023-06-18 13:48 | EXP.PAIN.PRO ---
Procedure Date: 06/18/23 Time: 13:30 Anesthesiologist:: Ministerio Cunningham CRNA Complications:: None Pre-procedure Diagnosis:: Degenerative disc lumbar spine multilevels. Lumbar radiculopathy. Lumbar postlaminectomy syndrome. Lumbar spondylosis. Post-procedure Diagnosis:: Same. Indications for Procedure:: Patient is a very pleasant 68-year-old female comes our clinic today for intrathecal pain pump interrogation refill. She is currently being managed with Dilaudid 2 mg/mL at a rate of 0.2180 mg/day. Patient reporting some increase in the low back pain with some radicular symptoms bilaterally. She is requesting increase in the intrathecal pain pump rate. I think this is reasonable. Will increase her by 10%. Patient does not report any side effects or complications with intrathecal pain pump management. Procedure Details:: Details of the procedure explained to the patient. The patient taken procedure room placed in the sitting position. The area over the pump was cleaned using chlorhexidine as a cleansing solution. The pump was interrogated. The pump was accessed with ease using a 22-gauge inch and half needle. 9 mL of solution was withdrawn discarded appropriate. The pump was then filled with 20 cc of a solution containing hydromorphone 2 mg/mL. The rate will be increased by 20%. Patient's new intrathecal rate will be 0.2400 mg/day. Plan and Disposition:: Patient tolerated procedure without difficulty. There are no complications.
[2023-06-18 13:52] VITALS: BP 151/73; PULSE 64; RESP 18; O2SAT 97
[2023-06-18 15:01] LABS: Barbiturates Screen,Urine Negative ng/ml (<200); Benzodiazepines Screen,Urine Negative ng/ml (<200)
[2023-06-18 15:03] LABS: Cocaine Screen,Urine Negative ng/ml (<300); Methadone Screen,Urine Negative ng/ml (<300)
[2023-06-18 15:05] LABS: Phencyclidine Screen,Urine Negative ng/ml (<25)
[2023-06-18 15:08] LABS: Amphetamine/Metha Screen,Urine Negative ng/ml (<1000)
[2023-06-18 15:09] LABS: Cannabinoid Screen,Urine Negative ng/ml (<50)
[2023-06-18 15:10] LABS: Opiate Screen,Urine Negative ng/ml (<300)
== END 2023-06-18 13:52 | disposition home or self-care (01) ==
PROVIDERS: Anesthesiology; PCP Nurse Practitioner Family; Visit Provider Nurse Anesthetist, Certified Registered
DX: M51.16 Intervertebral disc disorders with radiculopathy, lumbar region (principal); M96.1 Postlaminectomy syndrome, not elsewhere classified; M47.26 Other spondylosis with radiculopathy, lumbar region; Z97.8 Presence of other specified devices; Z45.1 Encounter for adjustment and management of infusion pump
CPT/HCPCS: 62370; 80307

== ENCOUNTER 2023-09-17 08:38 | Day surgery (SDC) | payer MEDICARE, BC, SELFPAY ==
[2023-09-17 08:49] VITALS: BP 110/59; PULSE 72; RESP 18; TEMP 36.2; O2SAT 93; BMI 36.9
[2023-09-17 08:58] VITALS: BP 140/68; PULSE 68; RESP 18; O2SAT 94
[2023-09-17 08:59] VITALS: BP 140/68; PULSE 70; RESP 18; O2SAT 94
[2023-09-17 09:08] VITALS: BP 129/55; PULSE 69; RESP 16; O2SAT 95
--- NOTE | 2023-09-17 09:09 | EXP.PAIN.PRO ---
Procedure Date: 09/17/23 Time: 09:00 Anesthesiologist:: Ministerio Cunningham CRNA Complications:: None Pre-procedure Diagnosis:: Degenerative disc lumbar spine multilevels. Lumbar radiculopathy. Lumbar postlaminectomy syndrome. Lumbar spondylosis. Post-procedure Diagnosis:: Same. Indications for Procedure:: Patient is a pleasant 68-year-old female comes our clinic today for intrathecal pain pump interrogation and refill. She is currently being managed with Dilaudid 2 mg/mL at a rate of 0.2400 mg/day. She is doing very well with her current settings. She is not reporting requesting any changes. She does not report any side effects or complications. Procedure Details:: Details of the procedure were explained to the patient. The patient was taken to procedure room placed in the sitting position. They over the pumps cleansed using chlorhexidine as a cleansing solution. The pump was interrogated. The pump was accessed with ease using a 22-gauge inch and half needle. 9 mL of solution was withdrawn discarded appropriate. The pump was then filled with 20 cc of solution containing Dilaudid 2 mg/mL. The rate will continue the same 0.2400 mg/day. Patient tolerated procedure without difficulty. No complications. Plan and Disposition:: Patient was discharged without incident.
== END 2023-09-17 09:08 | disposition home or self-care (01) ==
PROVIDERS: PCP Nurse Practitioner Family; Visit Provider Nurse Anesthetist, Certified Registered
DX: Z79.891 Long term (current) use of opiate analgesic (principal); M51.36 Other intervertebral disc degeneration, lumbar region; M96.1 Postlaminectomy syndrome, not elsewhere classified; M47.26 Other spondylosis with radiculopathy, lumbar region; G89.29 Other chronic pain
CPT/HCPCS: 95991

== ENCOUNTER 2023-10-30 07:37 | Day surgery (SDC) | payer MEDICARE, BC, SELFPAY ==
[2023-10-28 07:35] VITALS: BMI 40.2
[2023-10-30 07:55] VITALS: BP 151/68; PULSE 82; RESP 16; TEMP 36.1; O2SAT 97
--- NOTE | 2023-10-30 08:14 | P.PNANES_ITS ---
[facility] Disclaimer: The information contained in this section may have been updated after the patient was seen, as this information can be updated by other users. Medical History Meniscal injury COVID-19 Malaise Nausea Headache Cough Lower respiratory infection Urinary tract infection Dysuria Varicose vein of leg Normal colonoscopy Implantable intrathecal infusion pump present Surgical History Hx of varicose vein ligation and stripping Hx of arthroscopy of right knee History of hysterectomy H/O arthroscopy of left knee History of cholecystectomy History of esophagogastroduodenoscopy (EGD) History of colonoscopy Previous back surgery History of stress incontinence procedure using tension free vaginal tape History of thyroidectomy Hx of tonsillectomy History of bilateral knee replacement Family History Father History of cancer Mother History of cancer Brother History of diabetes mellitus Social History Smoking Status: Never smoker second hand exposure: No alcohol intake: never substance use type: denies use current occupational status: other Travel in the last 8 weeks: None household members: spouse housing: house current occupational exposures/hazards: No caffeine: Yes [facility] Anesthesia Checklist Patient Identification Patient Identification: Arm Band, Family and Verbal (Name & ) Structural Data Admitted From: Home Planned Operative Procedure/s: Colonoscopy Consent for Planned Operative Procedure(s) Verified: Yes Verified Documents: Surgical Consent and History and Physical NPO Status Verified Time NPO: 01:00 Chart Verification Results Verified: CBC, BMP and Chest Xray Additional verifications Patient : No Anesthesia Reactions: No Hx Blood Transfusions: No Blood Transfusion Reaction: No Previous Colonoscopy: Yes Cardiovascular Assessment Heart Sounds: S1 & S2 Pulse Rhythm: Irregular Peripheral Edema: No Airway Assessment Mallampati Score:: Class II C-Spine Mobility Assessed: Yes (FROM demonstrated) TMJ Mobility Assessed: Yes Dentition: Poor Dentition (Carried. Nothing loose per pt.) Neurological Assessment Level of Consciousness: Awake, Alert, Appropriate and Follows Commands Hx Seizures: No Numbness or tingling in extremities: No Anesthesia Plan Anesthesia Risk discussed: Yes Anesthesia Plan: Verified ASA Class: III Anesthesia Type: MAC
[2023-10-30] MEDS: LACTATED RINGERS 1000ML 1,000 ML 25 ML IV (08:34)
[2023-10-30 08:49] VITALS: O2SAT 95
--- NOTE | 2023-10-30 09:08 | P.PCN_ITS ---
Procedure: Date: 10/30/23 Patient Date of :: 1955 Procedure Performed:: Colonoscopy Indications:: The patient is a 68-year-old who presents for surveillance colonoscopy for history of polyps in the past. There is a history of rectal cancer in first- degree relative (sister) Performing Provider:: Shane Jackson MD Referring Provider:: Anjelica Bishop APRN Sedation:: See RN records Procedure:: After placing the patient in the left lateral decubitus position, the colonoscopy was gently inserted into the rectum and under direct visualization advanced to the cecum which was identified by transillumination in the right lower quadrant, identification of the ileocecal valve, appendiceal orifice, and cecal strap. Color, texture, mucosa, and anatomy of the colon were carefully examined with the scope. Findings:: The quality of the bowel preparation was good. There was a sessile polyp measuring less than 5 mm in size in the descending colon. The polyp was removed by cold forceps. The polyp was retrieved and resection was complete. The remaining colon appeared normal. On retroflexion view of the rectum small internal hemorrhoids were seen. The procedure was somewhat difficult secondary to a tortuous colon. Impression: Polyp of the descending colon Recommendations:: Await pathology results Repeat colonoscopy in 5 years for surveillance purposes Complications:: None Estimated blood obtained (mL): 0 Colonoscopy Component Colonoscopy Component Was a colonoscopy performed during today's procedure?: Yes Recommended follow up colonoscopy of at least 10 years?: Yes
[2023-10-30 09:09] VITALS: BP 96/54; PULSE 67; RESP 18; TEMP 36.2; O2SAT 94
[2023-10-30 09:19] VITALS: BP 111/57; PULSE 61; RESP 18; O2SAT 93
[2023-10-30 09:29] VITALS: BP 120/65; PULSE 61; RESP 18; O2SAT 96
[2023-10-30 09:59] VITALS: BP 134/62; PULSE 58; RESP 18; O2SAT 98
== END 2023-10-30 10:05 | disposition home or self-care (01) ==
PROVIDERS: PCP Nurse Practitioner Family; Visit Provider Internal Medicine
PROC: (CPT 45380; principal; 2023-10-30 09:00)
DX: Z86.010 Personal history of colon polyps (principal); Z80.0 Family history of malignant neoplasm of digestive organs; D12.4 Benign neoplasm of descending colon; K64.8 Other hemorrhoids
CPT/HCPCS: 45380; J7120

== ENCOUNTER 2023-12-31 09:02 | Day surgery (SDC) | payer MEDICARE, BC, SELFPAY ==
[2023-12-31 09:18] VITALS: BP 134/68; PULSE 76; RESP 16; TEMP 36.8; O2SAT 97; BMI 36.6
--- NOTE | 2023-12-31 09:45 | P.PCN_ITS ---
Procedure Date: 12/31/23 Time: 09:40 Anesthesiologist:: Ministerio Cunningham CRNA Complications:: None Pre-procedure Diagnosis:: Degenerative disc lumbar spine multilevels. Lumbar radiculopathy. Lumbar postlaminectomy syndrome. Lumbar spondylosis. Post-procedure Diagnosis:: Same. Indications for Procedure:: Patient is a very pleasant 68-year-old female who comes our clinic today for intrathecal pain pump interrogation and refill. Patient currently being managed with hydromorphone 2 mg/mL at a rate of 0.2400 mg/day. She is doing very well with her current status. She is not reporting side effects or complications. She not requesting changes. Patient is awake alert [place] x 3. No acute distress. Flexion-extension lumbar spine somewhat guarded secondary to pain. Deep tendon reflexes upper and lower extremities normal. Motor strength upper and lower extremities normal. There i s no gross sensory deficit. Gait is normal. Procedure Details:: Details of the procedure explained to the patient. The patient taken procedure room placed in sitting position. The area over the pumps cleansed using chlorhexidine as a cleansing solution. The pump was interrogated. The pump was accessed with ease using a 22-gauge inch and half needle. 7 mL of solution was withdrawn discarded appropriate. The pump was then filled with 20 cc of solution containing hydromorphone 2 mg/mL. The pump rate will continue at 0.2400 mg/day. Patient tolerated procedure without difficulty. No complications. Plan and Disposition:: Patient was discharged without incident.
[2023-12-31 09:46] VITALS: BP 118/72; PULSE 71; RESP 16; O2SAT 96
== END 2023-12-31 09:46 | disposition home or self-care (01) ==
PROVIDERS: PCP Nurse Practitioner Family; Visit Provider Nurse Anesthetist, Certified Registered
DX: M51.16 Intervertebral disc disorders with radiculopathy, lumbar region (principal); M96.1 Postlaminectomy syndrome, not elsewhere classified; M47.26 Other spondylosis with radiculopathy, lumbar region
CPT/HCPCS: 95991

== ENCOUNTER 2024-04-03 08:39 | Day surgery (SDC) | payer MEDICARE, BC, SELFPAY ==
--- NOTE | 2024-04-03 08:42 | EXP.PAIN.PRO ---
Procedure Date: 04/03/24 Time: 09:22 Anesthesiologist:: Roxanna Marquez APRN Complications:: None Pre-procedure Diagnosis:: Degenerative disc disease of lumbar spine with lumbar radiculopathy symptoms Post-procedure Diagnosis:: Same Indications for Procedure:: Patient is a pleasant 69-year-old female who presents today for intrathecal refill and reprogram. Today she rates her pain 2 out of 10. She denies any new trauma or injury. Patient states overall she is doing really well and denies any side effects from her intrathecal pump. Patient is currently managed with Dilaudid 2 mg/mL with a daily dose of 0.24 mg/day. Her Jerry has been reviewed and is appropriate Physical Exam: General: Alert and oriented x3, no acute distress, pleasant and cooperative Lungs: Respirations even and unlabored, symmetrical chest expansion Eyes: PERRL Musculoskeletal: Flexion and extension of lumbar [spine] somewhat guarded secondary to pain, [antalgic gait noted] Neurological: Speech clear, no gross sensory deficit Procedure Details:: Informed consent was obtained and the risk and benefits of the procedure were explained to the patient. The patient had noninvasive monitoring placed including noninvasive blood pressure cuff and pulse oximeter. Patient's pump was interrogated. The area over the pump was cleansed with chlorhexidine as a cleansing solution. In sterile fashion the pump was accessed with a 22-gauge needle. Approximately 9 mls of the pump solution was removed and discarded appropriately. The pump was then refilled with 20 mL's of Dilaudid 2 mg/mL. The needle was withdrawn and a bandage was placed over the puncture site. The infusion rate was reprogrammed and continued at Dilaudid 0.24 mg/day. The patient tolerated well with no complication. Plan and Disposition:: Patient tolerated the procedure well with no complications and was discharged neurologically intact. Patient will return to clinic on or before their next intrathecal refill date. We will see the patient back in the clinic at the next intrathecal refill. Patient has been instructed to contact the clinic with any concerns before the next appointment. Dr. Nieto has reviewed this note and agrees with this plan of care. This note was dictated using voice recognition software and make contain errors or omissions. -- It Is medically necessary for this patient to continue to have their intrathecal pump refilled at regular intervals. This patient had an intrathecal pain pump implanted after meeting criteria of chronic intractable pain for greater than 3 months and failing conservative treatments. Patient has committed and been compliant to the treatment plan and all planned follow up care. Since implantation of the intrathecal pain pump, the patient has had decreased pain and been more functional. Oral medications have been reduced including intake of oral opioids. Patient continues to do well with intrathecal therapy with decrease in pain symptoms and increase in functional status. Stopping intrathecal medications can lead to life threatening withdrawal, seizures, cardiac arrest, severe pain, and possible . Pumps that are not refilled at regular intervals can be damages and cause and need for replacement. We continually titrate dose and concentration to optimize pain relief and function. We are limited in concentration for certain drugs to safely deliver medications through the pump and stay within the recommendations from the Polyanalgesic Consensus Committee Guidelines. Depending on dose and concentration these pumps may need to be refilled sooner than 3 months as we titrate. A UDS is needed to verify patient's compliance with our office pain contract. This is ordered based off specific treatments related to chronic pain with the potential to abuse certain medications.
[2024-04-03 09:01] VITALS: BP 137/102; PULSE 74; RESP 16; TEMP 36.8; O2SAT 97; BMI 36.6
[2024-04-03 09:18] VITALS: BP 113/65; PULSE 71; RESP 18; O2SAT 95
[2024-04-03 09:19] VITALS: BP 113/65; PULSE 71; RESP 18; O2SAT 95
[2024-04-03 09:28] VITALS: BP 159/80; PULSE 68; RESP 16; O2SAT 94
== END 2024-04-03 09:28 | disposition home or self-care (01) ==
LOC: SC.PAINP 08:43 → SC.PAIN 08:52
PROVIDERS: PCP Nurse Practitioner Family; Visit Provider Nurse Practitioner Family
DX: M51.16 Intervertebral disc disorders with radiculopathy, lumbar region (principal)
CPT/HCPCS: 62370

== ENCOUNTER 2024-06-05 09:01 | Outpatient (CLI) | payer MEDICARE, BC, SELFPAY ==
[2024-06-05 09:10] LABS: Microscopic, Urine URINE MICROSCOPIC (MICROSCOPIC)
[2024-06-05 09:32] LABS: Basophils # 0.1 K/mm3 (0-0.2); Basophils % 1.3 % (0.1-2.0); Eosinophils # 0.3 Kmm3 (0.0-0.4); Eosinophils % 5.7 % (0.1-12.0); Hemoglobin 15.2 g/dL (12.2-16.2); Lymphocytes # 1.9 K/mm3 (0.7-4.5); Lymphocytes % 35.2 % (10-50); Mean Corpuscular Hemoglobin 31.5 pg (27.0-31.2); Mean Corpuscular Volume 95.2 fl (81-99); Mean Platelet Volume 11.8 fl (7.4-10.4); Monocytes # 0.5 K/mm3 (0.1-1.0); Monocytes % 8.8 % (1.7-9.3); Neutrophils # 2.7 K/mm3 (1.8-7.8); Neutrophils % 48.8 % (37.0-80.0); Nucleated Red Blood Cells # 0 10^3/uL; Nucleated Red Blood Cells % 0 %; Platelet Count 187 K/mm3 (142-424); Red Blood Count 4.83 M/mm3 (4.20-5.40); Red Cell Distribution Width 12.3 % (11.5-17.5); Red Cell Distribution Width-SD 42.6 fL; White Blood Count 5.4 K/mm3 (4.8-10.8)
[2024-06-05 09:34] LABS: Appearance,Urine SL CLOUDY (Clear); Bilirubin,Urine Negative (Negative); Blood, Urine TRACE-I (Negative); Color,Urine YELLOW (Yellow); Glucose,Urine (UA) Negative (Negative); Ketones,Urine Negative (Negative); Leukocyte Esterase,Urine 2+ (Negative); Nitrate,Urine POSITIVE (Negative); Protein,Urine Negative (Negative); Specific Gravity, Urine 1.015 (1.005-1.030)
[2024-06-05 09:59] LABS: Bacteria,Urine 4+ /lpf; RBC,Urine Occasional #/hpf (0-3)
[2024-06-05 10:09] LABS: 25-OH Vitamin D, Total 23.6 ng/mL (30-100)
[2024-06-05 10:14] LABS: Chloride 100 mmol/L (98-107); Potassium 3.9 mmoL/L (3.5-5.1); Sodium 138 mmol/L (136-145)
[2024-06-05 10:16] LABS: Blood Urea Nitrogen 24 mg/dl (7-17); Estimated Glomerular Filt Rate 83 ml/min (>60); GFR (African American) 100 ML/MIN (>60)
[2024-06-05 10:17] LABS: Alanine Aminotransferase 20 U/L (12-78); Albumin/Globulin Ratio 1.4 (1.1-1.8); Alkaline Phosphatase 47 U/L (38-126); Anion Gap 10.9 mEq/L (5-15); Aspartate Amino Transferase 30 U/L (14-36); Bilirubin,Total 0.9 mg/dl (0.2-1.3); Calcium 9.3 mg/dl (8.4-10.2); Carbon Dioxide 31 mmol/L (22.0-30.0); Cholesterol 161 mg/dl (140-200); Globulin 2.9 g/dL (1.3-3.2); Glucose 98 mg/dl (74-100); Iron 120 ug/dL (37-170); Total Protein,Serum 6.9 g/dl (6.3-8.2); Triglycerides 203 mg/dl (30-150); VLDL Cholesterol 41 mg/dL (0-40)
[2024-06-05 10:18] LABS: Chol/HDL Ratio 3.7 (1-3.5); HDL Cholesterol 44 mg/dl (40-60); Magnesium 1.6 mg/dl (1.6-2.3)
[2024-06-05 10:28] LABS: Total Iron Binding Capacity 275 ug/dL (265-497)
[2024-06-05 10:29] LABS: Direct LDL Cholesterol 82.35 mg/dL (100-129)
[2024-06-05 10:49] LABS: Thyroid Stimulating Hormone 3.68 uIU/mL (0.465-4.68)
[2024-06-05 10:53] LABS: Ferritin 128 ng/ml (11.1-264)
[2024-06-05 10:58] LABS: HIV Combo NEGATIVE (Negative)
[2024-06-05 10:59] LABS: Hepatitis C Ab Qual. W/ RFX NEGATIVE (Negative)
[2024-06-05 11:29] LABS: Hemoglobin A1C 5.6 % (4.0-6.0)
[2024-06-05 11:34] LABS: Vitamin B12 339 pg/mL (239-931)
== END 2024-06-05 23:59 | disposition home or self-care (01) ==
LOC: LAB 09:02
PROVIDERS: PCP Nurse Practitioner Family; Visit Provider Nurse Practitioner Family
DX: E55.9 Vitamin D deficiency, unspecified (principal); Z12.31 Encounter for screening mammogram for malignant neoplasm of breast; E03.9 Hypothyroidism, unspecified; R53.83 Other fatigue; G47.33 Obstructive sleep apnea (adult) (pediatric); R41.3 Other amnesia; Z13.1 Encounter for screening for diabetes mellitus; Z11.4 Encounter for screening for human immunodeficiency virus [HIV]; Z11.59 Encounter for screening for other viral diseases
CPT/HCPCS: 36415; 80053; 80061; 81001; 82306; 82607; 82728; 83036; 83540; 83550; 83735; 84156; 84439; 84443; 85025; 86803; 87086; 87088; 87186; 87389

== ENCOUNTER 2024-06-12 14:53 | Outpatient (CLI) | payer MEDICARE, BC, SELFPAY ==
--- NOTE | 2024-06-12 15:15 | CA_ITS ---
APPROVED REPORT EXAM: Comprehensive 2D, Doppler, and color-flow Echocardiogram Miner: Jacque Stubbs, HENOK, RVS Ht: 5 ft 5 in Wt: 231lbs BSA: 2.10 BP: 118/62 mmHg Indications: HTN, Fatigue, HLD, Edema 2D Dimensions IVSd 0.94 cm F: 0.6-1.0 LVEF (Visual) 60.20 % PWd 1.09 cm F: 0.6 - 1.0 LA Volume 75.90 mL LVDd 3.69 cm F: 3.9 - 5.3 LA Volume Index 36.164634 mL/m2 (M/F) 16-34 LVDs 2.53 cm F: 2.2 - 3.5 Left Atrium 1.85 cm F: 2.7 - 3.8 M-Mode Dimensions LA Diam 4.27 cm (1.9-4.0) EPSs 0.54 cm TAPSE 2.87 (<1.7) LV Diastology E Decel Time 273 (160-240 msec) E/A Ratio 0.74 MED A' 9.20 cm/s LAT A' 9.80 cm/s Aortic Valve YASMIN Index 1.03 cm2/m2 AoV Peak Talon. 162.0 (50-130 cm/s) AI PHT 422.00 ms AO Peak GR. 10.40 mmHg AO Mean GR. 6.00 (<5 mmHg) AO VTI 38.2 (18-25 cm) YASMIN (VTI) 2.21 (2.5-4.5 cm2) Mitral Valve MV A Velocity 72.0 (40-130 cm/s) E/A Ratio 0.74 Pulmonary Valve HI End VMAX 98.0 cm/s Tricuspid Valve TR P. Velocity 189.00 cm/s Left Ventricle The left ventricle is normal size. The left ventricular systolic function is normal. The left ventricular ejection fraction is within the normal range. There is increased LV wall thickness. Diastolic function is indeterminate. There is normal LV segmental wall motion. LVEF is 55%. Right Ventricle The right ventricle is normal size. The right ventricular systolic function is normal. Atria Left atrium is mildly dilated. Right atrium is mildly dilated. There is no Doppler evidence of interatrial shunt. Aortic Valve The aortic valve is mildly thickened. There is no aortic valvular stenosis. Moderate aortic regurgitation. Mitral Valve The mitral valve is normal in structure. No evidence of mitral valve stenosis. Mild mitral regurgitation. Tricuspid Valve Tricuspid valve is grossly normal in structure and function. Trace tricuspid regurgitation. There is insufficient TR jet to estimate RVSP. Pulmonic Valve The pulmonary valve is normal in structure. Trace pulmonic regurgitation. Great Vessels The aortic root is normal in size. IVC is normal in size and collapses >50% with inspiration. Pericardium There is no pericardial effusion. Other Information Study Quality: Fair Conclusion Normal biventricular systolic function. Mild biatrial dilation. Moderate AI. Mild MR. Electronically signed by : Milagros Bhardwaj MD 06/21/2024 14:55:49
--- NOTE | 2024-06-12 16:00 | MM_ITS ---
PROCEDURE INFORMATION: Exam: MG Bilateral Screening 3D Mammography Exam date and time: 06/12/2024 3:24 PM Age: 69 years old Clinical indication: Screening. No family history of breast cancer. TECHNIQUE: Imaging protocol: Bilateral Screening tomosynthesis and 2D mammography including computer-aided detection (CAD) when performed. COMPARISON: 1. MG MM DIG SCREENING MAMM BI W/CAD 04/11/2023 1:01 PM 2. MG MM DIG SCREENING MAMM BI W/CAD 11/17/2020 3:10 PM 3. MG MM DIG SCREENING MAMM BI W/CAD 10/30/2019 10:41 AM 4. MG MM DIG SCREENING MAMM BI W/CAD 10/27/2018 10:07 AM FINDINGS: MAMMOGRAPHY: Breast composition: There are scattered areas of fibroglandular density. Mass: No suspicious mass. Architectural distortion: None. Calcifications: No suspicious calcifications. Asymmetric density: None. Skin thickening: None. Axillary adenopathy: None. IMPRESSION: No mammographic evidence of malignancy. Annual screening is recommended unless otherwise clinically indicated. ASSESSMENT: BI-RADS Category 1: Negative.
== END 2024-06-12 23:59 | disposition home or self-care (01) ==
LOC: RT 14:54
PROVIDERS: PCP Nurse Practitioner Family; Visit Provider Nurse Practitioner Family
DX: Z12.31 Encounter for screening mammogram for malignant neoplasm of breast (principal); I51.7 Cardiomegaly; I34.0 Nonrheumatic mitral (valve) insufficiency; I35.1 Nonrheumatic aortic (valve) insufficiency
CPT/HCPCS: 77063; 77067; 93306

== ENCOUNTER 2024-06-26 08:59 | Day surgery (SDC) | payer MEDICARE, BC, SELFPAY ==
[2024-06-26 09:08] VITALS: BP 113/68; PULSE 64; RESP 16; TEMP 36.5; O2SAT 96; BMI 37.9
[2024-06-26 09:11] VITALS: BP 127/82; PULSE 71; RESP 18; O2SAT 96
--- NOTE | 2024-06-26 09:25 | P.HP_ITS ---
History of Present Illness *Admission Date: 06/26/24 *Reason for visit:: Degenerative disc disease; intrathecal refill *History of present illness: Same [facility] Disclaimer: The information contained in this section may have been updated after the patient was seen, as this information can be updated by other users. Medical History (Updated 06/26/24 @ 09:26 by Roxanna Marquez APRN) Encounter for hepatitis C screening test for low risk patient Screening for HIV (human immunodeficiency virus) Need for tetanus booster Meniscal injury COVID-19 Malaise Nausea Headache Cough Lower respiratory infection Urinary tract infection Dysuria Varicose vein of leg Normal colonoscopy Implantable intrathecal infusion pump present Surgical History Hx of varicose vein ligation and stripping Hx of arthroscopy of right knee History of hysterectomy H/O arthroscopy of left knee History of cholecystectomy History of esophagogastroduodenoscopy (EGD) History of colonoscopy Previous back surgery History of stress incontinence procedure using tension free vaginal tape History of thyroidectomy Hx of tonsillectomy History of bilateral knee replacement Family History Father History of cancer Mother History of cancer Brother History of diabetes mellitus Social History Smoking Status: Never smoker second hand exposure: No alcohol intake: never substance use type: denies use current occupational status: other Travel in the last 8 weeks?: None household members: spouse housing: house current occupational exposures/hazards: No caffeine: Yes Have you lived/traveled outside [place] in past 30 days?: No Contact w/someone who lives/traveled outside [place] past 30 days?: No Exposure to someone with infectious disease in past 14 days?: No Do you have a fever (greater than 100.4 F or 38 C)?: No Have you tested positive for COVID-19?: No Exposed to someone with COVID-19 in past 14 days?: No Do you have a sore throat?: No Do you have a cough?: No Do you have any weakness?: No Do you have any diarrhea?: No Are you experiencing any unusual bleeding?: No Do you have any muscle aches/pain?: No Do you have any abdominal pain?: No Are you experiencing loss of taste or smell?: No Other Medical History Have you received the Flu Vaccine for this season: No Have you received the Pneumonia Vaccine: No Review of Systems Review of Systems Review of systems:: pertinent systems reviewed and negative unless documented below Review of systems (narrative): Review of Systems: General: No recent weight changes, no fever, no sleep disturbances Respiratory: No cough, no shortness of air, no recurring pulmonary infections Cardiovascular/peripheral vascular: No chest pain, no palpitations, no edema, no shortness of breath Gastrointestinal: No new onset incontinence, normal bowel movements reported Genitourinary: No new onset incontinence Musculoskeletal: Chronic back pain Psychiatric: [Normal mood/affect] Neurological: [Denies weakness in extremities], [denies balance issues] Meds Home Medications and Allergies Home Medications ?Medication ?Instructions ?Recorded ?Confirmed ?Type polyethylene glycol 3350 17 17 g PO DAILY BOWELS 08/20/18 06/26/24 History gram/dose oral powder (Miralax) hydromorphone (PF) 1 mg/mL 0.1 mg intrathecal CONT chronic 04/21/20 06/26/24 History injection syringe pain calcium polycarbophil 625 mg 1,250 mg PO TID 04/02/23 06/26/24 History tablet (FiberCon) atorvastatin 20 mg tablet 20 mg PO DAILY Cholesterol #90 tabs 06/01/24 06/26/24 Rx cetirizine 10 mg tablet 10 mg PO DAILY #90 tabs 06/01/24 06/26/24 Rx esomeprazole magnesium 40 mg 40 mg PO DAILY GERD #90 caps 06/01/24 06/26/24 Rx capsule,delayed release levothyroxine 150 mcg tablet 150 mcg PO DAILY #90 tabs 06/01/24 06/26/24 Rx losartan 50 mg-hydrochlorothiazide 1 tab PO DAILY #90 tabs 06/01/24 06/26/24 Rx 12.5 mg tablet cholecalciferol (vitamin D3) 50 50 mcg PO DAILY #90 caps 06/07/24 06/26/24 Rx mcg (2,000 unit) capsule nitrofurantoin 100 mg PO Q12H 7 days #14 caps 06/07/24 06/26/24 Rx monohydrate/macrocrystals 100 mg capsule (Macrobid) New Prescriptions to Start Prescriptions: Allergies Allergy/AdvReac Type Severity Reaction Status Date / Time carisoprodol (From [facility]) Allergy Unknown Unknown Verified 10/30/23 07:52 allergy reaction pseudoephedrine Allergy Unknown Unknown Verified 10/30/23 07:52 (PSEUDOEPHEDRINE) allergy reaction gabapentin AdvReac Confusion Verified 10/30/23 07:52 indomethacin AdvReac Unknown Verified 10/30/23 07:52 allergy reaction Exam Data for Last 24 hours Vital signs and Labs for Last 24 Hours: Temp Pulse Resp BP Pulse Ox O2 Del Method 97.7 F 71 18 127/82 96 Room Air 06/26/24 09:08 06/26/24 09:11 06/26/24 09:11 06/26/24 09:11 06/26/24 09:11 06/26/24 09:11 I & O for Last 24 hours: Intake & Output 06/23/24 06/24/24 06/25/24 06/26/24 23:59 23:59 23:59 23:59 Weight 228 lb Constitutional Constitutional: no acute distress *Routine HEENT Exam Head: Present normocephalic and atraumatic Eye: Present PERRL ENT: Present mucous membranes moist *Routine Neck Exam Neck: Present supple *Routine Respiratory Exam Respiratory: Present CTA bilaterally *Routine Cardiovascular Exam Cardiovascular: Present RRR *Routine Abdominal Exam Abdominal: Present soft *Routine Rectal Exam Rectal:: deferred *Routine Genitalia Exam Genitalia:: normal female Routine Back/Spine/Pelvis Exam Back/Spine: Present pain with flexion *Routine Skin Exam Skin: Present intact *Routine Neurological Exam Neurological: Present alert and oriented X3 Routine Psychiatric Exam Psychiatric: Present normal affect and normal thought process Assessment and Plan *Assessment and plan (1) Degenerative disc disease: Status: Acute Category: Medical Plan Patient has been instructed to contact the clinic with any concerns before the next appointment. Dr. Nieto has reviewed this note and agrees with this plan of care. This note was dictated using voice recognition software and make contain errors or omissions. All injections are used with Lidocaine, Bupivacaine and dexamethasone. Occasionally urine drug screen is needed to verify patient's compliance with our office pain contract. This is ordered based off specific treatments related to chronic pain with the potential to abuse certain medications.
--- NOTE | 2024-06-26 09:27 | EXP.PAIN.PRO ---
Procedure Date: 06/26/24 Time: :27 Anesthesiologist:: Roxanna Marquez APRN Complications:: None Pre-procedure Diagnosis:: Degenerative disc disease of lumbar spine with lumbar radiculopathy symptoms Post-procedure Diagnosis:: Same Indications for Procedure:: Patient is a pleasant 69-year-old female who presents today for intrathecal refill and reprogram. Today she rates her pain a 5 out of 10. She denies any new falls or injuries. She does state that she has been having more overall back pain. Patient is currently managed with Dilaudid 2 mg/mL with a daily dose of 0.24 mg/day. She denies any side effects. Her Jerry has been reviewed and is appropriate. Physical Exam: General: Alert and oriented x3, no acute distress, pleasant and cooperative Lungs: Respirations even and unlabored, symmetrical chest expansion Eyes: PERRL Musculoskeletal: Flexion and extension of lumbar [spine] somewhat guarded secondary to pain, [antalgic gait noted] Neurological: Speech clear, no gross sensory deficit Procedure Details:: Informed consent was obtained and the risk and benefits of the procedure were explained to the patient. The patient had noninvasive monitoring placed including noninvasive blood pressure cuff and pulse oximeter. Patient's pump was interrogated. The area over the pump was cleansed with chlorhexidine as a cleansing solution. In sterile fashion the pump was accessed with a 22-gauge needle. Approximately 9.8 mls of the pump solution was removed and discarded appropriately. The pump was then refilled with 20 mL's of Dilaudid 2 mg/mL. The needle was withdrawn and a bandage was placed over the puncture site. The infusion rate was reprogrammed and increased 10% to Dilaudid 0.264 mg/day. The patient tolerated well with no complication. Plan and Disposition:: Patient tolerated the procedure well with no complications and was discharged neurologically intact. Patient will return to clinic on or before their next intrathecal refill date. We will see the patient back in the clinic at the next intrathecal refill. Patient has been instructed to contact the clinic with any concerns before the next appointment. Dr. Nieto has reviewed this note and agrees with this plan of care. This note was dictated using voice recognition software and make contain errors or omissions. -- It Is medically necessary for this patient to continue to have their intrathecal pump refilled at regular intervals. This patient had an intrathecal pain pump implanted after meeting criteria of chronic intractable pain for greater than 3 months and failing conservative treatments. Patient has committed and been compliant to the treatment plan and all planned follow up care. Since implantation of the intrathecal pain pump, the patient has had decreased pain and been more functional. Oral medications have been reduced including intake of oral opioids. Patient continues to do well with intrathecal therapy with decrease in pain symptoms and increase in functional status. Stopping intrathecal medications can lead to life threatening withdrawal, seizures, cardiac arrest, severe pain, and possible . Pumps that are not refilled at regular intervals can be damages and cause and need for replacement. We continually titrate dose and concentration to optimize pain relief and function. We are limited in concentration for certain drugs to safely deliver medications through the pump and stay within the recommendations from the Polyanalgesic Consensus Committee Guidelines. Depending on dose and concentration these pumps may need to be refilled sooner than 3 months as we titrate. A UDS is needed to verify patient's compliance with our office pain contract. This is ordered based off specific treatments related to chronic pain with the potential to abuse certain medications.
[2024-06-26 09:34] VITALS: BP 108/56; PULSE 66; RESP 16; O2SAT 96
== END 2024-06-26 09:34 | disposition home or self-care (01) ==
PROVIDERS: PCP Nurse Practitioner Family; Visit Provider Nurse Practitioner Family
DX: M51.16 Intervertebral disc disorders with radiculopathy, lumbar region (principal)
CPT/HCPCS: 62370

== ENCOUNTER 2024-06-30 15:10 | Outpatient (CLI) | payer MEDICARE, BC, SELFPAY | END 2024-06-30 23:59 | disposition home or self-care (01) | LOC: RT 15:11 | PROVIDERS: PCP Nurse Practitioner Family; Visit Provider Nurse Practitioner Family | DX: I49.1 Atrial premature depolarization (principal); I47.19 Other supraventricular tachycardia; I49.3 Ventricular premature depolarization; I48.0 Paroxysmal atrial fibrillation; R93.1 Abnormal findings on diagnostic imaging of heart and coronary circulation | CPT/HCPCS: 93270; 93272 ==

== ENCOUNTER 2024-07-09 06:37 | Outpatient (CLI) | payer MEDICARE, BC, SELFPAY ==
--- NOTE | 2024-07-09 | CA_ITS ---
APPROVED REPORT Exam: Pharmacologic Technologist: Liliya Faulkner Ht: 5 ft 5 in Wt: 232 lbs BSA: 2.11 m2 HR: 57 bpm BP: 136/76 mmHg Rhythm: Nsr Medical History Medications: Atorvastatin, Calcium polycarbophil, Cetirizine, Vit D3, Hydromorphone, Levothyroxine, Losartan-hydrochlorothiazide, Polyethylene glycol, Metoprolol succinate ER, Apixaban Allergies: Gabapentin, Indomethacin, Carisoprodol, Pseudoephedrine Stress Test Details Test: Lexiscan HR Resting HR: 57 bpm Max Heart Rate (APMHR): 150.226162 bpm Target HR (85% APMHR): 127.737687 bpm Recovery HR: 64 bpm BP Resting BP: 136.0/76.0 mmHg Max BP: 159.0/67.0 mmHg Recovery BP: 159.0/67.0 mmHg ECG Resting ECG: Nsr Stress ECG Conclusion Rare Pacs, Pvc <1.5mm ST segment changes Non-diagnostic lexiscan stress Electronically signed by : Milagros Bhardwaj MD 07/09/2024 11:24:56
--- NOTE | 2024-07-09 07:00 | NM_ITS ---
APPROVED REPORT Exam: Nuclear Stress Test Indication: shoulder pain..cp..plapitations..fatigue Patient Location: Outpatient Stress Tech: Liliya Faulkner [place] Tech:Terrie HawkinsJUAN PABLO RT(R)(N) Ht: 5 ft 5 in Wt: 229 lbs Bra Size: 38d HR: 63 bpm BP: 136/76 mmHg BSA: 2.10 m2 TID: 1.06 BMI: 38.1 History: shoulder pain..cp..plapitations..fatigue Procedure: Patient received 0.4 mg of intravenous Lexiscan, resting heart rate 63 bpm, resting blood pressure 136/76 mmHg, with Lexiscan maximum heart rate achieved was 78 bpm which is 85 % of the maximum predicted heart rate and blood pressure was 159/67 mmHg. With Lexiscan, patient denied any complaint of chest pain. Cardiac Stress and Resting SPECT Images: Cardiac Stress and Resting SPECT images were obtained using technetium 99m Myoview 29.9 mCi stress and 10.98 mCi at rest. Resting and stress imaging in supine and prone positions demonstrate no evidence of fixed or reversible perfusion defects. Gated imaging demonstrates normal global and regional LV systolic function. LVEF is calculated at 53%. Conclusion: No evidence of fixed or reversible perfusion defects. Gated imaging demonstrates normal global and regional LV systolic function. LVEF is calculated at 53%. Electronically signed by : Milagros Bhardwaj MD 07/09/2024 11:24:26
[2024-07-09] MEDS: SODIUM CHLORIDE 0.9% 10ML SYR (RAD ONLY) 10 ML IV ×2 (08:45)
[2024-07-09] MEDS: REGADENOSON 0.4MG/5ML SYRINGE 0.4 MG IV (08:45)
[2024-07-09] MEDS: ISOTOPE MYOVIEW (PER STUDY) 1 DOSE IV (08:45)
== END 2024-07-09 23:59 | disposition home or self-care (01) ==
LOC: RAD 06:39
PROVIDERS: PCP Nurse Practitioner Family; Visit Provider Nurse Practitioner Family
DX: R94.31 Abnormal electrocardiogram [ECG] [EKG] (principal); I48.91 Unspecified atrial fibrillation; R53.83 Other fatigue
CPT/HCPCS: 78452; 93017; 93018; A9502; J2785

== ENCOUNTER 2024-08-03 15:05 | Outpatient (POV) | payer MEDICARE, BC, SELFPAY ==
--- OUTSIDE RECORDS SUMMARY | 2024-08-03 15:09 | XMS_ITS | Clinical Summary ---
Author Organization Healthcare Address [address] [place] [address] Care Team Providers Care Jukebox Operator Name Role Phone Eulogio Bradshaw MD Primary Care Provider [phone] Family History Medical History Relation Name Comments Conversions - Other Mother Back pro blem Other cancer Mother Relation Name Status Comments Mother Social History Tobacco Use Types Packs/Day Years Used Date Smoking Tobacco: Never Alcohol Use Standard Drinks/Week Comments No 0 (1 standard drink = 0.6 oz pure alcohol) Alcoholic Drinks/day: Never Drank Alcohol Comments Unknown Sex and Gender Information Value Date Recorded Sex Assigned at Not on file Legal Sex Female 6:27 PM EDT Gender Identity Not on file Sexual Orientation Not on file Last Filed Vital Signs Vital Sign Reading Time Taken Comments Blood Pressure 160/80 03/18/2019 10:15 AM EST Pulse 70 03/18/2019 10:15 AM EST Temperature - - Respiratory Rate 16 08/27/2018 10:32 AM EDT Oxygen Saturation - - Inhaled Oxygen Concentration - - Weight 95.8 kg (211 lb 3.2 oz) 03/18/2019 10:15 AM EST Height 165.1 cm (5' 5 ) 03/18/2019 10:15 AM EST Body Mass Index 35.15 03/18/2019 10:15 AM EST Plan of Treatment Not on file Care Teams Jukebox Operator Relationship Specialty Start Date End Date Eulogio Bradshaw MD [address] [place] [id number] PCP - General 07/01/20
--- NOTE | 2024-08-03 15:29 | P.PCN_ITS ---
Procedure Date: 08/03/24 Time: 15:30 Anesthesiologist:: Roxanna Marquez APRN Complications:: None Pre-procedure Diagnosis:: Degenerative disc disease of lumbar spine, chronic pain syndrome Post-procedure Diagnosis:: Same Indications for Procedure:: Patient is a pleasant 69-year-old female who presents today for worsening pain. She is requesting adjustment of her intrathecal pump. She rates her pain today 6 out of 10. She denies any new falls or injuries. At her last appointment she did have her pump refilled and increased 10% to Dilaudid 2 mg/mL with a daily dose of 0.264 mg/day. She denies any side effects however felt like she really did not notice significant improvement with this. Patient would like additional adjustment. Patient does also make mention that she did get diagnosed with A- fib and was put on metoprolol and Xarelto from her doctor. Patient denies any other changes from our last appointment. Her Jerry has been reviewed and is appropriate. Physical Exam: General: Alert and oriented x3, no acute distress, pleasant and cooperative Lungs: Respirations even and unlabored, symmetrical chest expansion Eyes: PERRL Musculoskeletal: Flexion and extension of lumbar [spine] somewhat guarded secondary to pain, [antalgic gait noted] Neurological: Speech clear, no gross sensory deficit Procedure Details:: Informed consent was obtained and the risk and benefits of the procedure were explained to the patient. Patient did have noninvasive monitoring was placed including noninvasive blood pressure cuff and pulse oximeter. Patient's pump was interrogated and was reprogrammed to be increased 20% to Dilaudid 0.3168 mg/day. The patient tolerated the procedure well with no complications. Plan and Disposition:: Patient tolerated the procedure well with no complications and was discharged neurologically intact. I did discuss with the patient that I will give her a tentative 2-week follow-up in case she does still need additional adjustment. Patient was counseled that she can call and cancel this appointment if needed. Patient agrees with this plan of care. Patient will return to clinic on or before their next intrathecal refill date. We will see the patient back in the clinic at the next intrathecal refill. Patient has been instructed to contact the clinic with any concerns before the next appointment. Dr. Nieto has reviewed this note and agrees with this plan of care. This note was dictated using voice recognition software and make contain errors or omissions. -- It Is medically necessary for this patient to continue to have their intrathecal pump refilled at regular intervals. This patient had an intrathecal pain pump implanted after meeting criteria of chronic intractable pain for greater than 3 months and failing conservative treatments. Patient has committed and been compliant to the treatment plan and all planned follow up care. Since implantation of the intrathecal pain pump, the patient has had decreased pain and been more functional. Oral medications have been reduced including intake of oral opioids. Patient continues to do well with intrathecal therapy with decrease in pain symptoms and increase in functional status. Stopping intrathecal medications can lead to life threatening withdrawal, seizures, cardiac arrest, severe pain, and possible . Pumps that are not refilled at regular intervals can be damages and cause and need for replacement. We continually titrate dose and concentration to optimize pain relief and function. We are limited in concentration for certain drugs to safely deliver medications through the pump and stay within the recommendations from the Polyanalgesic Consensus Committee Guidelines. Depending on dose and concentration these pumps may need to be refilled sooner than 3 months as we titrate. A UDS is needed to verify patient's compliance with our office pain contract. This is ordered based off specific treatments related to chronic pain with the potential to abuse certain medications.
[2024-08-03 15:40] VITALS: BP 136/49; PULSE 55; RESP 18; O2SAT 96; BMI 38.2
== END 2024-08-03 23:59 | disposition home or self-care (01) ==
PROVIDERS: PCP Nurse Practitioner Family; Visit Provider Nurse Practitioner Family
DX: Z45.1 Encounter for adjustment and management of infusion pump (principal); G89.4 Chronic pain syndrome; M51.369 Other intervertebral disc degeneration, lumbar region without mention of lumbar back pain or lower extremity pain; I48.91 Unspecified atrial fibrillation; Z79.899 Other long term (current) drug therapy
CPT/HCPCS: 62368; 99213; G0463

== ENCOUNTER 2024-08-13 10:24 | Outpatient (POV) | payer MEDICARE, BC, SELFPAY ==
--- OUTSIDE RECORDS SUMMARY | 2024-08-13 10:28 | XMS_ITS | Clinical Summary ---
Author Organization Healthcare Address [address] [place] [address] Care Team Providers Care Material Handler Name Role Phone Eulogio Bradshaw MD Primary Care Provider [phone] Family History Medical History Relation Name Comments [...] of Treatment Not on file Care Teams Material Handler Relationship Specialty Start Date End Date Eulogio Bradshaw MD [address] [place] [id number] PCP - General 07/01/20
--- NOTE | 2024-08-13 11:07 | P.PCN_ITS ---
Procedure Date: 08/13/24 Time: 10:40 Anesthesiologist:: Roxanna Marquez APRN Complications:: None Pre-procedure Diagnosis:: Degenerative disc disease of lumbar spine with lumbar radiculopathy symptoms, chronic pain syndrome Post-procedure Diagnosis:: Same Indications for Procedure:: Patient is a pleasant 69-year-old female who presents today for pump adjustment. She does rate her pain today an 8 out of 10. She denies any new falls or injuries. She does state her last pump adjustment did seem to help however it seemed like it was short lived on how long improvement she got. She does state whenever she does more activity her pain does increase. She denies any side effects from her adjustment at our last visit. Patient is currently managed with Dilaudid 2 mg/mL with a daily dose of 0.3168 mg/day. Her Jerry has been reviewed and is appropriate. Physical Exam: General: Alert and oriented x3, no acute distress, pleasant and cooperative Lungs: Respirations even and unlabored, symmetrical chest expansion Eyes: PERRL Musculoskeletal: Flexion and extension of lumbar [spine] somewhat guarded secondary to pain, [antalgic gait noted] Neurological: Speech clear, no gross sensory deficit Procedure Details:: Informed consent was obtained and the risk and benefits of the procedure were explained to the patient. Patient did have noninvasive monitoring was placed including noninvasive blood pressure cuff and pulse oximeter. Patient's pump was interrogated and was reprogrammed to Dilaudid 0.3801 mg/day. The patient tolerated the procedure well with no complications. Plan and Disposition:: Patient tolerated the procedure well with no complications and was discharged neurologically intact. Patient will return to clinic on or before their next intrathecal refill date. We will see the patient back in the clinic at the next intrathecal refill. Patient has been instructed to contact the clinic with any concerns before the next appointment. Dr. Nieto has reviewed this note and agrees with this plan of care. This note was dictated using voice recognition software and make contain errors or omissions. -- It Is medically necessary for this patient to continue to have their intrathecal pump refilled at regular intervals. This patient had an intrathecal pain pump implanted after meeting criteria of chronic intractable pain for greater than 3 months and failing conservative treatments. Patient has committed and been compliant to the treatment plan and all planned follow up care. Since implantation of the intrathecal pain pump, the patient has had decreased pain an d been more functional. Oral medications have been reduced including intake of oral opioids. Patient continues to do well with intrathecal therapy with decrease in pain symptoms and increase in functional status. Stopping intrathecal medications can lead to life threatening withdrawal, seizures, cardiac arrest, severe pain, and possible . Pumps that are not refilled at regular intervals can be damages and cause and need for replacement. We continually titrate dose and concentration to optimize pain relief and function. We are limited in concentration for certain drugs to safely deliver medications through the pump and stay within the recommendations from the Polyanalgesic Consensus Committee Guidelines. Depending on dose and concentration these pumps may need to be refilled sooner than 3 months as we titrate. A UDS is needed to verify patient's compliance with our office pain contract. This is ordered based off specific treatments related to chronic pain with the potential to abuse certain medications.
[2024-08-13 12:18] VITALS: BP 118/45; PULSE 55; RESP 18; O2SAT 94; BMI 38.2
== END 2024-08-13 23:59 | disposition home or self-care (01) ==
PROVIDERS: PCP Nurse Practitioner Family; Visit Provider Nurse Practitioner Family
DX: M51.16 Intervertebral disc disorders with radiculopathy, lumbar region (principal); G89.4 Chronic pain syndrome; Z79.891 Long term (current) use of opiate analgesic
CPT/HCPCS: 62368; 99213; G0463

== ENCOUNTER 2024-09-18 08:36 | Day surgery (SDC) | payer MEDICARE, BC, SELFPAY ==
--- NOTE | 2024-09-18 08:44 | P.HP_ITS ---
History of Present Illness *Admission Date: 09/18/24 *Reason for visit:: Intrathecal refill; DDD *History of present illness: Same [facility] Disclaimer: The information contained in this section may have been updated after the patient was seen, as this information can be updated by other users. Medical History New onset a-fib [id number] Atrial fibrillation Moderate aortic regurgitation Encounter for hepatitis C screening test for low risk patient Screening for HIV (human immunodeficiency virus) Need for tetanus booster Meniscal injury 2002, surgical repair with Dr. Bishop at [facility] COVID-19 Malaise Nausea Headache Cough Lower respiratory infection Urinary tract infection Dysuria Varicose vein of leg Normal colonoscopy Implantable intrathecal infusion pump present 2017, Dr. Nieto & Dr. Quezada at [facility] Surgical History Hx of varicose vein ligation and stripping left leg, 2003, Dr. Walters @ [facility] Hx of arthroscopy of right knee 1998, Dr. Bishop at [facility] History of hysterectomy 1996, Dr. Pavon at [facility], also removed a med sized tumor H/O arthroscopy of left knee 1990 in [place] History of cholecystectomy 1982, Dr. Cam at [facility] History of esophagogastroduodenoscopy (EGD) 2018 Dr. Carranza, 2018 Dr. Kramer History of colonoscopy 2012, 03/2018, 10/2018 Previous back surgery 2008, L4-L5, Dr. Rico @ [facility] in [place] History of stress incontinence procedure using tension free vaginal tape 2000, Dr. Pavon @ [facility] History of thyroidectomy 2004, Dr. Macdonald @ [facility] Hx of tonsillectomy 1971, Dr. Stubbs at [facility] History of bilateral knee replacement 2009, Dr. Anderson Stubbs @ [facility] in [place] Family History Father History of cancer Mother History of cancer Brother History of diabetes mellitus Social History Smoking Status: Never smoker second hand exposure: No alcohol intake: never substance use type: denies use current occupational status: other Travel in the last 8 weeks?: None household members: spouse housing: house current occupational exposures/hazards: No caffeine: Yes Have you lived/traveled outside US in past 30 days?: No Contact w/someone who lives/traveled outside US past 30 days?: No Exposure to someone with infectious disease in past 14 days?: No Do you have a fever (greater than 100.4 F or 38 C)?: No Have you tested positive for COVID-19?: No Exposed to someone with COVID-19 in past 14 days?: No Do you have a sore throat?: No Do you have a cough?: No Do you have any weakness?: No Do you have any diarrhea?: No Are you experiencing any unusual bleeding?: No Do you have any muscle aches/pain?: No Do you have any abdominal pain?: No Are you experiencing loss of taste or smell?: No Other Medical History Have you received the Flu Vaccine for this season: Yes Have you received the Pneumonia Vaccine: Yes Review of Systems Review of Systems Review of systems:: pertinent systems reviewed and negative unless documented below Review of systems (narrative): Review of Systems: General: No recent weight changes, no fever, no sleep disturbances Respiratory: No cough, no shortness of air, no recurring pulmonary infections Cardiovascular/peripheral vascular: No chest pain, no palpitations, no edema, no shortness of breath Gastrointestinal: No new onset incontinence, normal bowel movements reported Genitourinary: No new onset incontinence Musculoskeletal: Chronic back pain Psychiatric: [Normal mood/affect] Neurological: [Denies weakness in extremities], [denies balance issues] Meds Home Medications and Allergies Home Medications ?Medication ?Instructions ?Recorded ?Confirmed ?Type polyethylene glycol 3350 17 17 g PO DAILY BOWELS 08/2009/18/24 History gram/dose oral powder (Miralax) hydromorphone (PF) 1 mg/mL 0.1 mg intrathecal CONT chr onic 04/21/20 09/18/24 History injection syringe pain calcium polycarbophil 625 mg 1,250 mg PO TID 04/02/23 09/18/24 History tablet (FiberCon) atorvastatin 20 mg tablet 20 mg PO DAILY Cholesterol # 90 tabs 06/01/24 09/18/24 Rx cetirizine 10 mg tablet 10 mg PO DAILY #90 tabs 05/1909/18/24 Rx losartan 50 mg-hydrochlorothiazide 1 tab PO DAILY #90 tabs 06/01/24 09/18/24 Rx 12.5 mg tablet cholecalciferol (vitamin D3) 50 50 mcg PO DAILY #90 ca ps 06/07/24 09/18/24 Rx mcg (2,000 unit) capsule metoprolol succinate 25 mg 25 mg PO DAILY #90 tabs 09/18/24 Rx tablet,extended release 24 hr (Toprol XL) rivaroxaban 20 mg tablet (Xarelto) 20 mg PO DAILY #90 tabs 07/21/24 09/18/24 Rx levothyroxine 150 mcg tablet 150 mcg PO QAM #90 tabs 0 07/29/24 09/18/24 Rx New Prescriptions to Start Prescriptions: Allergies Allergy/AdvReac Type Severity Reaction Status Date / Time carisoprodol (From [facility]) Allergy Unknown Unknown Verified 07/21/24 14:04 allergy reaction pseudoephedrine Allergy Unknown Unknown Verified 07/21/24 14:04 (PSEUDOEPHEDRINE) allergy reaction gabapentin AdvReac Confusion Verified 07/21/24 14:04 indomethacin AdvReac Unknown Verified 07/21/24 14:04 allergy reaction Exam Constitutional Constitutional: no acute distress *Routine HEENT Exam Head: Present normocephalic and atraumatic Eye: Present PERRL ENT: Present mucous membranes moist *Routine Neck Exam Neck: Present supple *Routine Respiratory Exam Respiratory: Present CTA bilaterally *Routine Cardiovascular Exam Cardiovascular: Present RRR *Routine Abdominal Exam Abdominal: Present soft *Routine Rectal Exam Rectal:: deferred *Routine Genitalia Exam Genitalia:: deferred Routine Back/Spine/Pelvis Exam Back/Spine: Present pain with flexion *Routine Skin Exam Skin: Present intact and warm *Routine Neurological Exam Neurological: Present alert and oriented X3 Routine Psychiatric Exam Psychiatric: Present normal affect and normal thought process Assessment and Plan *Assessment and plan (1) Degenerative disc disease: Status: Acute Category: Medical Plan Patient has been instructed to contact the clinic with any concerns before the next appointment. Dr. Nieto has reviewed this note and agrees with this plan of care. This note was dictated using voice recognition software and make contain errors or omissions. All injections are used with Lidocaine, Bupivacaine and dexamethasone. Occasionally urine drug screen is needed to verify patient's compliance with our office pain contract. This is ordered based off specific treatments related to chronic pain with the potential to abuse certain medications.
[2024-09-18 08:46] VITALS: BP 140/55; PULSE 73; RESP 18; O2SAT 96; BMI 38.1
--- NOTE | 2024-09-18 08:49 | P.PCN_ITS ---
Procedure Date: 09/18/24 Time: 08:57 Anesthesiologist:: Roxanna Marquez APRN Complications:: None Pre-procedure Diagnosis:: Degenerative disc disease of lumbar spine, chronic pain syndrome Post-procedure Diagnosis:: Same Indications for Procedure:: Patient is a pleasant 69-year-old female who presents today for intrathecal refill and reprogram. She states her pain is a 0 out of 10 today. She does make mention that she has had on rare occasions where she is getting a pinching sensation in and around her pump. Patient states it does not last long however she was just wondering whether or not if this should be something concerning. She is currently managed with Dilaudid 2 mg/mL with a daily dose of 0.3801 mg/day. She denies any side effects. Her Jerry has been reviewed and is appropriate. Physical Exam: General: Alert and oriented x3, no acute distress, pleasant and cooperative Lungs: Respirations even and unlabored, symmetrical chest expansion Eyes: PERRL Musculoskeletal: Flexion and extension of lumbar [spine] somewhat guarded secondary to pain, [antalgic gait noted] Neurological: Speech clear, no gross sensory deficit Procedure Details:: Informed consent was obtained and the risk and benefits of the procedure were e xplained to the patient. The patient had noninvasive monitoring placed including noninvasive blood pressure cuff and pulse oximeter. Patient's pump was interrogated. The area over the pump was cleansed with chlorhexidine as a cleansing solution. In sterile fashion the pump was accessed with a 22-gauge needle. Approximately 6.8 mls of the pump solution was removed and discarded appropriately. The pump was then refilled with 20 mL's of Dilaudid 2 mg/mL. The needle was withdrawn and a bandage was placed over the puncture site. The infusion rate was reprogrammed and continued at its current dosage. The patient tolerated well with no complication. Plan and Disposition:: Patient tolerated the procedure well with no complications and was discharged neurologically intact. Patient will return to clinic on or before their next intrathecal refill date. We will see the patient back in the clinic at the next intrathecal refill. Patient has been instructed to contact the clinic with any concerns before the next appointment. Dr. Nieto has reviewed this note and agrees with this plan of care. This note was dictated using voice recognition software and make contain errors or omissions. -- It Is medically necessary for this patient to continue to have their intrathecal pump refilled at regular intervals. This patient had an intrathecal pain pump implanted after meeting criteria of chronic intractable pain for greater than 3 months and failing conservative treatments. Patient has committed and been compliant to the treatment plan and all planned follow up care. Since implantation of the intrathecal pain pump, the patient has had decreased pain and been more functional. Oral medications have been reduced including intake of oral opioids. Patient continues to do well with intrathecal therapy with decrease in pain symptoms and increase in functional status. Stopping intrathecal medications can lead to life threatening withdrawal, seizures, cardiac arrest, severe pain, and possible . Pumps that are not refilled at regular intervals can be damages and cause and need for replacement. We continually titrate dose and concentration to optimize pain relief and function. We are limited in concentration for certain drugs to safely deliver medications through the pump and stay within the recommendations from the [employer]ensus [employer] Guidelines. Depending on dose and concentration these pumps may need to be refilled sooner than 3 months as we titrate. A UDS is needed to verify patient's compliance with our office pain contract. This is ordered based off specific treatments related to chronic pain with the potential to abuse certain medications.
[2024-09-18 08:52] VITALS: BP 140/53; PULSE 62; RESP 18; O2SAT 93
[2024-09-18 09:05] VITALS: BP 125/59; PULSE 58; RESP 18; O2SAT 95
== END 2024-09-18 09:05 | disposition home or self-care (01) ==
PROVIDERS: PCP Nurse Practitioner Family; Visit Provider Nurse Practitioner Family
DX: Z45.1 Encounter for adjustment and management of infusion pump (principal); G89.4 Chronic pain syndrome; M51.369 Other intervertebral disc degeneration, lumbar region without mention of lumbar back pain or lower extremity pain; E89.0 Postprocedural hypothyroidism; I48.91 Unspecified atrial fibrillation; I35.1 Nonrheumatic aortic (valve) insufficiency; Z79.890 Hormone replacement therapy; Z79.01 Long term (current) use of anticoagulants; Z79.899 Other long term (current) drug therapy; Z88.8 Allergy status to other drugs, medicaments and biological substances
CPT/HCPCS: 62370